=== PATIENT | female | born 1945 | race Caucasian/White ===

== ENCOUNTER 2020-09-29 05:42 | Inpatient (IN) | payer MEDICARE ==
[2020-09-29] MEDS ORDERED: LORazepam 2 MG/ML INJ IV STA ×2 (05:47→12:02)
[2020-09-29] MEDS ORDERED: IPRATROPIUM 0.5 MG/2.5 ML NEBU INHALATION STA (05:47)
[2020-09-29] MEDS ORDERED: methylPREDNISolone SOD SUCCI 125 MG/2 ML VIAL IV STA (05:47)
[2020-09-29] MEDS ORDERED: ALBUTEROL NEBULIZED 2.5 MG/3 ML INHALATION STA (05:47)
[2020-09-29] MEDS ORDERED: MORPHINE SULFATE 2 MG/ML SYRINGE IVP STA ×2 (05:48→05:58)
[2020-09-29] MEDS ORDERED: MORPHINE SULFATE 2 MG/ML SYRINGE IVP PRN (05:48)
[2020-09-29] MEDS: ENALAPRILAT 1.25 MG/ML 1 ML VIAL IVP STA ×2 (05:51→05:57)
[2020-09-29] MEDS ORDERED: ONDANSETRON 4 MG/2 ML VIAL IVP STA (05:54)
--- NOTE | 2020-09-29 05:57 | ED ---
SOB HPI - General Chief Complaint: Shortness of Breath Stated Complaint: SOB Time Seen by Provider: 09/29/20 05:47 Source: patient, EMS, RN notes reviewed, old records reviewed Mode of arrival: EMS Limitations: no limitations - History of Present Illness Initial Comments: This is a 75-year-old presenting in the [facility] secondary severe clinical condition patient has no history of high blood pressure COPD not on home O2. Patient landed difficulty breathing about 5 hours prior to EMS arrival found to be in severe shortness of breath feeling tense work of breathing and placed on BiPAP per EMS. MD Complaint: shortness of breath, cough, "asthma attack", anxiety -: days(s) Severity: moderate Severity scale (1-10): 7 Quality: aching Consistency: constant Improves With: nothing Worsens With: nothing Known History Of: asthma, congestive heart failure Context: recent URI Associated Symptoms: chest pain, cough, syncope Treatments Prior to Arrival: none - Related Data Home Medications Medication Instructions Recorded Confirmed ALPRAZolam [Xanax] 0.5 mg PO TID PRN 09/29/20 09/29/20 Azithromycin [Zithromax Z-pack (6 See Taper PO DIRECTED 09/29/20 09/29/20 tabs)] Budesonide [Pulmicort] 0.5 mg INHALATION RT-BID 09/29/20 09/29/20 Ibuprofen [Motrin Ib] 200 mg PO Q8H PRN 09/29/20 09/29/20 Ipratropium-Albuterol Nebulize 3 ml INHALATION RT-Q6H 09/29/20 09/29/20 [Duoneb 0.5 mg-3 mg/3 ml Soln] Montelukast [Singulair] 10 mg PO DAILY 09/29/20 09/29/20 Olmesartan/Hydrochlorothiazide 1 tab PO DAILY 09/29/20 09/29/20 [Benicar Hct 40-25 mg Tablet] diphenhydrAMINE [Benadryl] 25 mg PO QID PRN 09/29/20 09/29/20 predniSONE 50 mg PO DAILY 09/29/20 09/29/20 Allergies Allergy/AdvReac Type Severity Reaction Status Date / Time Penicillins Allergy Unknown Verified 09/29/20 06:59 hydrocodone AdvReac Nausea & Verified 09/29/20 06:59 Vomiting Review of Systems ROS Statement: Those systems with pertinent positive or pertinent negative responses have been documented in the HPI. ROS Other: All systems not noted in ROS Statement are negative. Past Medical History Past Medical History: COPD, Hypertension History of Any Multi-Drug Resistant Organisms: None Reported Past Surgical History: Bladder Surgery Past Psychological History: Anxiety, Depression Smoking Status: Current every day smoker Past Alcohol Use History: None Reported Past Drug Use History: None Reported - Past Family History Mother Family Medical History: Congestive Heart Failure (CHF) Father Family Medical History: Myocardial Infarction ([place]) General Exam Limitations: no limitations General appearance: alert, anxious, in distress, cachectic Head exam: Present: atraumatic, normocephalic, normal inspection Eye exam: Present: normal appearance, PERRL, EOMI. Absent: scleral icterus, conjunctival injection, periorbital swelling ENT exam: Present: normal exam, mucous membranes dry Neck exam: Present: normal inspection. Absent: tenderness, meningismus, lymphadenopathy Respiratory exam: Present: respiratory distress, wheezes, accessory muscle use, decreased breath sounds, prolonged expiratory. Absent: rales, rhonchi, stridor Cardiovascular Exam: Present: tachycardia, normal heart sounds. Absent: systolic murmur, diastolic murmur, rubs, gallop, clicks GI/Abdominal exam: Present: soft, normal bowel sounds. Absent: distended, tenderness, guarding, rebound, rigid Extremities exam: Present: normal inspection, full ROM, normal capillary refill. Absent: tenderness, pedal edema, joint swelling, calf tenderness Back exam: Present: normal inspection Neurological exam: Present: alert, oriented X3, CN II-XII intact Psychiatric exam: Present: normal affect, normal mood Skin exam: Present: warm, dry, intact, normal color. Absent: rash Course Vital Signs 09/29/20 09/29/20 09/29/20 05:44 05:51 05:52 Temperature Pulse Rate 125 H 113 H Respiratory 30 H Rate Blood Pressure 235/126 210/109 O2 Sat by Pulse 96 Oximetry 09/29/20 09/29/20 09/29/20 05:55 06:00 06:13 Temperature 97.5 F L Pulse Rate 112 H 102 H Respiratory 20 23 34 H Rate Blood Pressure 166/85 160/122 O2 Sat by Pulse 100 98 Oximetry 09/29/20 09/29/2009/29/20 06:15 06:25 06:27 Temperature 98.1 F Pulse Rate 112 H 105 H 110 H Respiratory 28 H Rate Blood Pressure 134/98 O2 Sat by Pulse 98 Oximetry 09/29/20 09/29/20 09/29/20 06:30 07:14 08:34 Temperature Pulse Rate 106 H 89 86 Respiratory 18 18 18 Rate Blood Pressure 115/64 120/71 O2 Sat by Pulse 100 100 Oximetry 09/29/20 09/29/20 09/29/20 08:44 09:19 11:03 Temperature Pulse Rate 88 80 86 Respiratory 18 18 18 Rate Blood Pressure 109/64 O2 Sat by Pulse 98 Oximetry 09/29/20 09/29/20 11:14 11:18 Temperature Pulse Rate 86 76 Respiratory 18 18 Rate Blood Pressure 138/69 O2 Sat by Pulse 95 Oximetry - Reevaluation(s) Reevaluation #1: 09/29/20 06:15 Medical record is reviewed Reevaluation #2: 09/29/20 06:16 Patient's severe us for a stress with severe work of breathing placed on BiPAP showing improvement in both vital signs heart rate and blood pressure - Consultations Consultation #1: Spoke with Dr. fine who is okay to admit this patient Medical Decision Making - Medical Decision Making 65 female DF for evaluation of severe COPD exacerbation severe hypertensive urgency emergency secondary shortness of breath and work of breathing. Patient is hypoxic placed on BiPAP on arrival to ER, x-ray otherwise negative. Coronavirus is negative. Patient will be admitted for continued evaluation management - Lab Data Result diagrams: 09/29/20 05:51 09/29/20 07:23 Lab Results 09/29/20 09/29/20 09/29/20 Range/Units 05:46 05:46 05:48 WBC (3.8-10.6) k/uL RBC (3.80-5.40) m/uL Hgb (11.4-16.0) gm/dL Hct (34.0-46.0) % MCV (80.0-100.0) fL MCH (25.0-35.0) pg MCHC (31.0-37.0) g/dL RDW (11.5-15.5) % Plt Count (150-450) k/uL MPV Neutrophils % % Lymphocytes % % Monocytes % % Eosinophils % % Basophils % % Neutrophils # (1.3-7.7) k/uL Lymphocytes # (1.0-4.8) k/uL Monocytes # (0-1.0) k/uL Eosinophils # (0-0.7) k/uL Basophils # (0-0.2) k/uL PT (9.0-12.0) sec INR (<1.2) APTT (22.0-30.0) sec VBG pH 7.22 L (7.31-7.41) VBG pCO2 69 H (37-51) mmHg VBG HCO3 27 (24-28) mmol/L Sodium 136 L (137-145) mmol/L Potassium 6.0 H (3.5-5.1) mmol/L Chloride 103 (98-107) mmol/L Carbon Dioxide 26 (22-30) mmol/L Anion Gap 7 mmol/L BUN 19 H (7-17) mg/dL Creatinine 1.10 H (0.52-1.04) mg/dL Est GFR (CKD-EPI)AfAm 56 (>60 ml/min/1.73 sqM) Est GFR (CKD-EPI)NonAf 49 (>60 ml/min/1.73 sqM) Glucose 144 H (74-99) mg/dL Plasma Lactic Acid Jc (0.7-2.0) mmol/L Calcium 9.5 (8.4-10.2) mg/dL Magnesium 2.1 (1.6-2.3) mg/dL Total Bilirubin 0.9 (0.2-1.3) mg/dL AST 43 H (14-36) U/L ALT 20 (4-34) U/L Alkaline Phosphatase 95 (38-126) U/L Lactate Dehydrogenase 1092 H (313-618) U/L Creatine Kinase 207 H (30-135) U/L CK-MB (CK-2) 6.2 H (0.0-2.4) ng/mL Troponin I <0.012 (0.000-0.034) ng/mL NT-Pro-B Natriuret Pep pg/mL Total Protein 7.9 (6.3-8.2) g/dL Albumin 4.6 (3.5-5.0) g/dL Coronavirus (PCR) (Not Detectd) 09/29/20 09/29/20 09/29/20 Range/Units 05:49 05:51 05:51 WBC 17.9 H (3.8-10.6) k/uL RBC 4.94 (3.80-5.40) m/uL Hgb 15.4 (11.4-16.0) gm/dL Hct 47.4 H (34.0-46.0) % MCV 95.9 (80.0-100.0) fL MCH 31.3 (25.0-35.0) pg MCHC 32.6 (31.0-37.0) g/dL RDW 13.3 (11.5-15.5) % Plt Count 499 H (150-450) k/uL MPV 7.0 Neutrophils % 73 % Lymphocytes % 17 % Monocytes % 6 % Eosinophils % 2 % Basophils % 1 % Neutrophils # 13.2 H (1.3-7.7) k/uL Lymphocytes # 3.1 (1.0-4.8) k/uL Monocytes # 1.1 H (0-1.0) k/uL Eosinophils # 0.3 (0-0.7) k/uL Basophils # 0.1 (0-0.2) k/uL PT 9.5 (9.0-12.0) sec INR 0.9 (<1.2) APTT 20.9 L (22.0-30.0) sec VBG pH (7.31-7.41) VBG pCO2 (37-51) mmHg VBG HCO3 (24-28) mmol/L Sodium (137-145) mmol/L Potassium (3.5-5.1) mmol/L Chloride (98-107) mmol/L Carbon Dioxide (22-30) mmol/L Anion Gap mmol/L BUN (7-17) mg/dL Creatinine (0.52-1.04) mg/dL Est GFR (CKD-EPI)AfAm (>60 ml/min/1.73 sqM) Est GFR (CKD-EPI)NonAf (>60 ml/min/1.73 sqM) Glucose (74-99) mg/dL Plasma Lactic Acid Jc 1.1 (0.7-2.0) mmol/L Calcium (8.4-10.2) mg/dL Magnesium (1.6-2.3) mg/dL Total Bilirubin (0.2-1.3) mg/dL AST (14-36) U/L ALT (4-34) U/L Alkaline Phosphatase (38-126) U/L Lactate Dehydrogenase (313-618) U/L Creatine Kinase (30-135) U/L CK-MB (CK-2) (0.0-2.4) ng/mL Troponin I (0.000-0.034) ng/mL NT-Pro-B Natriuret Pep pg/mL Total Protein (6.3-8.2) g/dL Albumin (3.5-5.0) g/dL Coronavirus (PCR) (Not Detectd) 09/29/20 09/29/20 Range/Units 05:51 05:54 WBC (3.8-10.6) k/uL RBC (3.80-5.40) m/uL Hgb (11.4-16.0) gm/dL Hct (34.0-46.0) % MCV (80.0-100.0) fL MCH (25.0-35.0) pg MCHC (31.0-37.0) g/dL RDW (11.5-15.5) % Plt Count (150-450) k/uL MPV Neutrophils % % Lymphocytes % % Monocytes % % Eosinophils % % Basophils % % Neutrophils # (1.3-7.7) k/uL Lymphocytes # (1.0-4.8) k/uL Monocytes # (0-1.0) k/uL Eosinophils # (0-0.7) k/uL Basophils # (0-0.2) k/uL PT (9.0-12.0) sec INR (<1.2) APTT (22.0-30.0) sec VBG pH (7.31-7.41) VBG pCO2 (37-51) mmHg VBG HCO3 (24-28) mmol/L Sodium (137-145) mmol/L Potassium (3.5-5.1) mmol/L Chloride (98-107) mmol/L Carbon Dioxide (22-30) mmol/L Anion Gap mmol/L BUN (7-17) mg/dL Creatinine (0.52-1.04) mg/dL Est GFR (CKD-EPI)AfAm (>60 ml/min/1.73 sqM) Est GFR (CKD-EPI)NonAf (>60 ml/min/1.73 sqM) Glucose (74-99) mg/dL Plasma Lactic Acid Jc (0.7-2.0) mmol/L Calcium (8.4-10.2) mg/dL Magnesium (1.6-2.3) mg/dL Total Bilirubin (0.2-1.3) mg/dL AST (14-36) U/L ALT (4-34) U/L Alkaline Phosphatase (38-126) U/L Lactate Dehydrogenase (313-618) U/L Creatine Kinase (30-135) U/L CK-MB (CK-2) (0.0-2.4) ng/mL Troponin I (0.000-0.034) ng/mL NT-Pro-B Natriuret Pep 407 pg/mL Total Protein (6.3-8.2) g/dL Albumin (3.5-5.0) g/dL Coronavirus (PCR) Not Detected (Not Detectd) - EKG Data -: EKG Interpreted by Me (EKG shows sinus tachycardia 122 NH 128 QRS 74 QTc 4:30) - Radiology Data Radiology results: report reviewed (Chest x-rays negative for acute disease), image reviewed Critical Care Time Critical Care Time: Yes Total Critical Care Time: 31 Disposition Clinical Impression: Acute exacerbation of chronic obstructive pulmonary disease, Acute respiratory failure, Hypertension, Hypoxia Disposition: ADMITTED IP TO THIS HOSP Condition: Serious Is patient prescribed a controlled substance at d/c from ED?: No
[2020-09-29 06:16] LABS: VBG PH 7.22 (7.31-7.41)
[2020-09-29 06:17] LABS: Basophils # (A) 0.1 k/uL (0-0.2); Basophils % (A) 1 %; Eosinophils # (A) 0.3 k/uL (0-0.7); Eosinophils % (A) 2 %; HCT 47.4 % (34.0-46.0); HGB 15.4 gm/dL (11.4-16.0); Lymphocytes # (A) 3.1 k/uL (1.0-4.8); Lymphocytes % (A) 17 %; MCH 31.3 pg (25.0-35.0); MCHC 32.6 g/dL (31.0-37.0); MCV 95.9 fL (80.0-100.0); Monocytes # (A) 1.1 k/uL (0-1.0); Monocytes % (A) 6 %; Neutrophils # (A) 13.2 k/uL (1.3-7.7); Neutrophils % (A) 73 %; Platelet Count 499 k/uL (150-450); RBC 4.94 m/uL (3.80-5.40); RDW 13.3 % (11.5-15.5); WBC 17.9 k/uL (3.8-10.6)
--- NOTE | 2020-09-29 06:22 | XR ---
EXAM: XR Chest, 1 View CLINICAL HISTORY: ITS.REASON XR Reason: sob TECHNIQUE: Frontal view of the chest. COMPARISON: 09/11/2016 FINDINGS: Lungs: The lungs are well-aerated without lobar consolidation, accounting for limitations in evaluation of the lung apices secondary to overlying respiratory artifact. Minimal linear subsegmental atelectatic changes at the right lung base are similar to the previous examination. The pulmonary vas suture demonstrates no significant radiographic abnormality. Pleural space: Unremarkable. No pneumothorax. No large pleural effusion. Heart: Unremarkable. No cardiomegaly. Mediastinum: No significant abnormality identified. The trachea is midline. Bones/joints: Unremarkable. IMPRESSION: No focal consolidation or significant alteration from the previous examination.
[2020-09-29] MEDS ORDERED: SODIUM CHLORIDE 0.9% 1,000 ML IV STA ×2 (06:33)
[2020-09-29] MEDS ORDERED: SODIUM CHLORIDE 0.9% 500 ML 500 ML IV STA (06:33)
[2020-09-29 06:38] LABS: INR 0.9 (<1.2); Prothrombin Time 9.5 sec (9.0-12.0)
[2020-09-29 06:48] LABS: Albumin 4.6 g/dL (3.5-5.0); Calcium 9.5 mg/dL (8.4-10.2); Magnesium 2.1 mg/dL (1.6-2.3); Total Bilirubin 0.9 mg/dL (0.2-1.3); Total Protein 7.9 g/dL (6.3-8.2)
[2020-09-29] MEDS ORDERED: IPRATROPIUM-ALBUTEROL 3 ML NEB INHALATION PRN (06:57)
[2020-09-29 07:05] LABS: Partial Thromboplastin Time 20.9 sec (22.0-30.0)
[2020-09-29] MEDS ORDERED: SODIUM BICARB 8.4% 50 ML SYR (1 MEQ/ML) IV STA (07:05)
[2020-09-29] MEDS ORDERED: DEXTROSE 50% SYRINGE 50 ML IVP STA (07:05)
[2020-09-29] MEDS ORDERED: INSULIN REGULAR 100 UNIT/ML VIAL IV ONE (07:05)
[2020-09-29 07:13] LABS: Creatine Kinase MB 6.2 ng/mL (0.0-2.4); Troponin I <0.012 ng/mL (0.000-0.034)
[2020-09-29] MEDS: ENOXAPARIN 40 MG/0.4 ML SYRINGE SQ SCH (07:53)
[2020-09-29] MEDS: ALBUTEROL NEBULIZED 2.5 MG/3 ML INHALATION SCH ×2 (08:34→11:37)
[2020-09-29] MEDS: IPRATROPIUM-ALBUTEROL 3 ML NEB INHALATION SCH ×4 (08:34→20:33)
--- NOTE | 2020-09-29 08:54 | CONS ---
CONSULTATION PULMONARY/CRITICAL CARE CONSULTATION: DATE OF CONSULTATION: September 29, 2020 This is a 75-year-old female who sees Dr. Iglesias. She comes into the emergency room with 3 or 4 days worth of increasing shortness of breath. The patient apparently does have a history of underlying COPD. She takes nebulizer treatments at home. She apparently has never seen a lung doctor. She does have oxygen at home that she primarily uses at nighttime and when she exerts herself. She was seen in the emergency room by the ER physician. She was admitted with a diagnosis of COPD exacerbation. Her COVID test was negative. Anyway, the patient is currently on BiPAP with the settings of IPAP 12, EPAP 5 and 80%. I have asked the respiratory therapist to turn down the FiO2. In addition, she is on saline at 130 mL an hour. We are going to turn that down to 75 mL an hour. We will make sure the patient has DuoNeb q.i.d. and p.r.n. as well as formoterol 20 mcg and Pulmicort 1 mg twice a day and Solu-Medrol 60 mg q.6. In addition, the patient will be placed on doxycycline 100 mg twice a day. PAST MEDICAL HISTORY: Positive for COPD and hypertension. SURGICAL HISTORY: Surgical history includes bladder surgery. SOCIAL HISTORY: Positive for ongoing tobacco use. She denies any alcohol use or illicit drug use. FAMILY HISTORY: Noncontributory. Today she is with her daughter, her grandson and granddaughter here in the ER. ALLERGIES: PENICILLIN. HOME MEDICATIONS: Home medications include Pulmicort, DuoNeb, Benadryl, olmesartan/hydrochlorothiazide, which is Benicar HCT 40/25, ibuprofen, prednisone, Singulair, Zithromax, and Xanax. REVIEW OF SYSTEMS: Review of systems is difficult to obtain from this patient as she is a bit lethargic. She is feeling a bit better. Her major complaint coming into the emergency room was shortness of breath. PHYSICAL EXAMINATION: VITAL SIGNS: Current vital signs are reviewed. Her temperature is 97.5, heart rate is 106, respiratory rate 18, blood pressure 120/71, mean 87 and saturations on the BiPAP are 100%. GENERAL: Appears in no acute distress. HEENT: Examination is grossly unremarkable. NECK: Supple. Full range of motion. No adenopathy. Neck veins are flat. CARDIOVASCULAR: Examination reveals tachycardia. Heart rate about 100. S1, S2 normal. Heart sounds are distant. No murmur. LUNGS: Reveal diffuse inspiratory and expiratory wheezes and rhonchi. Breath sounds are diminished throughout. There is prolongation. No crackles. ABDOMEN: Obese. Bowel sounds are heard. EXTREMITIES: Are intact. No edema. SKIN: Without rash. NEUROLOGIC: Examination is brief but nonfocal. She is quite lethargic. LABS: Labs are reviewed. White count 17.9, hemoglobin, hematocrit were stable, platelet count 499,000. PT, INR normal. PTT 20.9. Venous blood gas shows a pCO2 of 69 and a pH of 7.22. Sodium 136, potassium 6 repeat 4.6, chloride 103, CO2 of 26. Anion gap is 7. BUN and creatinine were 19 and 1.10. Glucose was 144. LDH 1092. CK 207, CK-MB 6.2. Troponin was normal. N-terminal proBNP was 407. COVID test was negative. A chest x-ray shows small bilateral pleural effusions and changes of underlying COPD. CURRENT MEDICATIONS: Current medications are reviewed. The patient is on Pulmicort, doxycycline, Lovenox, formoterol, DuoNeb, Solu-Medrol, morphine, and saline at 75 mL an hour. ASSESSMENT: 1. Chronic obstructive pulmonary disease exacerbation, in a patient with chronic hypoxemic respiratory failure. 2. COVID-19 testing negative. 3. History of hypertension. 4. Ongoing tobacco use with nicotine addiction. PLAN: The patient is on DuoNeb q.i.d. and p.r.n. We also added Pulmicort 1 mg and formoterol 20 mcg twice a day. She will continue on Solu-Medrol 60 mg q.6. We added doxycycline 100 mg twice a day. We discontinued a lot of unnecessary medications including benzodiazepine. I have asked respiratory therapy to come down and titrate the FiO2 down. No additional recommendations are made. We will continue to follow. She can be admitted to the general medical floor with telemetry monitoring. HARJIT / ABIGAIL: [id number] /
[2020-09-29] MEDS: DOXYCYCLINE 100 MG CAP PO SCH ×2 (09:20→21:24)
[2020-09-29] MEDS: methylPREDNISolone SOD SUCCI 125 MG/2 ML VIAL IV SCH ×3 (12:23→23:54)
--- NOTE | 2020-09-29 12:29 | P.HPIM ---
History of Present Illness H&P Date: 09/29/20 Chief Complaint: shortness of breath This is a 75-year-old female patient of Dr. Iglesias with a past medical history of advanced COPD on supplemental home oxygen, tobacco use, and hypertension. Patient presented to the emergency room with progressive shortness of breath. Patient was states she was seen by urgent care about 3-4 day ago and treated for bronchitis, she was placed on azithromycin and a prednisone taper. Patient reports over the last few days she has progressively been getting more short of breath and having a harder time breathing. Patient eventually called EMS where she was found to be in severe respiratory distress. Patient was placed on BiPAP and eventually breathing did stabalize. Chest x-ray showed small bilateral pleural effusions and underlying COPD. Pulmonary has been consulted. She was started on Duonebs, Pulmicort, Formoterol and Solumedrol. Her COVID testing was negative. Review of Systems Constitutional: Reports fatigue, Reports weakness, Denies chills, Denies fever Ears, nose, mouth and throat: Denies headache, Denies nasal congestion, Denies nose pain, Denies odynophagia, Denies sinus pain, Denies sinus pressure, Denies sore throat Cardiovascular: Reports dyspnea on exertion, Reports shortness of breath, Denies chest pain, Denies edema, Denies irregular heart beat, Denies leg edema, Denies orthopnea, Denies palpitations, Denies syncope Respiratory: Reports congestion, Reports cough, Reports cough with sputum, Reports dyspnea, Reports home oxygen, Reports wheezing Gastrointestinal: Denies abdominal pain, Denies constipation, Denies diarrhea, Denies indigestion, Denies loss of appetite, Denies nausea, Denies vomiting Genitourinary: Denies difficulty voiding, Denies urgency, Denies urinary frequency Musculoskeletal: Denies arm numbness/tingling, Denies frequent falls, Denies leg numbness/tingling, Denies muscle weakness Integumentary: Denies lesions, Denies pruritus, Denies rash, Denies sores, D enies wounds Neurological: Denies gait dysfunction, Denies headaches, Denies loss of vision, Denies numbness, Denies paralysis, Denies syncope, Denies weakness Psychiatric: Denies anxiety, Denies confusion, Denies irritability, Denies memory loss, Denies suicidal ideation Endocrine: Reports fatigue, Denies palpitations, Denies polydipsia, Denies polyphagia, Denies polyuria Past Medical History Past Medical History: COPD, Hypertension Additional Past Medical History / Comment(s): on home oxygen PRN and at HS History of Any Multi-Drug Resistant Organisms: None Reported Past Surgical History: Bladder Surgery Additional Past Surgical History / Comment(s): carotid endarterectomy Past Psychological History: Anxiety, Depression Smoking Status: Current every day smoker Past Alcohol Use History: None Reported Past Drug Use History: None Reported - Past Family History Mother Family Medical History: Congestive Heart Failure (CHF) ( her 80s) Father Family Medical History: Myocardial Infarction ([place]) Medications and Allergies Home Medications Medication Instructions Recorded Confirmed Type ALPRAZolam [Xanax] 0.5 mg PO TID PRN 09/29/20 09/29/20 History Azithromycin [Zithromax Z-pack (6 See Taper PO DIRECTED 09/29/20 09/29/20 History tabs)] Budesonide [Pulmicort] 0.5 mg INHALATION RT-BID 09/29/20 09/29/20 History Ibuprofen [Motrin Ib] 200 mg PO Q8H PRN 09/29/20 09/29/20 History Ipratropium-Albuterol Nebulize 3 ml INHALATION RT-Q6H 09/29/20 09/29/20 History [Duoneb 0.5 mg-3 mg/3 ml Soln] Montelukast [Singulair] 10 mg PO DAILY 09/29/20 09/29/20 History Olmesartan/Hydrochlorothiazide 1 tab PO DAILY 09/29/20 09/29/20 History [Benicar Hct 40-25 mg Tablet] diphenhydrAMINE [Benadryl] 25 mg PO QID PRN 09/29/20 09/29/20 History predniSONE 50 mg PO DAILY 09/29/20 09/29/20 History Allergies Allergy/AdvReac Type Severity Reaction Status Date / Time Penicillins Allergy Unknown Verified 09/29/20 06:59 hydrocodone AdvReac Nausea & Verified 09/29/20 06:59 Vomiting Physical Exam Vitals: Vital Signs Temp Pulse Resp BP Pulse Ox 09/29/20 11:18 76 18 138/69 95 09/29/20 11:14 86 18 09/29/20 11:03 86 18 09/29/20 09:19 80 18 109/64 98 09/29/20 08:44 88 18 09/29/20 08:34 86 18 09/29/20 07:14 89 18 120/71 100 09/29/20 06:30 106 H 18 115/64 100 09/29/20 06:27 110 H 09/29/20 06:25 98.1 F 105 H 28 H 134/98 98 09/29/20 06:15 112 H 09/29/20 06:13 34 H 09/29/20 06:00 97.5 F L 102 H 23 160/122 98 09/29/20 05:55 112 H 20 166/85 100 09/29/20 05:52 210/109 09/29/20 05:51 113 H 09/29/20 05:44 125 H 30 H 235/126 96 Intake and Output 09/28/20 09/29/20 09/29/20 22:59 06:59 14:59 Other: Weight 58.967 kg - Constitutional General appearance: cooperative, mild distress - EENT Eyes: EOMI, PERRLA, normal appearance ENT: hearing grossly normal, no normal oropharynx, no pharyngeal erythema, no thrush - Neck Neck: no lymphadenopathy, normal ROM - Respiratory Respiratory: bilateral: diminished, rhonchi, wheezing, negative: dullness, rales - Cardiovascular Rhythm: regular Heart sounds: normal: S1, S2 - Gastrointestinal General gastrointestinal: no distended, normal bowel sounds, no organomegaly, soft, no tenderness - Neurologic Neurologic: CNII-XII intact - Musculoskeletal Musculoskeletal: generalized weakness, strength equal bilaterally - Psychiatric Psychiatric: A&O x's 3, appropriate affect, intact judgment & insight Results CBC & Chem 7: 09/29/20 05:51 09/29/20 07:23 Labs: Abnormal Lab Results - Last 24 Hours (Table) 09/29/20 09/29/20 09/29/20 Range/Units 05:46 05:46 05:48 WBC (3.8-10.6) k/uL Hct (34.0-46.0) % Plt Count (150-450) k/uL Neutrophils # (1.3-7.7) k/uL Monocytes # (0-1.0) k/uL APTT (22.0-30.0) sec VBG pH 7.22 L (7.31-7.41) VBG pCO2 69 H (37-51) mmHg Sodium 136 L (137-145) mmol/L Potassium 6.0 H (3.5-5.1) mmol/L BUN 19 H (7-17) mg/dL Creatinine 1.10 H (0.52-1.04) mg/dL Glucose 144 H (74-99) mg/dL AST 43 H (14-36) U/L Lactate Dehydrogenase 1092 H (313-618) U/L Creatine Kinase 207 H (30-135) U/L CK-MB (CK-2) 6.2 H (0.0-2.4) ng/mL 09/29/20 09/29/20 Range/Units 05:51 05:51 WBC 17.9 H (3.8-10.6) k/uL Hct 47.4 H (34.0-46.0) % Plt Count 499 H (150-450) k/uL Neutrophils # 13.2 H (1.3-7.7) k/uL Monocytes # 1.1 H (0-1.0) k/uL APTT 20.9 L (22.0-30.0) sec VBG pH (7.31-7.41) VBG pCO2 (37-51) mmHg Sodium (137-145) mmol/L Potassium (3.5-5.1) mmol/L BUN (7-17) mg/dL Creatinine (0.52-1.04) mg/dL Glucose (74-99) mg/dL AST (14-36) U/L Lactate Dehydrogenase (313-618) U/L Creatine Kinase (30-135) U/L CK-MB (CK-2) (0.0-2.4) ng/mL Assessment and Plan Plan: 1. Acute hypoxic respiratory failure secondary to COPD exacerbation and bronchitis. Continue BiPAP, continue duo nebs along with Pulmicort and Perforomist, Solu-Medrol 60 mg IV every 6 hours and doxycycline 100 mg twice a day. Pulmonary consult appreciated. 2. Acute COPD exacerbation with severe bronchitis. See plan #1 3. Chronic tobacco use. Discussed smoking cessation, if needed may do nicotine patch 4. Hypertension. Continue Benicar 40/25 mg daily 5. Generalized anxiety disorder. hold Xanax DVT prophylaxis. Lovenox GI Prophylaxis. Pantoprazole The above impression and plan of care have been discussed and directed by signing physician. Pretty Nunez nurse practitioner acting as scribe for signing physician.
[2020-09-29] MEDS: FORMOTEROL FUMARATE 20 MCG/2 ML NEBU INHALATION SCH (20:33)
[2020-09-29] MEDS: BUDESONIDE 1 MG/2 ML NEBU INHALATION SCH (20:33)
[2020-09-30] MEDS: methylPREDNISolone SOD SUCCI 125 MG/2 ML VIAL IV SCH ×4 (06:13→23:33)
[2020-09-30] MEDS: MONTELUKAST 10 MG TAB PO SCH (08:27)
[2020-09-30] MEDS: ENOXAPARIN 40 MG/0.4 ML SYRINGE SQ SCH (08:27)
[2020-09-30] MEDS: hydroCHLOROthiazide 25 MG TAB PO SCH (08:27)
[2020-09-30] MEDS: LOSARTAN 50 MG TAB PO SCH (08:27)
[2020-09-30] MEDS: PANTOPRAZOLE 40 MG TABLET PO SCH (08:27)
[2020-09-30] MEDS: DOXYCYCLINE 100 MG CAP PO SCH ×2 (08:28→21:14)
[2020-09-30] MEDS: FORMOTEROL FUMARATE 20 MCG/2 ML NEBU INHALATION SCH ×2 (08:31→19:47)
[2020-09-30] MEDS: IPRATROPIUM-ALBUTEROL 3 ML NEB INHALATION SCH ×4 (08:31→19:47)
[2020-09-30] MEDS: BUDESONIDE 1 MG/2 ML NEBU INHALATION SCH ×2 (08:31→19:47)
[2020-09-30] MEDS: NICOTINE 14MG/24HR PATCH TRANSDERM SCH (08:38)
--- NOTE | 2020-09-30 12:30 | P.PN ---
Subjective Progress Note Date: 09/30/20 Principal diagnosis: Acute COPD exacerbation, 75-year-old white female patient who was admitted to the hospital on 09/29/2020 with him symptoms of increasing shortness of breath. She tested negative for COVID, chest x-ray showed small bilateral pleural effusions and changes of underlying COPD. Patient was started on breathing treatments, IV steroids, she did require BiPAP support, today she is feeling better. She is currently on 3 L of oxygen, she is tolerating it well, she is still quite dyspneic and bronchospastic, but overall feeling on better. Pulse ox of 93%, she's been afebrile, his on bronchodilators in the form of Pulmicort and Perforomist, DuoNeb, IV steroids at 60 mg every 6 hours. No Fever or chills Objective - Vital Signs Vital signs: Vital Signs Temp 97.8 F 09/30/20 08:00 Pulse 96 09/30/20 08:16 Resp 16 09/30/20 08:00 BP 120/81 09/30/20 08:00 Pulse Ox 93 L 09/30/20 08:00 Intake & Output 09/29/20 09/30/20 09/30/20 18:59 06:59 18:59 Intake Total 200 Balance 200 Weight 69.5 kg Intake: Intake, IV Titration 200 Amount Sodium Chloride 0.9% 1, 200 000 ml @ 75 mls/hr IV . [id number] [facility] Rx#:[id number] - Exam GENERAL EXAM: Alert, very pleasant, 75-year-old white female, on 3 L of oxygen and the pulse ox of 92%, bronchospastic, dyspneic, although improved from yesterday's exam, comfortable in no apparent distress. HEAD: Normocephalic/atraumatic. EYES: Normal reaction of pupils, equal size. Conjunctiva pink, sclera white. NOSE: Clear with pink turbinates. THROAT: No erythema or exudates. NECK: No masses, no JVD, no thyroid enlargement, no adenopathy. CHEST: No chest wall deformity. Symmetrical expansion. LUNGS: Equal air entry with diffuse wheezes CVS: Regular rate and rhythm, normal S1 and S2, no gallops, no murmurs, no rubs ABDOMEN: Soft, nontender. No hepatosplenomegaly, normal bowel sounds, no guarding or rigidity. EXTREMITIES: No clubbing, no edema, no cyanosis, 2+ pulses and upper and lower extremities. MUSCULOSKELETAL: Muscle strength and tone normal. SPINE: No scoliosis or deformity SKIN: No rashes CENTRAL NERVOUS SYSTEM: Alert and oriented -3. No focal deficits, tone is normal in all 4 extremities. PSYCHIATRIC: Alert and oriented -3. Appropriate affect. Intact judgment and insight. - Labs CBC & Chem 7: 09/29/20 05:51 09/29/20 07:23 Labs: Microbiology - Last 24 Hours (Table) 09/29/20 06:29 Blood Culture - Preliminary Blood No Growth after 24 hours Assessment and Plan Plan: Assessment: #1. Acute exacerbation of chronic obstructive pulmonary disease. Patient ruled out for COVID 19 #2. Chronic hypoxemic respiratory failure related to advanced COPD #3. Ongoing and chronic tobacco use #4. History of hypertension Plan: Continue with current medical treatment, will add doxycycline for antibiotic coverage, continue with bronchodilators and IV steroids, may use BiPAP as needed. Uncle spastic and dyspneic, not quite ready for discharge, we'll continue with current medical treatment I performed a history & physical examination of the patient and discussed their management with my nurse practitioner, Stacie Hong. I reviewed the nurse practitioner's note and agree with the documented findings and plan of care. Lung sounds are positive for diminished breath sounds, wheezing and rhonchi The findings and the impression was discussed with the patient. I attest to the documentation by the nurse practitioner. Time with Patient: Less than 30
--- NOTE | 2020-09-30 12:41 | P.PN ---
Subjective This is a 75-year-old female patient of Dr. Iglesias with a past medical history of advanced COPD on supplemental home oxygen, tobacco use, and hy pertension. Patient presented to the emergency room with progressive shortness of breath. Patient was states she was seen by urgent care about 3-4 day ago and treated for bronchitis, she was placed on azithromycin and a prednisone taper. Patient reports over the last few days she has progressively been getting more short of breath and having a harder time breathing. Patient eventually called EM S where she was found to be in severe respiratory distress. Patient was placed on BiPAP and eventually breathing did stabalize. Chest x-ray showed small bilateral pleural effusions and underlying COPD. Pulmonary has been consulted. She was started on Duonebs, Pulmicort, Formoterol and Solumedrol. Her COVID testing was negative. 09/30: Patient evaluated this morning, resting in bed comfortably, doing a nebulizer treatment, she is in no acute distress. Patient was able to wean off of the BiPAP and is currently on 3 L nasal oxygen saturation 93%. She continues with the DuoNeb's along with Pulmicort, doxycycline, Perforomist, and Solu- Medrol 60 mg IV every 6 hours. Vital signs are stable, she is afebrile 97.8, heart rate 94, respiratory of 16, blood pressure 120/81. Blood cultures show no growth to date. Patient is improving, but not ready for discharge, will continue with current treatment plan. Pulmonary following. Objective - Vital Signs Vital signs: Vital Signs Temp 97.8 F 09/30/20 08:00 Pulse 96 09/30/20 08:16 Resp 16 09/30/20 08:00 BP 120/81 09/30/20 08:00 Pulse Ox 93 L 09/30/20 08:00 Intake & Output 09/29/20 09/30/20 09/30/20 18:59 06:59 18:59 Intake Total 200 Balance 200 Weight 69.5 kg Intake: Intake, IV Titration 200 Amount Sodium Chloride 0.9% 1, 200 000 ml @ 75 mls/hr IV . [id number] [facility] Rx#:[id number] - Exam - Constitutional General appearance: cooperative, no acute distress - EENT Eyes: EOMI, PERRLA, normal appearance ENT: hearing grossly normal, no normal oropharynx, no pharyngeal erythema, no thrush - Neck Neck: no lymphadenopathy, normal ROM - Respiratory Respiratory: bilateral: diminished, diffuse rhonchi, slight expiratory wheeze - Cardiovascular Rhythm: regular Heart sounds: normal: S1, S2 - Gastrointestinal General gastrointestinal: no distended, normal bowel sounds, no organomegaly, soft, no tenderness - Neurologic Neurologic: CNII-XII intact - Musculoskeletal Musculoskeletal: generalized weakness, strength equal bilaterally - Psychiatric Psychiatric: A&O x's 3, appropriate affect, intact judgment & insight - Labs CBC & Chem 7: 09/29/20 05:51 09/29/20 07:23 Labs: Microbiology - Last 24 Hours (Table) 09/29/20 06:29 Blood Culture - Preliminary Blood No Growth after 24 hours Assessment and Plan Plan: 1. Acute hypoxic respiratory failure secondary to COPD exacerbation and bronchitis. Continue BiPAP, continue duo nebs along with Pulmicort and Perforomist, Solu-Medrol 60 mg IV every 6 hours and doxycycline 100 mg twice a day. Pulmonary consult appreciated. 2. Acute COPD exacerbation with severe bronchitis. See plan #1 3. Chronic tobacco use. Discussed smoking cessation, Nicotine patch ordered 4. Hypertension. Continue Benicar 40/25 mg daily 5. Generalized anxiety disorder. hold Xanax DVT prophylaxis. Lovenox GI Prophylaxis. Pantoprazole The above impression and plan of care have been discussed and directed by signing physician. Pretty Nunez nurse practitioner acting as scribe for signing physician.
[2020-10-01] MEDS: methylPREDNISolone SOD SUCCI 125 MG/2 ML VIAL IV SCH (06:04)
[2020-10-01 06:38] LABS: HCT 40.2 % (34.0-46.0); HGB 12.7 gm/dL (11.4-16.0); MCH 30.6 pg (25.0-35.0); MCHC 31.6 g/dL (31.0-37.0); MCV 96.9 fL (80.0-100.0); Mean Platelet Volume 7.6; Platelet Count 378 k/uL (150-450); RBC 4.14 m/uL (3.80-5.40); RDW 13.8 % (11.5-15.5); WBC 11.9 k/uL (3.8-10.6)
[2020-10-01] MEDS: MONTELUKAST 10 MG TAB PO SCH (07:58)
[2020-10-01] MEDS: LOSARTAN 50 MG TAB PO SCH (07:58)
[2020-10-01] MEDS: hydroCHLOROthiazide 25 MG TAB PO SCH (07:58)
[2020-10-01] MEDS: NICOTINE 14MG/24HR PATCH TRANSDERM SCH (07:58)
[2020-10-01] MEDS: PANTOPRAZOLE 40 MG TABLET PO SCH (07:58)
[2020-10-01] MEDS: DOXYCYCLINE 100 MG CAP PO SCH ×2 (07:58→20:13)
[2020-10-01] MEDS: ENOXAPARIN 40 MG/0.4 ML SYRINGE SQ SCH (07:58)
[2020-10-01] MEDS: FORMOTEROL FUMARATE 20 MCG/2 ML NEBU INHALATION SCH ×2 (09:11→19:36)
[2020-10-01] MEDS: BUDESONIDE 1 MG/2 ML NEBU INHALATION SCH ×2 (09:11→19:36)
[2020-10-01] MEDS: IPRATROPIUM-ALBUTEROL 3 ML NEB INHALATION SCH ×4 (09:11→19:36)
[2020-10-01 10:52] LABS: African American GFR (CKD) 50.8 (60.0-200.0); Anion Gap 9.1 mmol/L (4.00-12.00); BUN/Creat Ratio 20.83 Ratio (12.00-20.00); Calcium 9.3 mg/dL (8.7-10.3); Carbon Dioxide 24.9 mmol/L (21.6-31.8); Non-African American GFR(CKD) 43.9 (60.0-200.0); Potassium 4.3 mmol/L (3.5-5.5)
--- NOTE | 2020-10-01 12:36 | P.PN ---
Subjective Progress Note Date: 10/01/20 Principal diagnosis: Acute exacerbation of chronic obstructive pulmonary disease The patient is seen today 10/01/2020 in follow-up on the regular medical floor. She was admitted with an acute exacerbation of chronic obstructive pulmonary disease. Tested negative for CoVID 19 pneumonia. She is currently up in a chair at the bedside. Awake and alert in no acute distress. Maintaining O2 saturation in the low 90s on 3 L/m per nasal cannula. White count 11.9. Hemoglobin 12.7. Sodium 138. Potassium 4.3. Creatinine 1.2. Continued on bronchodilators, Vibramycin, IV steroids. NicoDerm patches in place.. Objective - Vital Signs Vital signs: Vital Signs Temp 97.8 F 10/01/20 06:59 Pulse 84 10/01/20 12:24 Resp 19 10/01/20 06:59 BP 146/83 10/01/20 06:59 Pulse Ox 90 L 10/01/20 06:59 Intake & Output 09/30/20 10/01/20 10/01/20 18:59 06:59 18:59 Output Total 700 350 Balance -700 -350 Output: Urine 700 350 Other: # Voids 1,100 - Exam GENERAL EXAM: Alert, active, pleasant 75-year-old female patient, on the liters per minute per nasal cannula, comfortable in no apparent distress. HEAD: Normocephalic. EYES: Normal reaction of pupils, equal size. NOSE: Clear with pink turbinates. THROAT: No erythema or exudates. NECK: No masses, no JVD. CHEST: No chest wall deformity. LUNGS: Equal air entry with end expiratory wheeze, diminished CVS: S1 and S2 normal with no audible murmur, regular rhythm. ABDOMEN: No hepatosplenomegaly, normal bowel sounds, no guarding or rigidity. SPINE: No scoliosis or deformity SKIN: No rashes CENTRAL NERVOUS SYSTEM: No focal deficits, tone is normal in all 4 extremities. EXTREMITIES: There is no peripheral edema. No clubbing, no cyanosis. Peripheral pulses are intact. - Labs CBC & Chem 7: 10/01/20 05:47 10/01/20 05:47 Labs: Abnormal Lab Results - Last 24 Hours (Table) 10/01/20 10/01/20 Range/Units 05:47 05:47 WBC 11.9 H (3.8-10.6) k/uL Est GFR (CKD-EPI)AfAm 50.8 L (60.0-200.0) Est GFR (CKD-EPI)NonAf 43.9 L (60.0-200.0) BUN/Creatinine Ratio 20.83 H (12.00-20.00) Ratio Glucose 151 H (70-110) mg/dL Microbiology - Last 24 Hours (Table) 09/29/20 06:29 Blood Culture - Preliminary Blood No Growth after 48 hours Assessment and Plan Assessment: 1 Acute exacerbation of chronic obstructive pulmonary disease. Patient ruled out for COVID 19 2 Chronic hypoxemic respiratory failure related to advanced COPD 3 Ongoing and chronic tobacco use 4 History of hypertension Plan: The patient was seen and evaluated by Dr. Pierre Improved but not quite back to her baseline Continue the current treatment plan Increase her activity as tolerated Again educated regarding the importance of complete smoking cessation We'll continue to follow I, the cosigning physician, performed a history & physical examination of the patient. Lungs sounds with bilateral end expiratory wheeze, diminished. Maintaining good O2 saturations in the 90s on 3 L/m per nasal cannula. I d iscussed the assessment and plan of care with my nurse practitioner, Stephanie Hanks. I attest to the above note as dictated by her.
[2020-10-01] MEDS: methylPREDNISolone SOD SUCCI 40 MG/ML 1 ML VIAL IV SCH ×2 (15:36→23:01)
[2020-10-02 06:50] LABS: HCT 40.9 % (34.0-46.0); HGB 13.7 gm/dL (11.4-16.0); MCH 32.2 pg (25.0-35.0); MCHC 33.5 g/dL (31.0-37.0); Mean Platelet Volume 7.1; Platelet Count 367 k/uL (150-450); RBC 4.26 m/uL (3.80-5.40); RDW 13.4 % (11.5-15.5); WBC 10.9 k/uL (3.8-10.6)
[2020-10-02] MEDS: IPRATROPIUM-ALBUTEROL 3 ML NEB INHALATION SCH ×4 (07:16→20:29)
[2020-10-02] MEDS: FORMOTEROL FUMARATE 20 MCG/2 ML NEBU INHALATION SCH ×2 (07:16→20:29)
[2020-10-02] MEDS: BUDESONIDE 1 MG/2 ML NEBU INHALATION SCH ×2 (07:16→20:29)
[2020-10-02] MEDS: MONTELUKAST 10 MG TAB PO SCH (07:45)
[2020-10-02] MEDS: PANTOPRAZOLE 40 MG TABLET PO SCH (07:45)
[2020-10-02] MEDS: DOXYCYCLINE 100 MG CAP PO SCH ×2 (07:46→20:03)
[2020-10-02] MEDS: hydroCHLOROthiazide 25 MG TAB PO SCH (07:46)
[2020-10-02] MEDS: methylPREDNISolone SOD SUCCI 40 MG/ML 1 ML VIAL IV SCH (07:46)
[2020-10-02] MEDS: LOSARTAN 50 MG TAB PO SCH (07:46)
[2020-10-02] MEDS: ENOXAPARIN 40 MG/0.4 ML SYRINGE SQ SCH (07:46)
[2020-10-02] MEDS: NICOTINE 14MG/24HR PATCH TRANSDERM SCH (07:47)
[2020-10-02 09:06] LABS: African American GFR (CKD) 50.8 (60.0-200.0); Anion Gap 6.5 mmol/L (4.00-12.00); BUN/Creat Ratio 20.83 Ratio (12.00-20.00); Calcium 9.5 mg/dL (8.7-10.3); Carbon Dioxide 32.5 mmol/L (21.6-31.8); Non-African American GFR(CKD) 43.9 (60.0-200.0); Potassium 4.2 mmol/L (3.5-5.5)
--- NOTE | 2020-10-02 12:22 | XR ---
EXAMINATION TYPE: XR chest 1V portable DATE OF EXAM: 10/02/2020 Comparison: 09/29/2020 Clinical History: 75-year-old female SOB Findings: Heart normal size. Aorta and pulmonary vasculature are within normal limits. Some strandy atelectasis in the lower lungs. Mild interstitial prominence is unchanged. Mild hyperinflation. Impression: COPD without acute cardiopulmonary process.
--- NOTE | 2020-10-02 13:12 | P.PN ---
Subjective Progress Note Date: 10/01/20 Principal diagnosis: Acute hypoxic respiratory failure, COPD exacerbation, hypertension, generalized anxiety, chronic tobacco use. This is a 75-year-old female patient of Dr. Iglesias with a past medical history of advanced COPD on supplemental home oxygen, tobacco use, and hy pertension. Patient presented to the emergency room with progressive shortness of breath. Patient was states she was seen by urgent care about 3-4 day ago and treated for bronchitis, she was placed on azithromycin and a prednisone taper. Patient reports over the last few days she has progressively been getting more short of breath and having a harder time breathing. Patient eventually called EM S where she was found to be in severe respiratory distress. Patient was placed on BiPAP and eventually breathing did stabalize. Chest x-ray showed small bilateral pleural effusions and underlying COPD. Pulmonary has been consulted. She was started on Duonebs, Pulmicort, Formoterol and Solumedrol. Her COVID testing was negative. 09/30: Patient evaluated this morning, resting in bed comfortably, doing a nebulizer treatment, she is in no acute distress. Patient was able to wean off of the BiPAP and is currently on 3 L nasal oxygen saturation 93%. She continues with the DuoNeb's along with Pulmicort, doxycycline, Perforomist, and Solu- Medrol 60 mg IV every 6 hours. Vital signs are stable, she is afebrile 97.8, heart rate 94, respiratory of 16, blood pressure 120/81. Blood cultures show no growth to date. Patient is improving, but not ready for discharge, will continue with current treatment plan. Pulmonary following. 10/01: Patient is feeling slightly better decreased sodium Medrol to 40 mg every 8 hours we'll continue current management still on doxycycline Pulmicort and Perforomist. Still require O2 require BiPAP between. Patient is doing well will readjust medication continue and advance physical therapy patient has enough help at home she believe she was to go home as soon as she is ready to Objective - Vital Signs Vital signs: Vital Signs Temp 98.1 F 10/01/20 14:00 Pulse 82 10/01/20 15:28 Resp 18 10/01/20 14:00 BP 122/71 10/01/20 14:00 Pulse Ox 95 10/01/20 14:00 Intake & Output 12/10/01/20 10/01/20 18:59 06:59 18:59 Output Total 700 350 Balance -700 -350 Output: Urine 700 350 Other: # Voids 1,100 - Exam Review of systems: CONSTITUTIONAL: Well-developed no acute respiratory distress. EYES: No icterus sclerae, no conjunctivitis. EARS, NOSE, MOUTH, THROAT, and FACE: No sore throat, lymphadenopathy, carotid bruits or deformity. RESPIRATORY: Positive mild dyspnea and shortness of breath CARDIOVASCULAR: No CP, Palpitation, PND, Orthopnea, or angina. GASTROINTESTINAL: No Abd pain, Nausea or vomiting, no Diarrhea or constipation, No GI Bleed, no distention or masses. GENITOURINARY: Negative for Hematuria or UTI, no kidney stones. INTEGUMENT/BREAST: Negative for any muscular injury with mild osteoarthritis.. HEMATOLOGIC/LYMPHATIC: Negative for bleed or purpura. MUSCULOSKELTAL: Negative for Myalgia or arthralgia. NEURLOGICAL: No LOC, Sz or syncope, blurred vision dizziness or abnormality.. BEHAVIORAL/PSYCH: Negative. ENDOCRINE: Negative. Physical examination: - Vital Signs Vital signs: Vital Signs Temp 97.8 F 09/30/20 08:00 Pulse 96 09/30/20 08:16 Resp 16 09/30/20 08:00 BP 120/81 09/30/20 08:00 Pulse Ox 93 L 09/30/20 08:00 Intake & Output 09/29/20 09/30/20 09/30/20 18:59 06:59 18:59 Intake Total 200 Balance 200 Weight 69.5 kg Intake: Intake, IV Titration 200 Amount Sodium Chloride 0.9% 1, 200 000 ml @ 75 mls/hr IV . [id number] [facility] Rx#:[id number] - Exam - Constitutional General appearance: cooperative, no acute distress - EENT Eyes: EOMI, PERRLA, normal appearance ENT: hearing grossly normal, no normal oropharynx, no pharyngeal erythema, no thrush - Neck Neck: no lymphadenopathy, normal ROM - Respiratory Respiratory: bilateral: diminished, diffuse rhonchi, slight expiratory wheeze - Cardiovascular Rhythm: regular Heart sounds: normal: S1, S2 - Gastrointestinal General gastrointestinal: no distended, normal bowel sounds, no organomegaly, soft, no tenderness - Neurologic Neurologic: CNII-XII intact - Musculoskeletal Musculoskeletal: generalized weakness, strength equal bilaterally - Psychiatric Psychiatric: A&O x's 3, appropriate affect, intact judgment & insight - Labs CBC & Chem 7: 10/02/20 06:15 10/02/20 06:15 Labs: Abnormal Lab Results - Last 24 Hours (Table) 10/01/20 10/01/20 Range/Units 05:47 05:47 WBC 11.9 H (3.8-10.6) k/uL Est GFR (CKD-EPI)AfAm 50.8 L (60.0-200.0) Est GFR (CKD-EPI)NonAf 43.9 L (60.0-200.0) BUN/Creatinine Ratio 20.83 H (12.00-20.00) Ratio Glucose 151 H (70-110) mg/dL Microbiology - Last 24 Hours (Table) 09/29/20 06:29 Blood Culture - Preliminary Blood No Growth after 48 hours Assessment and Plan Assessment: 1. Acute hypoxic respiratory failure secondary to COPD exacerbation and bronchitis. Continue steroid, continue O2 and continue BiPAP if needed. 2. Acute COPD exacerbation with severe bronchitis. Continue patient on DuoNeb along with Pulmicort still on Solu-Medrol 40 mg every 8 hours Singulair. 3 severe bronchitis: Continue patient on doxycycline 100 mg twice a day with complete total of 10 days. 4. Hypertension. Benicar 40/25 mg daily was switched to Cozaar 150 mg a day 5. Generalized anxiety disorder. hold Xanax 6. Chronic tobacco use. Discussed smoking cessation, Nicotine patch ordered. 7 DVT prophylaxis. Lovenox 40 mg subcutaneous. 8 GI Prophylaxis. Pantoprazole Discharge planning: Possible discharge home in the next 48 hours.
--- NOTE | 2020-10-02 13:13 | P.PN ---
Subjective Progress Note Date: 10/02/20 Principal diagnosis: Acute hypoxic respiratory failure, COPD exacerbation, hypertension, generalized anxiety, chronic tobacco use. This is a 75-year-old female patient of Dr. Iglesias with a past medical history of advanced COPD on supplemental home oxygen, tobacco use, and hy pertension. Patient presented to the emergency room with progressive shortness of breath. Patient was states she was seen by urgent care about 3-4 day ago and treated for bronchitis, she was placed on azithromycin and a prednisone taper. Patient reports over the last few days she has progressively been getting more short of breath and having a harder time breathing. Patient eventually called EM S where she was found to be in severe respiratory distress. Patient was placed on BiPAP and eventually breathing did stabalize. Chest x-ray showed small bilateral pleural effusions and underlying COPD. Pulmonary has been consulted. She was started on Duonebs, Pulmicort, Formoterol and Solumedrol. Her COVID testing was negative. 09/30: Patient evaluated this morning, resting in bed comfortably, doing a nebulizer treatment, she is in no acute distress. Patient was able to wean off of the BiPAP and is currently on 3 L nasal oxygen saturation 93%. She continues with the DuoNeb's along with Pulmicort, doxycycline, Perforomist, and Solu- Medrol 60 mg IV every 6 hours. Vital signs are stable, she is afebrile 97.8, heart rate 94, respiratory of 16, blood pressure 120/81. Blood cultures show no growth to date. Patient is improving, but not ready for discharge, will continue with current treatment plan. Pulmonary following. 10/01: Patient is feeling slightly better decreased sodium Medrol to 40 mg every 8 hours we'll continue current management still on doxycycline Pulmicort and Perforomist. Still require O2 require BiPAP between. Patient is doing well will readjust medication continue and advance physical therapy patient has enough help at home she believe she was to go home as soon as she is ready. 10/02: Patient is doing much better sodium Medrol was adjusted all a muscle meds are oral and done by nebulizer patient most likely will be able to go home tomorrow Objective - Vital Signs Vital signs: Vital Signs Temp 97.9 F 10/02/20 07:20 Pulse 76 10/02/20 11:32 Resp 17 10/02/20 07:20 BP 146/83 10/02/20 07:20 Pulse Ox 96 10/02/20 07:20 Intake & Output 10/01/20 10/02/20 10/02/20 18:59 06:59 18:59 Output Total 650 Balance -650 Output: Urine 650 Other: # Voids 1 - Exam Review of systems: CONSTITUTIONAL: Well-developed no acute respiratory distress. EYES: No icterus sclerae, no conjunctivitis. EARS, NOSE, MOUTH, THROAT, and FACE: No sore throat, lymphadenopathy, carotid bruits or deformity. RESPIRATORY: Positive mild dyspnea and shortness of breath CARDIOVASCULAR: No CP, Palpitation, PND, Orthopnea, or angina. GASTROINTESTINAL: No Abd pain, Nausea or vomiting, no Diarrhea or constipation, No GI Bleed, no distention or masses. GENITOURINARY: Negative for Hematuria or UTI, no kidney stones. INTEGUMENT/BREAST: Negative for any muscular injury with mild osteoarthritis.. HEMATOLOGIC/LYMPHATIC: Negative for bleed or purpura. MUSCULOSKELTAL: Negative for Myalgia or arthralgia. NEURLOGICAL: No LOC, Sz or syncope, blurred vision dizziness or abnormality.. BEHAVIORAL/PSYCH: Negative. ENDOCRINE: Negative. Physical examination: - Vital Signs Vital signs: Vital Signs Temp 97.8 F 09/30/20 08:00 Pulse 96 09/30/20 08:16 Resp 16 09/30/20 08:00 BP 120/81 09/30/20 08:00 Pulse Ox 93 L 09/30/20 08:00 Intake & Output 09/29/20 09/30/20 09/30/20 18:59 06:59 18:59 Intake Total 200 Balance 200 Weight 69.5 kg Intake: Intake, IV Titration 200 Amount Sodium Chloride 0.9% 1, 200 000 ml @ 75 mls/hr IV . [id number] [facility] Rx#:[id number] - Exam - Constitutional General appearance: cooperative, no acute distress - EENT Eyes: EOMI, PERRLA, normal appearance ENT: hearing grossly normal, no normal oropharynx, no pharyngeal erythema, no thrush - Neck Neck: no lymphadenopathy, normal ROM - Respiratory Respiratory: bilateral: diminished, diffuse rhonchi, slight expiratory wheeze - Cardiovascular Rhythm: regular Heart sounds: normal: S1, S2 - Gastrointestinal General gastrointestinal: no distended, normal bowel sounds, no organomegaly, soft, no tenderness - Neurologic Neurologic: CNII-XII intact - Musculoskeletal Musculoskeletal: generalized weakness, strength equal bilaterally - Psychiatric Psychiatric: A&O x's 3, appropriate affect, intact judgment & insight - Labs CBC & Chem 7: 10/02/20 06:15 10/02/20 06:15 Labs: Abnormal Lab Results - Last 24 Hours (Table) 10/02/20 10/02/20 Range/Units 06:15 06:15 WBC 10.9 H (3.8-10.6) k/uL Carbon Dioxide 32.5 H (21.6-31.8) mmol/L Est GFR (CKD-EPI)AfAm 50.8 L (60.0-200.0) Est GFR (CKD-EPI)NonAf 43.9 L (60.0-200.0) BUN/Creatinine Ratio 20.83 H (12.00-20.00) Ratio Glucose 129 H (70-110) mg/dL Microbiology - Last 24 Hours (Table) 09/29/20 06:29 Blood Culture - Preliminary Blood No Growth after 72 hours Assessment and Plan Assessment: 1. Acute hypoxic respiratory failure secondary to COPD exacerbation and bronchitis. Continue steroid, continue O2 and continue BiPAP if needed. 2. Acute COPD exacerbation with severe bronchitis. Continue patient on DuoNeb along with Pulmicort still on Solu-Medrol 40 mg every 8 hours Singulair. 3 severe bronchitis: Continue patient on doxycycline 100 mg twice a day with complete total of 10 days. 4. Hypertension. Benicar 40/25 mg daily was switched to Cozaar 150 mg a day 5. Generalized anxiety disorder. hold Xanax 6. Chronic tobacco use. Discussed smoking cessation, Nicotine patch ordered. 7 DVT prophylaxis. Lovenox 40 mg subcutaneous. 8 GI Prophylaxis. Pantoprazole Discharge planning: Possible discharge home tomorrow.
--- NOTE | 2020-10-02 13:24 | P.PN ---
Subjective Progress Note Date: 10/02/20 Principal diagnosis: Acute exacerbation of chronic obstructive pulmonary disease The patient is seen today 10/01/2020 in follow-up on the regular medical floor. She was admitted with an acute exacerbation of chronic obstructive pulmonary disease. Tested negative for CoVID 19 pneumonia. She is currently up in a chair at the bedside. Awake and alert in no acute distress. Maintaining O2 saturation in the low 90s on 3 L/m per nasal cannula. White count 11.9. Hemoglobin 12.7. Sodium 138. Potassium 4.3. Creatinine 1.2. Continued on bronchodilators, Vibramycin, IV steroids. NicoDerm patches in place. The patient is seen today 10/02/2020 in follow-up on the regular medical floor. She is currently sitting up in a chair at the bedside. Awake and alert in no acute distress. She did utilize the BiPAP last evening. She is currently maintaining good O2 saturations in the 90s on 3 L/m per nasal cannula. Blood culture revealed no growth. Count 10.9. Hemoglobin 13.7. Sodium 139. Potassium 4.2. Creatinine 1.2. Continued on DuoNeb inhalations, Pulmicort and Perforomist inhalations, antibiotics in the form of doxycycline. Lovenox for DVT prophylaxis. Remains on IV Medrol. NicoDerm patch in place. Objective - Vital Signs Vital signs: Vital Signs Temp 97.9 F 10/02/20 07:20 Pulse 76 10/02/20 11:32 Resp 17 10/02/20 07:20 BP 146/83 10/02/20 07:20 Pulse Ox 96 10/02/20 07:20 Intake & Output 10/01/20 10/02/20 10/02/20 18:59 06:59 18:59 Output Total 650 Balance -650 Output: Urine 650 Other: # Voids 1 - Exam GENERAL EXAM: Alert, active, pleasant 75-year-old female patient, on 3 liters per minute per nasal cannula, comfortable in no apparent distress. HEAD: Normocephalic. EYES: Normal reaction of pupils, equal size. NOSE: Clear with pink turbinates. THROAT: No erythema or exudates. NECK: No masses, no JVD. CHEST: No chest wall deformity. LUNGS: Equal air entry with end expiratory wheeze, diminished CVS: S1 and S2 normal with no audible murmur, regular rhythm. ABDOMEN: No hepatosplenomegaly, normal bowel sounds, no guarding or rigidity. SPINE: No scoliosis or deformity SKIN: No rashes CENTRAL NERVOUS SYSTEM: No focal deficits, tone is normal in all 4 extremities. EXTREMITIES: There is no peripheral edema. No clubbing, no cyanosis. Peripheral pulses are intact. - Labs CBC & Chem 7: 10/02/20 06:15 10/02/20 06:15 Labs: Abnormal Lab Results - Last 24 Hours (Table) 10/02/20 10/02/20 Range/Units 06:15 06:15 WBC 10.9 H (3.8-10.6) k/uL Carbon Dioxide 32.5 H (21.6-31.8) mmol/L Est GFR (CKD-EPI)AfAm 50.8 L (60.0-200.0) Est GFR (CKD-EPI)NonAf 43.9 L (60.0-200.0) BUN/Creatinine Ratio 20.83 H (12.00-20.00) Ratio Glucose 129 H (70-110) mg/dL Microbiology - Last 24 Hours (Table) 09/29/20 06:29 Blood Culture - Preliminary Blood No Growth after 72 hours Assessment and Plan Assessment: 1 Acute exacerbation of chronic obstructive pulmonary disease. Patient ruled out for COVID 19 2 Chronic hypoxemic respiratory failure related to advanced COPD 3 Ongoing and chronic tobacco use 4 History of hypertension Plan: The patient was seen and evaluated by Dr. Pierre She is stable for discharge from the pulmonary standpoint Complete a prednisone taper Complete course of antibiotics Continue home pulmonary medications Again educated regarding the importance of complete smoking cessation Follow-up in the office in 1-2 weeks' time I, the cosigning physician, performed a history & physical examination of the patient. Lungs sounds with bilateral end expiratory wheeze, diminished. Maintaining good O2 saturations in the 90s on 3 L/m per nasal cannula. I discus sed the assessment and plan of care with my nurse practitioner, Stephanie Hanks. I attest to the above note as dictated by her.
[2020-10-03 07:00] LABS: HCT 45.6 % (34.0-46.0); MCH 31.1 pg (25.0-35.0); MCHC 32.9 g/dL (31.0-37.0); MCV 94.4 fL (80.0-100.0); Mean Platelet Volume 7.4; Platelet Count 385 k/uL (150-450); RBC 4.83 m/uL (3.80-5.40); RDW 13.3 % (11.5-15.5); WBC 14.1 k/uL (3.8-10.6)
[2020-10-03] MEDS: IPRATROPIUM-ALBUTEROL 3 ML NEB INHALATION SCH ×2 (07:16→12:37)
[2020-10-03] MEDS: FORMOTEROL FUMARATE 20 MCG/2 ML NEBU INHALATION SCH (07:16)
[2020-10-03] MEDS: BUDESONIDE 1 MG/2 ML NEBU INHALATION SCH (07:16)
[2020-10-03] MEDS: hydroCHLOROthiazide 25 MG TAB PO SCH (07:58)
[2020-10-03] MEDS: PANTOPRAZOLE 40 MG TABLET PO SCH (07:58)
[2020-10-03] MEDS: MONTELUKAST 10 MG TAB PO SCH (07:58)
[2020-10-03] MEDS: LOSARTAN 50 MG TAB PO SCH (07:58)
[2020-10-03] MEDS: DOXYCYCLINE 100 MG CAP PO SCH (07:59)
[2020-10-03] MEDS: NICOTINE 14MG/24HR PATCH TRANSDERM SCH (07:59)
[2020-10-03] MEDS: ENOXAPARIN 40 MG/0.4 ML SYRINGE SQ SCH (07:59)
[2020-10-03 08:30] VITALS: BP 164/82; PULSE 96; RESP 18; TEMP 98.2
[2020-10-03] MEDS ORDERED: predniSONE 20 MG TAB PO SCH (09:00)
[2020-10-03 09:43] LABS: African American GFR (CKD) 46.1 (60.0-200.0); Albumin/Globulin Ratio 2.22 (1.60-3.17); Anion Gap 6.9 mmol/L (4.00-12.00); BUN/Creat Ratio 19.23 Ratio (12.00-20.00); Calcium 9.4 mg/dL (8.7-10.3); Carbon Dioxide 35.1 mmol/L (21.6-31.8); Globulin 1.8 g/dL (1.6-3.3); Non-African American GFR(CKD) 39.8 (60.0-200.0); Potassium 3.8 mmol/L (3.5-5.5); Total Bilirubin 1.1 mg/dL (0.3-1.2); Total Protein 5.8 g/dL (6.2-8.2)
--- NOTE | 2020-10-03 13:02 | P.PN ---
Subjective Progress Note Date: 10/03/20 Principal diagnosis: Acute exacerbation of chronic obstructive pulmonary disease The patient is seen today 10/01/2020 in follow-up on the regular medical floor. She was admitted with an acute exacerbation of chronic obstructive pulmonary disease. Tested negative for CoVID 19 pneumonia. She is currently up in a chair at the bedside. Awake and alert in no acute distress. Maintaining O2 saturation in the low 90s on 3 L/m per nasal cannula. White count 11.9. Hemoglobin 12.7. Sodium 138. Potassium 4.3. Creatinine 1.2. Continued on bronchodilators, Vibramycin, IV steroids. NicoDerm patches in place. The patient is seen today 10/02/2020 in follow-up on the regular medical floor. She is currently sitting up in a chair at the bedside. Awake and alert in no acute distress. She did utilize the BiPAP last evening. She is currently maintaining good O2 saturations in the 90s on 3 L/m per nasal cannula. Blood culture revealed no growth. Count 10.9. Hemoglobin 13.7. Sodium 139. Potassium 4.2. Creatinine 1.2. Continued on DuoNeb inhalations, Pulmicort and Perforomist inhalations, antibiotics in the form of doxycycline. Lovenox for DVT prophylaxis. Remains on IV Medrol. NicoDerm patch in place. The patient is seen today 10/03/2020 in follow-up on the regular medical floor. She is currently sitting up in a chair at the bedside. Awake and alert in no acute distress. He is maintaining O2 saturations in the low 90s on 3 L/m per nasal cannula. She's afebrile. Still dyspneic with minimal exertion. White count 14.1. Hemoglobin 15.0. Sodium 139. Potassium 3.8. Creatinine 1.3. She is maintained on DuoNeb inhalations, Pulmicort and Perforomist inhalations, antibiotics in the form of doxycycline. Lovenox for DVT prophylaxis. Remains on prednisone taper. NicoDerm patch in place. Objective - Vital Signs Vital signs: Vital Signs Temp 98.2 F 10/03/20 07:47 Pulse 96 10/03/20 07:47 Resp 18 10/03/20 07:47 BP 164/82 10/03/20 07:47 Pulse Ox 90 L 10/03/20 07:47 Intake & Output 1210/03/20 10/03/20 18:59 06:59 18:59 Other: # Voids 1 1 - Exam GENERAL EXAM: Alert, active, pleasant 75-year-old female patient, on 3 liters per minute per nasal cannula, comfortable in no apparent distress. HEAD: Normocephalic. EYES: Normal reaction of pupils, equal size. NOSE: Clear with pink turbinates. THROAT: No erythema or exudates. NECK: No masses, no JVD. CHEST: No chest wall deformity. LUNGS: Equal air entry with end expiratory wheeze, diminished CVS: S1 and S2 normal with no audible murmur, regular rhythm. ABDOMEN: No hepatosplenomegaly, normal bowel sounds, no guarding or rigidity. SPINE: No scoliosis or deformity SKIN: No rashes CENTRAL NERVOUS SYSTEM: No focal deficits, tone is normal in all 4 extremities. EXTREMITIES: There is no peripheral edema. No clubbing, no cyanosis. Peripheral pulses are intact. - Labs CBC & Chem 7: 10/03/20 06:22 10/03/20 06:22 Labs: Abnormal Lab Results - Last 24 Hours (Table) 10/03/20 10/03/20 Range/Units 06:22 06:22 WBC 14.1 H (3.8-10.6) k/uL Carbon Dioxide 35.1 H (21.6-31.8) mmol/L Est GFR (CKD-EPI)AfAm 46.1 L (60.0-200.0) Est GFR (CKD-EPI)NonAf 39.8 L (60.0-200.0) Total Protein 5.8 L (6.2-8.2) g/dL Microbiology - Last 24 Hours (Table) 09/29/20 06:29 Blood Culture - Preliminary Blood No Growth after 96 hours Assessment and Plan Assessment: 1 Acute exacerbation of chronic obstructive pulmonary disease. Patient ruled out for COVID 19 2 Chronic hypoxemic respiratory failure related to advanced COPD 3 Ongoing and chronic tobacco use 4 History of hypertension Plan: The patient was seen and evaluated by Dr. Peirre She is stable for discharge from the pulmonary standpoint Complete a prednisone taper Complete a course of antibiotics Continue home pulmonary medications Educated regarding the importance of complete smoking cessation NicoDerm patch in place Follow-up in the office in 1-2 weeks' time I, the cosigning physician, performed a history & physical examination of the patient. Lungs sounds with bilateral end expiratory wheeze, diminished. Maintaining good O2 saturations in the 90s on 3 L/m per nasal cannula. I d iscussed the assessment and plan of care with my nurse practitioner, Stephanie Hanks. I attest to the above note as dictated by her.
--- NOTE | 2020-10-03 13:17 | P.DS ---
Providers Date of admission: 09/29/20 06:57 Attending physician: Kojo Cornejo Consults: 09/29/20 06:57 Consult Physician Routine Consulting Provider: Homar Prabhakar Consult Reason/Comments: copd Do you want consulting provider notified?: Yes Primary care physician: Ministerio Iglesias [facility] Course: Principal diagnosis: Acute hypoxic respiratory failure, COPD exacerbation, hypertension, generalized anxiety, chronic tobacco use. This is a 75-year-old female patient of Dr. Iglesias with a past medical history of advanced COPD on supplemental home oxygen, tobacco use, and hypertension. Patient presented to the emergency room with progressive shortness of breath. Patient was states she was seen by urgent care about 3-4 day ago and treated for bronchitis, she was placed on azithromycin and a prednisone taper. Patient reports over the last few days she has progressively been getting more short of breath and having a harder time breathing. Patient eventually called EMS where she was found to be in severe respiratory distress. Patient was placed on BiPAP and eventually breathing did stabalize. Chest x-ray showed small bilateral pleural effusions and underlying COPD. Pulmonary has been consulted. She was started on Duonebs, Pulmicort, Formoterol and Solumedrol. Her COVID testing was negative. 09/30: Patient evaluated this morning, resting in bed comfortably, doing a nebulizer treatment, she is in no acute distress. Patient was able to wean off of the BiPAP and is currently on 3 L nasal oxygen saturation 93%. She continues with the DuoNeb's along with Pulmicort, doxycycline, Perforomist, and Solu- Medrol 60 mg IV every 6 hours. Vital signs are stable, she is afebrile 97.8, heart rate 94, respiratory of 16, blood pressure 120/81. Blood cultures show no growth to date. Patient is improving, but not ready for discharge, will continue with current treatment plan. Pulmonary following. 10/01: Patient is feeling slightly better decreased sodium Medrol to 40 mg every 8 hours we'll continue current management still on doxycycline Pulmicort and Perforomist. Still require O2 require BiPAP between. Patient is doing well will readjust medication continue and advance physical therapy patient has enough help at home she believe she was to go home as soon as she is ready. 10/02: Patient is doing much better sodium Medrol was adjusted all a muscle meds are oral and done by nebulizer patient most likely will be able to go home tomorrow Objective - Vital Signs Vital signs: Vital Signs Temp 97.9 F 10/02/20 07:20 Pulse 76 10/02/20 11:32 Resp 17 10/02/20 07:20 BP 146/83 10/02/20 07:20 Pulse Ox 96 10/02/20 07:20 Intake & Output 10/01/20 10/02/20 10/02/20 18:59 06:59 18:59 Output Total 650 Balance -650 Output: Urine 650 Other: # Voids 1 - Exam Review of systems: CONSTITUTIONAL: Well-developed no acute respiratory distress. EYES: No icterus sclerae, no conjunctivitis. EARS, NOSE, MOUTH, THROAT, and FACE: No sore throat, lymphadenopathy, carotid bruits or deformity. RESPIRATORY: Positive mild dyspnea and shortness of breath CARDIOVASCULAR: No CP, Palpitation, PND, Orthopnea, or angina. GASTROINTESTINAL: No Abd pain, Nausea or vomiting, no Diarrhea or constipation, No GI Bleed, no distention or masses. GENITOURINARY: Negative for Hematuria or UTI, no kidney stones. INTEGUMENT/BREAST: Negative for any muscular injury with mild osteoarthritis.. HEMATOLOGIC/LYMPHATIC: Negative for bleed or purpura. MUSCULOSKELTAL: Negative for Myalgia or arthralgia. NEURLOGICAL: No LOC, Sz or syncope, blurred vision dizziness or abnormality.. BEHAVIORAL/PSYCH: Negative. ENDOCRINE: Negative. Physical examination: - Vital Signs Vital signs: Vital Signs Temp 97.8 F 09/30/20 08:00 Pulse 96 09/30/20 08:16 Resp 16 09/30/20 08:00 BP 120/81 09/30/20 08:00 Pulse Ox 93 L 09/30/20 08:00 Intake & Output 09/29/20 09/30/20 09/30/20 18:59 06:59 18:59 Intake Total 200 Balance 200 Weight 69.5 kg Intake: Intake, IV Titration 200 Amount Sodium Chloride 0.9% 1, 200 000 ml @ 75 mls/hr IV . [id number] STA Rx#:[id number] - Exam - Constitutional General appearance: cooperative, no acute distress - EENT Eyes: EOMI, PERRLA, normal appearance ENT: hearing grossly normal, no normal oropharynx, no pharyngeal erythema, no thrush - Neck Neck: no lymphadenopathy, normal ROM - Respiratory Respiratory: bilateral: diminished, diffuse rhonchi, slight expiratory wheeze - Cardiovascular Rhythm: regular Heart sounds: normal: S1, S2 - Gastrointestinal General gastrointestinal: no distended, normal bowel sounds, no organomegaly, soft, no tenderness - Neurologic Neurologic: CNII-XII intact - Musculoskeletal Musculoskeletal: generalized weakness, strength equal bilaterally - Psychiatric Psychiatric: A&O x's 3, appropriate affect, intact judgment & insight - Labs CBC & Chem 7: 10/02/20 06:15 10/02/20 06:15 Labs: Abnormal Lab Results - Last 24 Hours (Table) 10/02/20 10/02/20 Range/Units 06:15 06:15 WBC 10.9 H (3.8-10.6) k/uL Carbon Dioxide 32.5 H (21.6-31.8) mmol/L Est GFR (CKD-EPI)AfAm 50.8 L (60.0-200.0) Est GFR (CKD-EPI)NonAf 43.9 L (60.0-200.0) BUN/Creatinine Ratio 20.83 H (12.00-20.00) Ratio Glucose 129 H (70-110) mg/dL Microbiology - Last 24 Hours (Table) 09/29/20 06:29 Blood Culture - Preliminary Blood No Growth after 72 hours Assessment and Plan Assessment: 1. Acute hypoxic respiratory failure secondary to COPD exacerbation and bronchitis. Continue steroid, continue O2 and continue BiPAP if needed. 2. Acute COPD exacerbation with severe bronchitis. Continue patient on DuoNeb along with Pulmicort still on Solu-Medrol 40 mg every 8 hours Singulair. 3 severe bronchitis: Continue patient on doxycycline 100 mg twice a day with complete total of 10 days. 4. Hypertension. Benicar 40/25 mg daily was switched to Cozaar 150 mg a day 5. Generalized anxiety disorder. hold Xanax 6. Chronic tobacco use. Discussed smoking cessation, Nicotine patch ordered. 7 DVT prophylaxis. Lovenox 40 mg subcutaneous. 8 GI Prophylaxis. Pantoprazole Hospital course: Patient on feeding demand is down to one half to treat her only with pulse ox running over 94 percentile, steroid was changed to 40 mg of prednisone, patient is still on oral acyclovir and. Patient is doing well and she had her nebulizer and all equipment at home. She'll be discharged home today to follow-up with her primary care and pulmonary in the next few days. Patient Condition at Discharge: Serious Plan - Discharge Summary Discharge Rx Participant: No New Discharge Prescriptions: New predniSONE [Deltasone] 10 mg PO DAILY #40 tab Nicotine 14Mg/24Hr Patch [Habitrol] 1 patch TRANSDERM DAILY #30 patch Doxycycline [Vibramycin] 100 mg PO BID #20 cap Continue Ipratropium-Albuterol Nebulize [Duoneb 0.5 mg-3 mg/3 ml Soln] 3 ml INHALATION RT-Q6H diphenhydrAMINE [Benadryl] 25 mg PO QID PRN PRN Reason: Allergy Symptoms Olmesartan/Hydrochlorothiazide [Benicar Hct 40-25 mg Tablet] 1 tab PO DAILY Ibuprofen [Motrin Ib] 200 mg PO Q8H PRN PRN Reason: Pain Or Fever > 100.5 predniSONE 50 mg PO DAILY Montelukast [Singulair] 10 mg PO DAILY ALPRAZolam [Xanax] 0.5 mg PO TID PRN PRN Reason: Anxiety Budesonide [Pulmicort] 0.5 mg INHALATION RT-BID Discontinued Azithromycin [Zithromax Z-pack (6 tabs)] See Taper PO DIRECTED Discharge Medication List ALPRAZolam [Xanax] 0.5 mg PO TID PRN 09/29/20 [History] Budesonide [Pulmicort] 0.5 mg INHALATION RT-BID 09/29/20 [History] Ibuprofen [Motrin Ib] 200 mg PO Q8H PRN 09/29/20 [History] Ipratropium-Albuterol Nebulize [Duoneb 0.5 mg-3 mg/3 ml Soln] 3 ml INHALATION RT-Q6H 09/29/20 [History] Montelukast [Singulair] 10 mg PO DAILY 09/29/20 [History] Olmesartan/Hydrochlorothiazide [Benicar Hct 40-25 mg Tablet] 1 tab PO DAILY 09/29/20 [History] diphenhydrAMINE [Benadryl] 25 mg PO QID PRN 09/29/20 [History] predniSONE 50 mg PO DAILY 09/29/20 [History] Doxycycline [Vibramycin] 100 mg PO BID #20 cap 10/03/20 [Rx] Nicotine 14Mg/24Hr Patch [Habitrol] 1 patch TRANSDERM DAILY #30 patch 10/03/20 [Rx] predniSONE [Deltasone] 10 mg PO DAILY #40 tab 10/03/20 [Rx] Follow up Appointment(s)/Referral(s): Ministerio Iglesias DO [Primary Care Provider] - 1-2 days (office closed. Please call Sunday to schedule appointment ) Homar Prabhakar MD [STAFF PHYSICIAN] - 10 Days (Please call office on Sunday to arrange appointment time as office currently closed) Patient Instructions/Handouts: COPD (Chronic Obstructive Pulmonary Disease) (DC) Discharge Disposition: HOME SELF-CARE
== END 2020-10-03 13:11 | disposition home or self-care (01) | DRG 190 ==
LOC: EC 05:42 → 3SCARD 06:57 → 4SSUR 12:05
PROVIDERS: ADMIT Internal Medicine Geriatric Medicine; ATTEND Internal Medicine Geriatric Medicine
PROC: 5A09557 Assistance with Respiratory Ventilation, Greater than 96 Consecutive Hours, Continuous Positive Airway Pressure (ICD-10-PCS; principal; 2020-09-29)
DX: J44.1 Chronic obstructive pulmonary disease with (acute) exacerbation (principal); J96.21 Acute and chronic respiratory failure with hypoxia; F32.9 Major depressive disorder, single episode, unspecified; F17.200 Nicotine dependence, unspecified, uncomplicated; F41.1 Generalized anxiety disorder; I11.0 Hypertensive heart disease with heart failure; Z20.828 Contact with and (suspected) exposure to other viral communicable diseases; I16.0 Hypertensive urgency; I50.9 Heart failure, unspecified; Z82.49 Family history of ischemic heart disease and other diseases of the circulatory system; Z79.899 Other long term (current) drug therapy; Z88.0 Allergy status to penicillin; Z88.5 Allergy status to narcotic agent; Z98.890 Other specified postprocedural states
CPT/HCPCS: 36415; 71045; 80048; 80053; 82550; 82553; 82803; 83605; 83615; 83735; 83880; 84132; 84484; 85025; 85027; 85610; 85730; 86140; 87040; 87635; 93005; 94640; 94644; 94660; 94760; 96361; 96374; 96375; 99291

== ENCOUNTER → 2021-11-28 | Outpatient (CLI) | payer MEDICARE | END | disposition home or self-care (01) | LOC: RADCTMAIN 13:24 | PROVIDERS: ATTEND Surgery | DX: I73.9 Peripheral vascular disease, unspecified (principal) | CPT/HCPCS: 82565; 84520 ==

== ENCOUNTER → 2021-12-23 | Outpatient (CLI) | payer MEDICARE ==
[~2021-12-23] MED LIST: SODIUM CHLORIDE 0.9% 1,000 ML IV NR; SODIUM CHLORIDE 0.9% 500 ML 500 ML in EMPTY BAG 1 BAG IV PRN
[2021-12-23 12:02] VITALS: BP 133/72; PULSE 114; RESP 18; TEMP 97.7
== END | disposition home or self-care (01) ==
LOC: PROCWHC3 11:45
PROVIDERS: ATTEND Surgery
DX: I73.9 Peripheral vascular disease, unspecified (principal)
CPT/HCPCS: 36415; 82565; 84520; 96361

== ENCOUNTER → 2021-12-23 | Outpatient (CLI) | payer MEDICARE ==
--- NOTE | 2021-12-25 20:00 | CT ---
EXAMINATION TYPE: CT angio abd aorta w/Runoff DATE OF EXAM: 12/23/2021 COMPARISON: None HISTORY: 76-year-old female I73.9, Peripheral vascular disease TECHNIQUE: Contiguous axial scanning of the abdomen and pelvis performed without and with IV Contrast , patient injected with 80 mL of Isovue 370. Postcontrast bilateral lower extent of the runoff was pe rformed. Coronal/sagittal reconstructions performed. 3-D constructions generated on a dedicated [employer] workstation. CT DLP: 1094.80 mGycm Automated exposure control for dose reduction was used. FINDINGS: Heart normal size without pericardial effusion. RCA coronary calcifications are noted. Some patchy ch anges at the right base likely areas of atelectasis. No pleural effusion. Suspect a tiny hernia. Noncontrast and arterial phase imaging of the liver, spleen, atrophic pancreas show no gross abnormal body. Small calculi measuring up to 5 mm layering in the nondistended gallbladder. Portal venous system is patent. No biliary ductal dilatation. Mild thickening of the bilateral adrenal glands without discrete nodularity. Bilateral renal cortical cysts are demonstrated, largest measuring 5.7 cm on the right and 4.5 cm on the left. Stomach shows mild diffuse gastric fold thickening which may be field representative of chronic gastritis. Clinically correlate. No dilated small bowel, free fluid, or free air. No mesenteric or retroperitoneal lymphadenopathy. Normal appendix. High riding cecum. Redundant right hemicolon. Moderate stool burden. Lower descendin g and sigmoid colonic diverticulosis. No pericolonic inflammatory change. Bladder urine distended. Uterus surgically absent. Both ovaries visualized. No abnormal fluid collect ion in the pelvis or pelvic lymphadenopathy. BONES: Moderate degenerative change right hip and mild at the left hip. Facet arthropathy lower lumbar spine . Baastrup's disease. VASCULATURE: Ectatic lower descending thoracic aorta up to 2.7 cm. Aorta at the thoracoabdominal junction ectatic at 2.7 cm. Prominent eccentric atherosclerotic plaque at the thoracoabdominal junction narrowing the lumen down to 1.6 cm. Additional moderate atherosclerotic change throughout the abdominal aorta and iliac arteries. Segments of fusiform ectasia of the abdominal aorta up to 2.8 cm. No ann aneurysm. RIGHT: Mild segmental atherosclerotic narrowing throughout the right common iliac artery and right external iliac artery. The common femoral arteries patent. Possible moderate or severe focal stenosis at the origin of the deep femoral artery, refer to axial i mages 108 and 109. Mild atherosclerotic changes at SFA. Above the level of the knee, beyond the adductor hiatus, prominent collateral vessels are noted with an occluded popliteal artery which reconstitutes just above the level of the knee joint line, occlusi on for a span of approximately 12 to 13 cm. The trifurcation arteries are diminutive but patent. Peroneal artery is seen to the distal third leg level. Posterior tibial artery is seen to just above the level of the ankle. There is runoff via the anterior tibial artery. Generalized soft tissue swelling of the distal right lower extremity. LEFT: Mild segmental atherosclerotic common and external iliac arteries. Also within the RES COUNSELOR. The profunda femoral artery is patent. The SFA shows mild diffuse narrowing and a single atherosclerotic calcification at the mid thigh prob ably contributing to a mild focal stenosis. There is distal SFA occlusion to the upper popliteal artery for a span of 6.6 cm. Reconstitution occu rs approximately 7.5 cm [id number] joint line. Segmental mild atherosclerotic narrowing throughout the popliteal artery. The trifurcation vessels are somewhat diminutive but patent. Both peroneal and posterior tibial arteries are seen to just above the level of the ankle. There is runoff via the anterior tibial artery. Generalized soft tissue swelling distal lower extremity. IMPRESSION: 1. ECTATIC DISTAL DESCENDING THORACIC AORTA UP TO 2.7 CM AND AREAS OF FUSIFORM ECTASIA OF THE ABDOMIN AL AORTA UP TO 2.8 CM. MODERATE ATHEROSCLEROTIC CHANGES WHICH EXTEND DOWN INTO THE ILIAC ARTERIES. UT LD SEGMENTAL STENOSES IN THE BILATERAL ILIAC ARTERIES. RIGHT: 2. POSSIBLE FOCAL MODERATE OR SEVERE STENOSIS AT THE TAKEOFF OF THE RIGHT PROFUNDA FEMORAL ARTERY. 3. DISTAL SFA AND UPPER POPLITEAL ARTERY OCCLUSION FOR A SPAN OF APPROXIMATELY 12.4 CM. OCCLUSION BEG INS JUST AFTER THE ADDUCTOR HIATUS WITH RECONSTITUTION OCCURRING JUST ABOVE THE KNEE JOINT LINE. 4. THE PERONEAL ARTERY IS SEEN TO THE DISTAL THIRD LEG LEVEL. POSTERIOR TIBIAL ARTERY SEEN TO JUST AB OVE THE ANKLE. 5. RUNOFF VIA THE ANTERIOR TIBIAL ARTERY. LEFT: 6. DISTAL SFA AND UPPER POPLITEAL ARTERY OCCLUSION FOR A SPAN OF APPROXIMATELY 6.6 CM. RECONSTITUTION OCCURS APPROXIMATELY 7.5 CM ABOVE THE KNEE JOINT LINE. 7. BOTH PERONEAL AND POSTERIOR TIBIAL ARTERIES ARE SEEN TO JUST ABOVE THE ANKLE. 8. RUNOFF VIA THE ANTERIOR TIBIAL ARTERY.
== END | disposition home or self-care (01) ==
LOC: RADCTMAIN 13:58
PROVIDERS: ATTEND Surgery
DX: I73.9 Peripheral vascular disease, unspecified (principal); I71.2 Thoracic aortic aneurysm, without rupture
CPT/HCPCS: 75635; Q9967

== ENCOUNTER 2023-06-22 22:42 | Inpatient (IN) | payer MEDICARE ==
[2023-06-22 23:08] LABS: Anisocytosis Moderate; Basophils % (A) 0 %; Eosinophils % (A) 0 %; HCT 23.9 % (34.0-46.0); Hypochromasia Marked; Lymphocytes # (A) 0.7 k/uL (1.0-4.8); Lymphocytes % (A) 6 %; MCH 16.7 pg (25.0-35.0); Mean Platelet Volume 6.8; Microcytosis Marked; Monocytes # (A) 0.6 k/uL (0-1.0); Monocytes % (A) 5 %; Neutrophils # (A) 9.6 k/uL (1.3-7.7); Neutrophils % (A) 87 %; Platelet Count 433 k/uL (150-450); Poikilocytosis Slight; RBC 3.85 m/uL (3.80-5.40); RDW 21.2 % (11.5-15.5)
[2023-06-22 23:13] LABS: HGB 6.4 gm/dL (11.4-16.0)
[2023-06-22 23:15] LABS: ALT 12 U/L (4-34); AST 20 U/L (14-36); African American GFR (CKD) 76 (>60 ml/min/1.73 sqM); Albumin 3.3 g/dL (3.5-5.0); Alkaline Phosphatase 109 U/L (38-126); Anion Gap 9 mmol/L; Blood Urea Nitrogen 11 mg/dL (7-17); Calcium 8.8 mg/dL (8.4-10.2); Carbon Dioxide 24 mmol/L (22-30); Chloride 99 mmol/L (98-107); Glucose 126 mg/dL (74-99); Lipase 34 U/L (23-300); Magnesium 1.8 mg/dL (1.6-2.3); Non-African American GFR(CKD) 66 (>60 ml/min/1.73 sqM); Potassium 4.3 mmol/L (3.5-5.1); Sodium 132 mmol/L (137-145); Total Bilirubin 0.9 mg/dL (0.2-1.3); Total Protein 6.4 g/dL (6.3-8.2)
[2023-06-22 23:19] LABS: Prothrombin Time 10.5 sec (9.0-12.0)
[2023-06-22 23:24] LABS: NT-Pro-B-Type Natriuretic Pept 1180 pg/mL
[2023-06-22] MEDS ORDERED: FUROSEMIDE 10 MG/ML 4 ML VIAL IV STA (23:28)
[2023-06-22 23:30] LABS: Partial Thromboplastin Time 18.6 sec (22.0-30.0)
--- NOTE | 2023-06-23 01:39 | XR ---
EXAM: XR Chest, 2 Views CLINICAL HISTORY: ITS.REASON XR Reason: CP TECHNIQUE: Frontal and lateral views of the chest. COMPARISON: No relevant prior studies available. FINDINGS: Lungs: Right middle lobe consolidation. Right basilar opacities. Emphysema and chronic obstructive pulmonary disease. Pleural space: Small right pleural effusion. No left pleural effusion. No pneumothorax. Heart: Unremarkable. Normal heart size. Bones/joints: No acute osseous findings. IMPRESSION: 1. Right middle lobe consolidation and right basilar opacities, potentially pneumonia in the appropriate clinical setting. 2. Small right pleural effusion. 3. Emphysema and chronic obstructive pulmonary disease.
[2023-06-23] MEDS ORDERED: AZITHROMYCIN 500 MG in SODIUM CHLORIDE 0.9% 250 ML IVPB STA (02:41)
[2023-06-23] MEDS ORDERED: cefTRIAXone IN SWFI 1,000 MG/10 ML SYRINGE IVP STA (02:41)
--- NOTE | 2023-06-23 02:42 | ED ---
General Adult HPI - General Chief complaint: Shortness of Breath Stated complaint: Shortness of breath Time Seen by Provider: 06/22/23 22:45 Source: patient Mode of arrival: EMS - History of Present Illness Initial comments: This is a 77-year-old female with a past medical history including COPD and hypertension presents emergency department via EMS for increasing shortness of breath. The patient did state that she was recently diagnosed with COVID-19 last week and stated that she had increasing shortness of breath today with productive cough. The patient also stated that she spiked a fever today at home. The patient did state that she had increased her oxygen requirements above her normal 2 L of O2. The patient did receive a breathing treatment by EMS during transport and on arrival did state that the symptoms were improved. The patient herself did state that she still continued to feel body aches as well as chills. The patient denied any other acute pain or complaints at this time. - Related Data Home Medications Medication Instructions Recorded Confirmed ALPRAZolam [Xanax] 0.5 mg PO TID PRN 09/29/20 12/23/21 Budesonide [Pulmicort] 0.5 mg INHALATION RT-BID 09/29/20 12/23/21 Ibuprofen [Motrin Ib] 200 mg PO Q8H PRN 09/29/20 12/23/21 Ipratropium-Albuterol Nebulize 3 ml INHALATION RT-Q6H 09/29/20 12/23/21 [Duoneb 0.5 mg-3 mg/3 ml Soln] Montelukast [Singulair] 10 mg PO DAILY 09/29/20 12/23/21 Olmesartan/Hydrochlorothiazide 1 tab PO DAILY 09/29/20 12/23/21 [Benicar Hct 40-25 mg Tablet] diphenhydrAMINE [Benadryl] 25 mg PO QID PRN 09/29/20 12/23/21 cilostazoL [Pletal] 100 mg PO BID 12/23/21 12/23/21 Allergies Allergy/AdvReac Type Severity Reaction Status Date / Time Penicillins Allergy Unknown Verified 06/22/23 22:47 hydrocodone AdvReac Nausea & Verified 06/22/23 22:47 Vomiting Review of Systems ROS Statement: Those systems with pertinent positive or pertinent negative responses have been documented in the HPI. ROS Other: All systems not noted in ROS Statement are negative. Past Medical History Past Medical History: COPD, Hypertension Additional Past Medical History / Comment(s): PVD. History of Any Multi-Drug Resistant Organisms: None Reported Past Surgical History: Bladder Surgery Additional Past Surgical History / Comment(s): carotid endarterectomy Past Anesthesia/Blood Transfusion Reactions: No Reported Reaction Past Psychological History: Anxiety, Depression Smoking Status: Current every day smoker - Past Family History Mother Family Medical History: Congestive Heart Failure (CHF) Father Family Medical History: Myocardial Infarction (MO) General Exam Limitations: no limitations General appearance: alert, in no apparent distress Head exam: Present: atraumatic, normocephalic, normal inspection Eye exam: Present: normal appearance, PERRL Pupils: Present: normal accommodation ENT exam: Present: normal exam, normal oropharynx, mucous membranes moist Neck exam: Present: normal inspection, full ROM Respiratory exam: Present: decreased breath sounds Cardiovascular Exam: Present: normal rhythm, tachycardia GI/Abdominal exam: Present: soft, normal bowel sounds Extremities exam: Present: normal inspection, full ROM Back exam: Present: normal inspection, full ROM Neurological exam: Present: alert, oriented X3, CN II-XII intact Psychiatric exam: Present: normal affect, normal mood Skin exam: Present: warm, dry Course Vital Signs 06/22/23 06/22/23 06/23/23 22:43 22:48 01:50 Temperature 98.7 F 98.7 F Pulse Rate 113 H 110 H Respiratory 22 22 20 Rate Blood Pressure 150/69 146/79 O2 Sat by Pulse 90 L 90 L Oximetry 06/23/23 06/23/23 06/23/23 02:06 02:26 03:00 Temperature 98.5 F 98.5 F Pulse Rate 115 H 106 H 108 H Respiratory 20 20 22 Rate Blood Pressure 134/66 154/58 156/73 O2 Sat by Pulse 91 L 91 L 91 L Oximetry 06/23/23 04:30 Temperature 98.4 F Pulse Rate 102 H Respiratory 22 Rate Blood Pressure 148/69 O2 Sat by Pulse 92 L Oximetry EKG Findings - EKG Comments: EKG Findings:: An EKG was obtained was interpreted by myself showing a rate of 108, AL interval of 108, QRS duration of 89 and QTC of 372. This EKG showed a sinus tachycardia with a short AL interval however there were no ST segment elevation or depression noted. Medical Decision Making - Medical Decision Making Was pt. sent in by a medical professional or institution (, PA, [employer], urgent care, hospital, or usp...) When possible be specific @ -No Did you speak to anyone other than the patient for history (EMS, parent, family, police, friend...)? What history was obtained from this source @ -No Did you review nursing and triage notes (agree or disagree)? Why? @ -I reviewed and agree with nursing and triage notes Were old charts reviewed (outside hosp., previous admission, EMS record, old EKG, old radiological studies, urgent care reports/EKG's, usp records)? Report findings @ -No old charts were reviewed Differential Diagnosis (chest pain, altered mental status, abdominal pain women, abdominal pain men, vaginal bleeding, weakness, fever, dyspnea, syncope, headache, dizziness, GI bleed, back pain, seizure, CVA, palpatations, mental health)? @ COPD exacerbation, CHF exacerbation, pneumonia, COVID-19 EKG interpreted by me (3pts min.). @ -As above X-rays interpreted by me (1pt min.). @ -Chest x-ray was obtained and was interpreted by myself showing right middle lobe consolidation and right basilar opacities. There was a small right pleural effusion. There is also COPD changes. CT interpreted by me (1pt min.). @ -CTA of the chest was obtained and was interpreted by myself showing No evidence of PE, patchy alveolar opacities in the right middle lobe this with pneumonia, deep 100 airspace disease the right lung base it could've present atelectasis, aspiration pneumonia. There was a small right pleural effusion. There was mild dependent pulmonary edema. There is emphysema. There was also chronic consolidation with volume loss lateral segment of the right middle lobe. There is a solid 10 mm pulmonary nodule in the left upper lobe. There was a subsequent 11 mm pulmonary nodule in the left lower lobe with an 8 mm solid component. U/S interpreted by me (1pt. min.). @ -None done What testing was considered but not performed or refused? (CT, X-rays, U/S, labs)? Why? @ -None What meds were considered but not given or refused? Why? @ -None Did you discuss the management of the patient with other professionals (professionals i.e. , PA, [employer], lab, RT, psych nurse, social problems specialist, corporation lawyer, teacher, mechanical engineering officer, dependency case manager)? Give summary @ -Yes, admitting physician was contacted regarding patient admission. Was smoking cessation discussed for >3mins.? @ -No Was critical care preformed (if so, how long)? @ -No Were there social determinants of health that impacted care today? How? (Homelessness, low income, unemployed, alcoholism, drug addiction, transportation, low edu. Level, literacy, decrease access to med. care, senior care, re hab)? @ -No Was there de-escalation of care discussed even if they declined (Discuss DNR or withdrawal of care, Hospice)? DNR status @ -No What co-morbidities impacted this encounter? (DM, HTN, Smoking, COPD, CAD, Cancer, CVA, ARF, Chemo, Hep., AIDS, mental health diagnosis, sleep apnea, morbid obesity)? @ -COPD, hypertension Was patient admitted / discharged? Hospital course, mention meds given and route, prescriptions, significant lab abnormalities, going to OR and other pertinent info. @ -The patient was seen and evaluated in emergency department. Physical exam, the patient was resting in bed without any acute distress. Initially, EMS did state that the patient's oxygen saturation was 70% on her home dose of oxygen and therefore was increased. However on arrival, the patient did receive a breathing treatment and her oxygen saturations was back to her baseline. Due to the patient's complaints, laboratory workup was obtained as was imaging. Labor atory workup did show a hemoglobin of 6.4 which is decreased from her baseline and therefore did require blood administration. The patient also had an elevated d-dimer and therefore a CTA of the chest was obtained to rule out a PE. The patient denied of any wheezing on exam therefore did not require breathing treatment at this time. The patient also had an elevated proBNP likely indicating a possible CHF exacerbation. Chest x-ray showed possible pneumonia and will be started on antibiotics at this time. The patient will be admitted for further workup and evaluation and was agreeable. Undiagnosed new problem with uncertain prognosis? @ -No Drug Therapy requiring intensive monitoring for toxicity (Heparin, Nitro, Insulin, Cardizem)? @ -No Were any procedures done? @ -No Diagnosis/symptom? @ -COPD exacerbation, pneumonia, CHF, blood loss anemia Acute, or Chronic, or Acute on Chronic? @ -Acute Uncomplicated (without systemic symptoms) or Complicated (systemic symptoms)? @ -Complicated Side effects of treatment? @ -No Exacerbation, Progression, or Severe Exacerbation? @ -No Poses a threat to life or bodily function? How? (Chest pain, [place], [place], pneumonia, PE, COPD, DKA, ARF, appy, cholecystitis, CVA, Diverticulitis, Homicidal, Suicidal, threat to staff... and all critical care pts) @ -Yes, continue exacerbation pneumonia can lead to sepsis and possible . - Lab Data Result diagrams: 06/22/23 22:47 06/22/23 22:47 Lab Results 06/22/23 06/22/23 06/22/23 Range/Units 22:47 22:47 22:47 WBC 11.0 H (3.8-10.6) k/uL RBC 3.85 (3.80-5.40) m/uL Hgb 6.4 L* (11.4-16.0) gm/dL Hct 23.9 L (34.0-46.0) % MCV 62.0 L (80.0-100.0) fL MCH 16.7 L (25.0-35.0) pg MCHC 27.0 L (31.0-37.0) g/dL RDW 21.2 H (11.5-15.5) % Plt Count 433 (150-450) k/uL MPV 6.8 Neutrophils % 87 % Lymphocytes % 6 % Monocytes % 5 % Eosinophils % 0 % Basophils % 0 % Neutrophils # 9.6 H (1.3-7.7) k/uL Lymphocytes # 0.7 L (1.0-4.8) k/uL Monocytes # 0.6 (0-1.0) k/uL Eosinophils # 0.0 (0-0.7) k/uL Basophils # 0.0 (0-0.2) k/uL Hypochromasia Marked Poikilocytosis Slight Anisocytosis Moderate Microcytosis Marked PT 10.5 (9.0-12.0) sec INR 1.0 (<1.2) APTT 18.6 L (22.0-30.0) sec D-Dimer 1.37 H (<0.60) mg/L FEU Sodium 132 L (137-145) mmol/L Potassium 4.3 (3.5-5.1) mmol/L Chloride 99 (98-107) mmol/L Carbon Dioxide 24 (22-30) mmol/L Anion Gap 9 mmol/L BUN 11 (7-17) mg/dL Creatinine 0.85 (0.52-1.04) mg/dL Est GFR (CKD-EPI)AfAm 76 (>60 ml/min/1.73 sqM) Est GFR (CKD-EPI)NonAf 66 (>60 ml/min/1.73 sqM) Glucose 126 H (74-99) mg/dL Plasma Lactic Acid Jc (0.7-2.0) mmol/L Calcium 8.8 (8.4-10.2) mg/dL Magnesium 1.8 (1.6-2.3) mg/dL Total Bilirubin 0.9 (0.2-1.3) mg/dL AST 20 (14-36) U/L ALT 12 (4-34) U/L Alkaline Phosphatase 109 (38-126) U/L Troponin I (0.000-0.034) ng/mL NT-Pro-B Natriuret Pep 1180 pg/mL Total Protein 6.4 (6.3-8.2) g/dL Albumin 3.3 L (3.5-5.0) g/dL Lipase 34 (23-300) U/L Coronavirus (PCR) (Not Detectd) Blood Type Blood Type Recheck Bld Type Recheck Status Antibody Screen Crossmatch Spec Expiration Date 06/22/23 06/23/23 06/23/23 Range/Units 22:47 00:00 03:13 WBC (3.8-10.6) k/uL RBC (3.80-5.40) m/uL Hgb (11.4-16.0) gm/dL Hct (34.0-46.0) % MCV (80.0-100.0) fL MCH (25.0-35.0) pg MCHC (31.0-37.0) g/dL RDW (11.5-15.5) % Plt Count (150-450) k/uL MPV Neutrophils % % Lymphocytes % % Monocytes % % Eosinophils % % Basophils % % Neutrophils # (1.3-7.7) k/uL Lymphocytes # (1.0-4.8) k/uL Monocytes # (0-1.0) k/uL Eosinophils # (0-0.7) k/uL Basophils # (0-0.2) k/uL Hypochromasia Poikilocytosis Anisocytosis Microcytosis PT (9.0-12.0) sec INR (<1.2) APTT (22.0-30.0) sec D-Dimer (<0.60) mg/L FEU Sodium (137-145) mmol/L Potassium (3.5-5.1) mmol/L Chloride (98-107) mmol/L Carbon Dioxide (22-30) mmol/L Anion Gap mmol/L BUN (7-17) mg/dL Creatinine (0.52-1.04) mg/dL Est GFR (CKD-EPI)AfAm (>60 ml/min/1.73 sqM) Est GFR (CKD-EPI)NonAf (>60 ml/min/1.73 sqM) Glucose (74-99) mg/dL Plasma Lactic Acid Jc 1.6 (0.7-2.0) mmol/L Calcium (8.4-10.2) mg/dL Magnesium (1.6-2.3) mg/dL Total Bilirubin (0.2-1.3) mg/dL AST (14-36) U/L ALT (4-34) U/L Alkaline Phosphatase (38-126) U/L Troponin I <0.012 (0.000-0.034) ng/mL NT-Pro-B Natriuret Pep pg/mL Total Protein (6.3-8.2) g/dL Albumin (3.5-5.0) g/dL Lipase (23-300) U/L Coronavirus (PCR) (Not Detectd) Blood Type A Negative Blood Type Recheck A Neg Bld Type Recheck Status No Antibody Screen NEGATIVE Crossmatch See Detail Spec Expiration Date 06/26/2023 - 229906/23/23 Range/Units 04:12 WBC (3.8-10.6) k/uL RBC (3.80-5.40) m/uL Hgb (11.4-16.0) gm/dL Hct (34.0-46.0) % MCV (80.0-100.0) fL MCH (25.0-35.0) pg MCHC (31.0-37.0) g/dL RDW (11.5-15.5) % Plt Count (150-450) k/uL MPV Neutrophils % % Lymphocytes % % Monocytes % % Eosinophils % % Basophils % % Neutrophils # (1.3-7.7) k/uL Lymphocytes # (1.0-4.8) k/uL Monocytes # (0-1.0) k/uL Eosinophils # (0-0.7) k/uL Basophils # (0-0.2) k/uL Hypochromasia Poikilocytosis Anisocytosis Microcytosis PT (9.0-12.0) sec INR (<1.2) APTT (22.0-30.0) sec D-Dimer (<0.60) mg/L FEU Sodium (137-145) mmol/L Potassium (3.5-5.1) mmol/L Chloride (98-107) mmol/L Carbon Dioxide (22-30) mmol/L Anion Gap mmol/L BUN (7-17) mg/dL Creatinine (0.52-1.04) mg/dL Est GFR (CKD-EPI)AfAm (>60 ml/min/1.73 sqM) Est GFR (CKD-EPI)NonAf (>60 ml/min/1.73 sqM) Glucose (74-99) mg/dL Plasma Lactic Acid Jc (0.7-2.0) mmol/L Calcium (8.4-10.2) mg/dL Magnesium (1.6-2.3) mg/dL Total Bilirubin (0.2-1.3) mg/dL AST (14-36) U/L ALT (4-34) U/L Alkaline Phosphatase (38-126) U/L Troponin I (0.000-0.034) ng/mL NT-Pro-B Natriuret Pep pg/mL Total Protein (6.3-8.2) g/dL Albumin (3.5-5.0) g/dL Lipase (23-300) U/L Coronavirus (PCR) Detected A (Not Detectd) Blood Type Blood Type Recheck Bld Type Recheck Status Antibody Screen Crossmatch Spec Expiration Date Disposition Clinical Impression: Congestive heart failure, Community acquired pneumonia, COPD (chronic obstructive pulmonary disease), Blood loss anemia Disposition: ADMITTED IP TO THIS [facility] Referrals: Senait Wick DO [STAFF PHYSICIAN] - 1-2 days Time of Disposition: 03:00 Decision to Admit Reason: Admit from EC Decision Date: 06/23/23 Decision Time: 03:00
--- NOTE | 2023-06-23 03:01 | CT ---
EXAM: CT Angiography Chest With Intravenous Contrast CLINICAL HISTORY: ITS.REASON CT Reason: SOB, r/o PE TECHNIQUE: Axial computed tomographic angiography images of the chest with intravenous contrast. CTDI is 16.9 mGy and DLP is 292 mGy-cm. This CT exam was performed using one or more of the following dose reduction techniques: automated exposure control, adjustment of the mA and/or kV according to patient size, and/or use of iterative reconstruction technique. MIP reconstructed images were created and reviewed. COMPARISON: No relevant prior studies available. FINDINGS: There is a 10 mm left thyroid lobe nodule; no follow-up is indicated due to size less than 15 mm. 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 There is no mediastinal, hilar, or axillary lymphadenopathy. Thoracic aorta is calcified but there is no aneurysm or dissection. There is adequate opacification of the pulmonary arteries. Main pulmonary artery is normal in caliber. There is no evidence of acute pulmonary embolism. Heart size is normal. Coronary arteries are calcified. There is no pericardial effusion. Elevated RV/LV ratio suggests chronic right ventricular dysfunction. There is consolidation, volume loss, and bronchiectasis in the lateral segment of the right middle lobe compatible with chronic postinflammatory change. There are additional patchy ground-glass and alveolar opacities within the right middle lobe. There is dependent airspace disease at the right lung base. Small right pleural effusion is present. There is no pneumothorax. There is a 10 mm solid pulmonary nodule in the left upper lobe (series 401, image 33). There is an 11 mm sub-solid nodule in the left lower lobe with 8 mm solid component (series 401, image 83). There is a background of centrilobular emphysema. Mild dependent congestive changes are noted. There are partially imaged left kidney cysts. There is no acute fracture or dislocation. IMPRESSION: 1. No evidence of acute pulmonary embolism. 2. Patchy alveolar opacities in the right middle lobe, potentially pneumonia. 3. Dependent airspace disease at the right lung base could represent atelectasis, aspiration, or pneumonia. 4. Small right pleural effusion. 5. Mild dependent pulmonary edema. 6. Emphysema. 7. Chronic consolidation with volume loss lateral segment right middle lobe in keeping with chronic postinflammatory change. 8. Solid 10 mm pulmonary nodule left upper lobe. Sub-solid 11 mm pulmonary nodule left lower lobe with 8 mm solid component. Consider follow-up chest CT in 3-6 months per Fleischner Society guidelines.
[2023-06-23] MEDS ORDERED: NALOXONE 0.4 MG/ML 1 ML VIAL IV PRN (05:07)
[2023-06-23] MEDS ORDERED: IPRATROPIUM-ALBUTEROL 3 ML NEB INHALATION PRN (05:09)
[2023-06-23] MEDS ORDERED: IBUPROFEN 200 MG TAB PO PRN (07:57)
[2023-06-23] MEDS ORDERED: CYCLOBENZAPRINE 5 MG TAB PO PRN (07:57)
[2023-06-23] MEDS ORDERED: ONDANSETRON 4 MG/2 ML VIAL IVP PRN (07:59)
[2023-06-23] MEDS ORDERED: ACETAMINOPHEN TAB 325 MG TAB PO PRN (07:59)
[2023-06-23] MEDS ORDERED: FLUTICASONE 110 MCG INHALER INHALATION SCH (08:00)
[2023-06-23] MEDS ORDERED: BUDESONIDE 0.5 MG/2 ML NEBU INHALATION SCH (08:00)
[2023-06-23] MEDS ORDERED: IPRATROPIUM-ALBUTEROL 3 ML NEB INHALATION SCH (08:00)
[2023-06-23 08:14] LABS: Anisocytosis Moderate; Basophils % (A) 0 %; Eosinophils % (A) 0 %; HCT 29.3 % (34.0-46.0); Hypochromasia Marked; Lymphocytes # (A) 0.6 k/uL (1.0-4.8); Lymphocytes % (A) 4 %; MCH 18.9 pg (25.0-35.0); MCHC 28.8 g/dL (31.0-37.0); MCV 65.9 fL (80.0-100.0); Mean Platelet Volume 7.4; Microcytosis Marked; Monocytes # (A) 0.8 k/uL (0-1.0); Monocytes % (A) 6 %; Neutrophils # (A) 12.8 k/uL (1.3-7.7); Neutrophils % (A) 89 %; Platelet Count 429 k/uL (150-450); Poikilocytosis Marked; RBC 4.45 m/uL (3.80-5.40); RDW 23.4 % (11.5-15.5); WBC 14.3 k/uL (3.8-10.6)
[2023-06-23 08:28] LABS: HGB 8.4 gm/dL (11.4-16.0)
[2023-06-23 08:34] LABS: African American GFR (CKD) 73 (>60 ml/min/1.73 sqM); Anion Gap 8 mmol/L; Blood Urea Nitrogen 12 mg/dL (7-17); Calcium 8.8 mg/dL (8.4-10.2); Carbon Dioxide 28 mmol/L (22-30); Chloride 100 mmol/L (98-107); Glucose 150 mg/dL (74-99); Non-African American GFR(CKD) 64 (>60 ml/min/1.73 sqM); Potassium 3.9 mmol/L (3.5-5.1); Sodium 136 mmol/L (137-145)
[2023-06-23] MEDS: NICOTINE 21MG/24HR PATCH TRANSDERM SCH ×2 (08:56→14:09)
[2023-06-23] MEDS ORDERED: ALBUTEROL HFA INHALER INHALATION PRN (08:58)
[2023-06-23] MEDS: TIOTROPIUM 2.5 MCG INHALER INHALATION SCH (09:02)
[2023-06-23] MEDS: ALBUTEROL HFA INHALER INHALATION SCH ×3 (09:02→21:05)
[2023-06-23] MEDS: MONTELUKAST 10 MG TAB PO SCH (09:09)
[2023-06-23] MEDS: FUROSEMIDE 10 MG/ML 4 ML VIAL IV SCH ×2 (11:33→21:15)
[2023-06-23] MEDS: methylPREDNISolone SOD SUCCI 125 MG/2 ML VIAL IV SCH ×2 (11:33→17:01)
[2023-06-23] MEDS: PANTOPRAZOLE 40 MG/10 ML VIAL IVP SCH ×2 (11:33→20:03)
--- NOTE | 2023-06-23 12:13 | P.CNPUL ---
History of Present Illness Consult date: 06/23/23 Reason for consult: dyspnea, COPD Chief complaint: COVID 19 History of present illness: This is a 77-year-old female patient with advanced oxygen-dependent COPD agosto been followed up in our office regarding her COPD. The patient is a chronic smoker. The patient has been vaccinated for Covid 19 infection. Covid 19 in fection was present in several family members and the patient was infected and infection was confirmed on 06/15/20. The patient's progressively getting more short of breath and she ended up coming into the hospital because of worsening shortness of breath, diminished appetite, diminished oral intake, cough congestion chest tightness and wheeze. Her blood work shows a little discomfort of 14.3, hemoglobin is at 8.4 after being given a unit of packed RBC for a admission hemoglobin of 6.4. She is microcytic. She could be potentially deficient. Electrolytes were all within normal limits. The patient is currently on oxygen at 2 L with a pulse ox of 97%. A CT angiogram that was done on June admission showed no evidence of any pulmonary embolism. Patchy alveolar opacity/infiltrate/atelectasis in the right middle lobe. Some limited airspace in lung bases more so on the right. Left upper lobe pulmonary nodule measuring 10 mm in size and another subsided lesion 11 mm in size in the left lower lobe. Note that this is the patient's first Covid 19 infection. Review of Systems Constitutional: Reports fatigue, Reports weakness Eyes: denies as per HPI, denies blurred vision, denies bulging eye, denies decreased vision, denies diplopia, denies discharge, denies dry eye, denies irritation, denies itching, denies pain, denies photophobia, denies loss of peripheral vision, denies loss of vision, denies tunnel vision/blind spots Ears, nose, mouth and throat: Reports as per HPI Breasts: absent: as per HPI, change in shape, gynecomastia, masses, nipple discharge, pain, skin changes, swelling Cardiovascular: Reports decreased exercise tolerance, Reports dyspnea on exertion Respiratory: Reports cough, Reports dyspnea Gastrointestinal: Reports as per HPI Genitourinary: Reports as per HPI Menstruation: Reports as per HPI Musculoskeletal: Reports as per HPI Musculoskeletal: absent: ankle pain, ankle stiffness, ankle swelling Integumentary: Reports as per HPI Neurological: Reports as per HPI Psychiatric: Reports as per HPI Hematologic/Lymphatic: Reports as per HPI Allergic/Immunologic: Reports as per HPI Past Medical History Past Medical History: COPD, Hypertension Additional Past Medical History / Comment(s): PVD. History of Any Multi-Drug Resistant Organisms: None Reported Past Surgical History: Bladder Surgery Additional Past Surgical History / Comment(s): carotid endarterectomy Past Anesthesia/Blood Transfusion Reactions: No Reported Reaction Smoking Status: Current every day smoker - Past Family History Mother Family Medical History: Congestive Heart Failure (CHF) Father Family Medical History: Myocardial Infarction ([place]) Medications and Allergies Home Medications Medication Instructions Recorded Confirmed Type ALPRAZolam [Xanax] 0.5 mg PO BID PRN 09/29/20 06/23/23 History Budesonide [Pulmicort] 0.5 mg INHALATION RT-BID 09/29/20 06/23/23 History Ibuprofen [Motrin Ib] 200 mg PO Q8H PRN 09/29/20 06/23/23 History Ipratropium-Albuterol Nebulize 3 ml INHALATION RT-Q6H 09/29/20 06/23/23 History [Duoneb 0.5 mg-3 mg/3 ml Soln] Montelukast [Singulair] 10 mg PO DAILY 09/29/20 06/23/23 History diphenhydrAMINE [Benadryl] 25 mg PO QID PRN 09/29/20 06/23/23 History Albuterol Inhaler [Ventolin Hfa 1 - 2 puff INHALATION RT-Q6H PRN 06/23/23 06/23/23 History Inhaler] Cyclobenzaprine [Flexeril] 10 mg PO BID PRN 06/23/23 06/23/23 History Furosemide [Lasix] 40 mg PO DAILY 06/23/23 06/23/23 History Olmesartan/Hydrochlorothiazide 1 tab PO DIRECTED PRN 06/23/23 06/23/23 History [Olmesartan-Hctz 40-25 mg Tab] Allergies Allergy/AdvReac Type Severity Reaction Status Date / Time Penicillins Allergy Unknown Verified 06/23/23 11:37 hydrocodone AdvReac Nausea & Verified 06/23/23 11:37 Vomiting Physical Exam Vitals: Vital Signs Temp Pulse Pulse Resp BP BP Pulse Ox 06/23/23 06:40 98.2 F 107 H 20 106/59 92 L 06/23/23 05:00 104 H 20 132/68 95 06/23/23 04:30 98.4 F 102 H 22 148/69 92 L 06/23/23 03:00 108 H 22 156/73 91 L 06/23/23 02:26 98.5 F 106 H 20 154/58 91 L 06/23/23 02:06 98.5 F 115 H 20 134/66 91 L 06/23/23 01:50 98.7 F 110 H 20 146/79 90 L 06/22/23 22:48 22 06/22/23 22:43 98.7 F 113 H 22 150/69 90 L Intake and Output 06/22/23 06/23/23 06/23/23 22:59 06:59 14:59 Intake Total 850 Balance 850 Intake: Oral 540 Blood Product 310 Rc As-1 Unit 310 [id number] Other: Voiding Method External Catheter Weight 54.431 kg 54.431 kg GENERAL EXAM: Alert, active, pleasant 75-year-old female patient, on 3 liters per minute per nasal cannula, comfortable in no apparent distress. HEAD: Normocephalic. EYES: Normal reaction of pupils, equal size. NOSE: Clear with pink turbinates. THROAT: No erythema or exudates. NECK: No masses, no JVD. CHEST: No chest wall deformity. LUNGS: Equal air entry with end expiratory wheeze, diminished CVS: S1 and S2 normal with no audible murmur, regular rhythm. ABDOMEN: No hepatosplenomegaly, normal bowel sounds, no guarding or rigidity. SPINE: No scoliosis or deformity SKIN: No rashes CENTRAL NERVOUS SYSTEM: No focal deficits, tone is normal in all 4 extremities. EXTREMITIES: There is no peripheral edema. No clubbing, no cyanosis. Peripheral pulses are intact. Results - Laboratory Findings CBC and BMP: 06/23/23 07:40 06/23/23 07:57 PT/INR, D-dimer PT 10.5 sec (9.0-12.0) 06/22/23 22:47 INR 1.0 (<1.2) 06/22/23 22:47 D-Dimer 1.37 mg/L FEU (<0.60) H 06/22/23 22:47 Abnormal lab findings: Abnormal Labs 06/22/23 06/22/23 06/22/23 22:47 22:47 22:47 WBC 11.0 H Hgb 6.4 L* Hct 23.9 L MCV 62.0 L MCH 16.7 L MCHC 27.0 L RDW 21.2 H Neutrophils # 9.6 H Lymphocytes # 0.7 L APTT 18.6 L D-Dimer 1.37 H Sodium 132 L Glucose 126 H Albumin 3.3 L Coronavirus (PCR) Crossmatch 06/23/23 06/23/23 06/23/23 00:00 04:12 07:40 WBC 14.3 H Hgb 8.4 L D Hct 29.3 L MCV 65.9 L MCH 18.9 L MCHC 28.8 L RDW 23.4 H Neutrophils # 12.8 H Lymphocytes # 0.6 L APTT D-Dimer Sodium Glucose Albumin Coronavirus (PCR) Detected A Crossmatch See Detail 06/23/23 07:57 WBC Hgb Hct MCV MCH MCHC RDW Neutrophils # Lymphocytes # APTT D-Dimer Sodium 136 L Glucose 150 H Albumin Coronavirus (PCR) Crossmatch - Diagnostic Findings Chest x-ray: image reviewed CT scan - chest: image reviewed Assessment and Plan Plan: Acute Covid 19 infection and infection was confirmed on 06/15/2023. The patient is vaccinated 2 for Covid 19 without any boosters. This is her only infection over the years. Acute COPD exacerbation with secondary shortness of breath Right middle lobe pulmonary infiltrates along with some limited bibasilar pulmonary infiltrates, concerning for Covid 19bacterial pneumonia Advanced options dependent COPD Chronic smoking Left upper lobe pulmonary nodule measuring 10 mm in size Left lower lobe pulmonary nodule, sub-solid measuring approximately 11 mm in size with a solid component of 8 mm. Hypertension Chronic anxiety Plan Will start the patient on Symbicort 2 puffs twice a day. She has been tried on Trelegy Ellipta in the past and she was unable to tolerate because of oroph aryngeal candidiasis. Ventolin 4 times a day [id number] IV Solu-Medrol 60 mg every 6 hours IV Rocephin 1 g and Zithromax 5 mg by mouth daily Check pro calcitonin level Check LDH Outpatient follow-up regarding the pulmonary nodules Smoking cessation counseling nicotine patch Titrate oxygen flow to maintain a saturation above 90% We'll continue to follow
--- NOTE | 2023-06-23 16:47 | P.HPIM ---
History of Present Illness H&P Date: 06/23/23 Chief Complaint: Shortness of breath 77-year-old female with a past medical history including COPD and hypertension presents emergency department via EMS for increasing shortness of breath. The patient did state that she was recently diagnosed with COVID-[address] ated that she had increasing shortness of breath today with productive cough. The patient also stated that she spiked a fever today at home. The patient did state that she had increased her oxygen requirements above her normal 2 L of O2. The patient did receive a breathing treatment by EMS during transport and on arrival did state that the symptoms were improved. The patient herself did state that she still continued to feel body aches as well as chills. The patient denied any other acute pain or complaints at this time. Blood work shows WBC of 14.3, hemoglobin is at 8.4 after being given a unit of packed RBC for a admission hemoglobin of 6.4. Electrolytes were all within normal limits. CT angiogram that was done on June admission showed no evidence of any pulmonary embolism. Patchy alveolar opacity/infiltrate/atelectasis in the right middle lobe. Some limited airspace in lung bases more so on the right. Left upper lobe pulmonary nodule measuring 10 mm in size and another subsided lesion 11 mm in size in the left lower lobe. COVID-19 PCR is positive Review of Systems REVIEW OF SYSTEMS: CONSTITUTIONAL: No fever, no malaise, no fatigue. HEENT: No recent visual problems or hearing problems. Denied any sore throat. CARDIOVASCULAR: No chest pain, orthopnea, PND, no palpitations, no syncope. PULMONARY: Complained of shortness of breath; no cough, no hemoptysis. GASTROINTESTINAL: No diarrhea, no nausea, no vomiting, no abdominal pain. NEUROLOGICAL: No headaches, no weakness, no numbness. HEMATOLOGICAL: Denies any bleeding or petechiae. GENITOURINARY: Denies any burning micturition, frequency, or urgency. MUSCULOSKELETAL/RHEUMATOLOGICAL: Denies any joint pain, swelling, or any muscle pain. ENDOCRINE: Denies any polyuria or polydipsia. The rest of the 14-point review of systems is negative. Past Medical History Past Medical History: COPD, Hypertension Additional Past Medical History / Comment(s): PVD. History of Any Multi-Drug Resistant Organisms: None Reported Past Surgical History: Bladder Surgery Additional Past Surgical History / Comment(s): carotid endarterectomy Past Anesthesia/Blood Transfusion Reactions: No Reported Reaction Smoking Status: Current every day smoker - Past Family History Mother Family Medical History: Congestive Heart Failure (CHF) Father Family Medical History: Myocardial Infarction ([place]) Medications and Allergies Home Medications Medication Instructions Recorded Confirmed Type ALPRAZolam [Xanax] 0.5 mg PO BID PRN 09/29/20 06/23/23 History Budesonide [Pulmicort] 0.5 mg INHALATION RT-BID 09/29/20 06/23/23 History Ibuprofen [Motrin Ib] 200 mg PO Q8H PRN 09/29/20 06/23/23 History Ipratropium-Albuterol Nebulize 3 ml INHALATION RT-Q6H 09/29/20 06/23/23 History [Duoneb 0.5 mg-3 mg/3 ml Soln] Montelukast [Singulair] 10 mg PO DAILY 09/29/20 06/23/23 History diphenhydrAMINE [Benadryl] 25 mg PO QID PRN 09/29/20 06/23/23 History Albuterol Inhaler [Ventolin Hfa 1 - 2 puff INHALATION RT-Q6H PRN 06/23/2306/23 History Inhaler] Cyclobenzaprine [Flexeril] 10 mg PO BID PRN 06/23/23 06/23/23 History Furosemide [Lasix] 40 mg PO DAILY 06/23/23 06/23/23 History Olmesartan/Hydrochlorothiazide 1 tab PO DIRECTED PRN 06/23/23 06/23/23 History [Olmesartan-Hctz 40-25 mg Tab] Allergies Allergy/AdvReac Type Severity Reaction Status Date / Time Penicillins Allergy Unknown Verified 06/23/23 11:37 hydrocodone AdvReac Nausea & Verified 06/23/23 11:37 Vomiting Physical Exam Vitals: Vital Signs Temp Pulse Pulse Resp BP BP Pulse Ox 06/23/23 08:00 98.5 F 100 21 145/65 97 06/23/23 06:40 98.2 F 107 H 20 106/59 92 L 06/23/23 05:00 104 H 20 132/68 95 06/23/23 04:30 98.4 F 102 H 22 148/69 92 L 06/23/23 03:00 108 H 22 156/73 91 L 06/23/23 02:26 98.5 F 106 H 20 154/58 91 L 06/23/23 02:06 98.5 F 115 H 20 134/66 91 L 06/23/23 01:50 98.7 F 110 H 20 146/79 90 L 06/22/23 22:48 22 06/22/23 22:43 98.7 F 113 H 22 150/69 90 L Intake and Output 06/22/23 06/23/23 06/23/23 22:59 06:59 14:59 Intake Total 850 Balance 850 Intake: Oral 540 Blood Product 310 Rc As-1 Unit 310 [id number] Other: Voiding Method External Catheter Weight 54.431 kg 54.431 kg General appearance: alert, in no apparent distress Head exam: Present: atraumatic, normocephalic, normal inspection Eye exam: Present: normal appearance, PERRL Pupils: Present: normal accommodation Neck exam: Present: normal inspection, full ROM Respiratory exam: Present: decreased breath sounds Cardiovascular Exam: Present: normal rhythm, tachycardia GI/Abdominal exam: Present: soft, normal bowel sounds Extremities exam: Present: normal inspection, full ROM Neurological exam: Present: alert, oriented X3, CN II-XII intact Psychiatric exam: Present: normal affect, normal mood Skin exam: Present: warm, dry Results CBC & Chem 7: 06/23/23 07:40 06/23/23 07:57 Labs: Abnormal Lab Results - Last 24 Hours (Table) 06/22/23 06/22/23 06/22/23 Range/Units 22:47 22:47 22:47 WBC 11.0 H (3.8-10.6) k/uL Hgb 6.4 L* (11.4-16.0) gm/dL Hct 23.9 L (34.0-46.0) % MCV 62.0 L (80.0-100.0) fL MCH 16.7 L (25.0-35.0) pg MCHC 27.0 L (31.0-37.0) g/dL RDW 21.2 H (11.5-15.5) % Neutrophils # 9.6 H (1.3-7.7) k/uL Lymphocytes # 0.7 L (1.0-4.8) k/uL APTT 18.6 L (22.0-30.0) sec D-Dimer 1.37 H (<0.60) mg/L FEU Sodium 132 L (137-145) mmol/L Glucose 126 H (74-99) mg/dL Albumin 3.3 L (3.5-5.0) g/dL Coronavirus (PCR) (Not Detectd) Crossmatch 06/23/23 06/23/23 06/23/23 Range/Units 00:00 04:12 07:40 WBC 14.3 H (3.8-10.6) k/uL Hgb 8.4 L D (11.4-16.0) gm/dL Hct 29.3 L (34.0-46.0) % MCV 65.9 L (80.0-100.0) fL MCH 18.9 L (25.0-35.0) pg MCHC 28.8 L (31.0-37.0) g/dL RDW 23.4 H (11.5-15.5) % Neutrophils # 12.8 H (1.3-7.7) k/uL Lymphocytes # 0.6 L (1.0-4.8) k/uL APTT (22.0-30.0) sec D-Dimer (<0.60) mg/L FEU Sodium (137-145) mmol/L Glucose (74-99) mg/dL Albumin (3.5-5.0) g/dL Coronavirus (PCR) Detected A (Not Detectd) Crossmatch See Detail 06/23/23 Range/Units 07:57 WBC (3.8-10.6) k/uL Hgb (11.4-16.0) gm/dL Hct (34.0-46.0) % MCV (80.0-100.0) fL MCH (25.0-35.0) pg MCHC (31.0-37.0) g/dL RDW (11.5-15.5) % Neutrophils # (1.3-7.7) k/uL Lymphocytes # (1.0-4.8) k/uL APTT (22.0-30.0) sec D-Dimer (<0.60) mg/L FEU Sodium 136 L (137-145) mmol/L Glucose 150 H (74-99) mg/dL Albumin (3.5-5.0) g/dL Coronavirus (PCR) (Not Detectd) Crossmatch Thrombosis Risk Factor Assmnt - Choose All That Apply Any of the Below Risk Factors Present?: Yes Each Factor Represents 1 point: Medical pt on bed rest Other Risk Factors: Yes Each Risk Factor Represents 2 Points: Patient confined to bed Each Risk Factor Represents 3 Points: Age 75 years or older Other congenital or acquired thrombophilia - If yes, enter type in comment: No Thrombosis Risk Factor Assessment Total Risk Factor Score: 6 Thrombosis Risk Factor Assessment Level: High Risk Assessment and Plan Assessment: 1. COVID-19 infection -- The patient is vaccinated 2 for Covid 19 without any boosters. - Bronchodilator inhaler therapy - Monitor inflammatory markers including pro-calcitonin, LDH, CRP, d-dimer - COVID-19 vitamin cocktail 2. Acute exacerbation COPD; patient is in place on Solu-Medrol 60 mg IV every 6 hours; Symbicort 1604.5 MCG twice a day; DuoNeb nebulizer treatments 4 times a day and when necessary; Spiriva 3 puffs daily; continue home dose of Singulair 10 mg daily 3. Right middle lobe pneumonia; likely superimposed bacterial infection and COVID-19 positive patient; patient doesn't placed on Rocephin 1 g IV daily along with azithromycin; we will monitor CBC, CMP and pro-calcitonin 4. Lung nodule; CTA chest reveals left lower lobe pulmonary nodule 11 mm in size with a solid component of 8 mm 5. Hypertension; continue with home antihypertensive therapy 6. Chronic tobacco abuse; nicotine patch 21 mg per 24 hours DVT prophylaxis; SCDs/subcu Lovenox CODE STATUS; full code
[2023-06-23] MEDS: ASCORBIC ACID 500 MG TAB PO SCH (17:02)
[2023-06-23] MEDS: CHOLECALCIFEROL 25 MCG (1000 IU) TABLET PO SCH (17:02)
[2023-06-23] MEDS: ZINC SULFATE 220 MG CAP PO SCH (17:02)
[2023-06-23 17:14] LABS: Anisocytosis Moderate; Basophils % (A) 0 %; Eosinophils % (A) 0 %; HCT 29.9 % (34.0-46.0); HGB 8.7 gm/dL (11.4-16.0); Hypochromasia Marked; Lymphocytes # (A) 0.2 k/uL (1.0-4.8); Lymphocytes % (A) 2 %; MCHC 29.1 g/dL (31.0-37.0); MCV 65.3 fL (80.0-100.0); Mean Platelet Volume 6.7; Microcytosis Marked; Monocytes # (A) 0.2 k/uL (0-1.0); Monocytes % (A) 1 %; Neutrophils # (A) 11.5 k/uL (1.3-7.7); Neutrophils % (A) 96 %; Platelet Count 439 k/uL (150-450); Poikilocytosis Marked; RBC 4.59 m/uL (3.80-5.40); RDW 23.2 % (11.5-15.5)
[2023-06-23 20:11] LABS: Glucose,Whole Blood 302 mg/dL (70-110)
[2023-06-23] MEDS ORDERED: MIDODRINE 5 MG TAB PO STA (20:29)
[2023-06-23] MEDS: SYMBICORT 160-4.5 MCG INHALER INHALATION SCH (21:05)
[2023-06-23] MEDS: INSULIN ASPART (NovoLOG) 100 UNIT/ML VIAL SQ SCH (21:19)
[2023-06-24] MEDS: methylPREDNISolone SOD SUCCI 125 MG/2 ML VIAL IV SCH ×5 (00:02→22:57)
[2023-06-24] MEDS: ALBUTEROL HFA INHALER INHALATION SCH ×4 (01:06→21:38)
[2023-06-24 06:08] LABS: Glucose,Whole Blood 191 mg/dL (70-110)
[2023-06-24] MEDS: INSULIN ASPART (NovoLOG) 100 UNIT/ML VIAL SQ SCH ×4 (06:16→20:25)
[2023-06-24] MEDS: ALPRAZolam 0.5 MG TAB PO PRN ×2 (06:19→13:37)
[2023-06-24] MEDS: SYMBICORT 160-4.5 MCG INHALER INHALATION SCH ×2 (07:40→21:35)
[2023-06-24] MEDS: TIOTROPIUM 2.5 MCG INHALER INHALATION SCH (07:40)
[2023-06-24 08:33] LABS: African American GFR (CKD) 66 (>60 ml/min/1.73 sqM); Anion Gap 5 mmol/L; Blood Urea Nitrogen 18 mg/dL (7-17); Carbon Dioxide 32 mmol/L (22-30); Chloride 98 mmol/L (98-107); Glucose 158 mg/dL (74-99); Non-African American GFR(CKD) 57 (>60 ml/min/1.73 sqM); Potassium 3.8 mmol/L (3.5-5.1); Sodium 135 mmol/L (137-145)
[2023-06-24] MEDS: PANTOPRAZOLE 40 MG/10 ML VIAL IVP SCH ×2 (08:51→20:25)
[2023-06-24] MEDS: CHOLECALCIFEROL 25 MCG (1000 IU) TABLET PO SCH (08:51)
[2023-06-24] MEDS: NICOTINE 14MG/24HR PATCH TRANSDERM SCH (08:52)
[2023-06-24] MEDS: ASCORBIC ACID 500 MG TAB PO SCH (08:52)
[2023-06-24] MEDS: FUROSEMIDE 10 MG/ML 4 ML VIAL IV SCH ×2 (08:52→20:25)
[2023-06-24] MEDS: MONTELUKAST 10 MG TAB PO SCH (08:52)
[2023-06-24] MEDS: AZITHROMYCIN 500 MG TAB PO SCH ×2 (08:52→10:12)
[2023-06-24] MEDS: ZINC SULFATE 220 MG CAP PO SCH (08:52)
--- NOTE | 2023-06-24 10:13 | CA ---
Transthoracic Echo Report Name: Bindu Canela Age: 77 Gender: F : 1945 Exam Date: 06/23/2023 14:26 Exam Location: [facility] Ht (in): 62 Wt (lb): 120 Ordering Physician: Daniella Johnson MD Attending/Referring Phys: [id number], Elizabeth [employer]icult[employer] Teacher Donna Chou RDCS Procedure CPT: Indications: chf Cardiac Hx: Technical Quality: Very technically difficult study Contrast 1: Total Dose (mL): Contrast 2: Total Dose (mL): MEASUREMENTS (Male / Female) Normal Values 2D ECHO LV Diastolic Diameter PLAX 3.7 cm 4.2 - 5.9 / 3.9 - 5.3 cm LV Systolic Diameter PLAX 1.8 cm IVS Diastolic Thickness 1.0 cm 0.6 - 1.0 / 0.6 - 0.9 cm LVPW Diastolic Thickness 1.1 cm 0.6 - 1.0 / 0.6 - 0.9 cm LV Relative Wall Thickness 0.5 LA Volume 37.6 cm??? 18 - 58 / 22 - 52 cm??? DOPPLER AV Peak Velocity 162.3 cm/s AV Peak Gradient 10.5 mmHg AV Mean Velocity 111.9 cm/s AV Mean Gradient 5.7 mmHg AV Velocity Time Integral 32.8 cm LVOT Peak Velocity 110.9 cm/s LVOT Peak Gradient 4.9 mmHg MV Area PHT 5.9 cm??? Mitral E Point Velocity 66.4 cm/s Mitral A Point Velocity 102.7 cm/s Mitral E to A Ratio 0.6 MV Deceleration Time 128.8 ms MV E' Velocity 5.8 cm/s Mitral E to MV E' Ratio 11.4 TR Peak Velocity 228.1 cm/s TR Peak Gradient 20.8 mmHg Right Ventricular Systolic Press 25.8 mmHg FINDINGS Left Ventricle Mildly increased left ventricular wall thickness. Left ventricular cavity size normal. Normal left ventricular systolic function with no obvious regional wall motion abnormalities. Left ventricular ejection fraction is estimated at 50-55 %. Right Ventricle Normal right ventricular size and function. Right Atrium Right atrium not well visualized. Left Atrium Normal left atrial size. Mitral Valve Structurally normal mitral valve. Mild mitral annular calcification. Aortic Valve Trileaflet aortic valve. No aortic valve stenosis or regurgitation. Aortic valve sclerosis. Tricuspid Valve Structurally normal tricuspid valve. Mild tricuspid regurgitation. Pulmonic Valve Structurally normal pulmonic valve. Mild pulmonic regurgitation. Pericardium No pericardial effusion. epicardial fat seen. Aorta Normal size aortic root and proximal ascending aorta. CONCLUSIONS Very technically difficult study. Left ventricular ejection fraction is estimated at 50-55 %. No obvious regional wall motion abnormalities. Aortic valve sclerosis. Previewed by: Dr Houston Zuniga (Electronically Signed) Final Date: 24 June 2023 10:12
[2023-06-24] MEDS: AZITHROMYCIN 250 MG TAB PO SCH (10:52)
[2023-06-24] MEDS: NYSTATIN 100,000 UNIT/ML SUSP 500,000 UNIT/5 ML CUP PO SCH ×3 (10:52→22:57)
[2023-06-24 11:42] LABS: Glucose,Whole Blood 273 mg/dL (70-110)
--- NOTE | 2023-06-24 11:52 | P.PN ---
Subjective Progress Note Date: 06/24/23 This is a 77-year-old female patient with advanced oxygen-dependent COPD agosto been followed up in our office regarding her COPD. The patient is a chronic smoker. The patient has been vaccinated for Covid 19 infection. Covid 19 infection was present in several family members and the patient was infected and infection was confirmed on 06/15/20. The patient's progressively getting more short of breath and she ended up coming into the hospital because of worsening shortness of breath, diminished appetite, diminished oral intake, cough congestion chest tightness and wheeze. Her blood work shows a little discomfort of 14.3, hemoglobin is at 8.4 after being given a unit of packed RBC for a admission hemoglobin of 6.4. She is microcytic. She could be potentially deficient. Electrolytes were all within normal limits. The patient is currently on oxygen at 2 L with a pulse ox of 97%. A CT angiogram that was done on June admission showed no evidence of any pulmonary embolism. Patchy alveolar opacity/infiltrate/atelectasis in the right middle lobe. Some limited airspace in lung bases more so on the right. Left upper lobe pulmonary nodule measuring 10 mm in size and another subsided lesion 11 mm in size in the left lower lobe. Note that this is the patient's first Covid 19 infection. On today's evaluation of 06/24/2023, the patient is feeling slightly better. She has developed some thrush and the patient will be placed on nystatin. She remains on Rocephin and Zithromax. She remains on IV Solu-Medrol 60 mg every 6 hours. She remains on Symbicort and Spiriva as maintenance regarding her COPD and albuterol HFA on as-needed basis. The patient is a BUN of 18 with a c reatinine of 0.9 his sodium was at 135. The pro-calcitonin level was 0.44. LDH level was 217. Objective - Vital Signs Vital signs: Vital Signs Temp 97.1 F L 06/24/23 08:00 Pulse 99 06/24/23 08:00 Resp 22 06/24/23 08:00 BP 151/67 06/24/23 08:00 Pulse Ox 91 L 06/24/23 08:00 FiO2 Intake & Output 06/23/23 06/24/23 06/24/23 18:59 06:59 18:59 Intake Total 720 550 Output Total 1000 100 Balance -280 450 Weight 54.431 kg 53.2 kg Intake: IV 10 Invasive Line 1 10 Oral 720 540 Output: Urine 1000 100 Other: Voiding Method External Catheter External Catheter External Catheter - Exam GENERAL EXAM: Alert, active, pleasant 75-year-old female patient, on 3 liters per minute per nasal cannula, comfortable in no apparent distress. HEAD: Normocephalic. EYES: Normal reaction of pupils, equal size. NOSE: Clear with pink turbinates. THROAT: No erythema or exudates. NECK: No masses, no JVD. CHEST: No chest wall deformity. LUNGS: Equal air entry with end expiratory wheeze, diminished CVS: S1 and S2 normal with no audible murmur, regular rhythm. ABDOMEN: No hepatosplenomegaly, normal bowel sounds, no guarding or rigidity. SPINE: No scoliosis or deformity SKIN: No rashes CENTRAL NERVOUS SYSTEM: No focal deficits, tone is normal in all 4 extremities. EXTREMITIES: There is no peripheral edema. No clubbing, no cyanosis. Peripheral pulses are intact. - Labs CBC & Chem 7: 06/23/23 16:44 06/24/23 07:39 Labs: Abnormal Lab Results - Last 24 Hours (Table) 06/23/23 06/23/23 06/23/23 Range/Units 07:57 16:44 20:06 WBC 12.0 H (3.8-10.6) k/uL Hgb 8.7 L (11.4-16.0) gm/dL Hct 29.9 L (34.0-46.0) % MCV 65.3 L (80.0-100.0) fL MCH 19.0 L (25.0-35.0) pg MCHC 29.1 L (31.0-37.0) g/dL RDW 23.2 H (11.5-15.5) % Neutrophils # 11.5 H (1.3-7.7) k/uL Lymphocytes # 0.2 L (1.0-4.8) k/uL Sodium (137-145) mmol/L Carbon Dioxide (22-30) mmol/L BUN (7-17) mg/dL Glucose (74-99) mg/dL POC Glucose (mg/dL) 302 H (70-110) mg/dL Procalcitonin 0.44 H (0.02-0.09) ng/mL 06/24/23 06/24/23 Range/Units 06:07 07:39 WBC (3.8-10.6) k/uL Hgb (11.4-16.0) gm/dL Hct (34.0-46.0) % MCV (80.0-100.0) fL MCH (25.0-35.0) pg MCHC (31.0-37.0) g/dL RDW (11.5-15.5) % Neutrophils # (1.3-7.7) k/uL Lymphocytes # (1.0-4.8) k/uL Sodium 135 L (137-145) mmol/L Carbon Dioxide 32 H (22-30) mmol/L BUN 18 H (7-17) mg/dL Glucose 158 H (74-99) mg/dL POC Glucose (mg/dL) 191 H (70-110) mg/dL Procalcitonin (0.02-0.09) ng/mL Assessment and Plan Plan: Acute Covid 19 infection and infection was confirmed on 06/15/2023. The patient is vaccinated 2 for Covid 19 without any boosters. This is her only infection over the years. Acute COPD exacerbation with secondary shortness of breath Right middle lobe pulmonary infiltrates along with some limited bibasilar pulmonary infiltrates, concerning for Covid 19bacterial pneumonia Advanced options dependent COPD Chronic smoking Left upper lobe pulmonary nodule measuring 10 mm in size Left lower lobe pulmonary nodule, sub-solid measuring approximately 11 mm in size with a solid component of 8 mm. Hypertension Chronic anxiety Plan Clinically stable and the patient slightly improved Add nystatin for oropharyngeal candidiasis Continue Spiriva and Symbicort 2 puffs twice a day. She has been tried on Trelegy Ellipta in the past and she was unable to tolerate because of orophar yngeal candidiasis. Ventolin 4 times a day [id number] IV Solu-Medrol 60 mg every 6 hours IV Rocephin 1 g and Zithromax 5 mg by mouth daily Check pro calcitonin level is at 0.44 Check LDH is at 217 Outpatient follow-up regarding the pulmonary nodules Smoking cessation counseling nicotine patch Titrate oxygen flow to maintain a saturation above 90% We'll continue to follow
[2023-06-24 13:09] LABS: Anisocytosis Moderate; Basophils % (A) 0 %; Eosinophils % (A) 0 %; HCT 26.5 % (34.0-46.0); HGB 7.5 gm/dL (11.4-16.0); Hypochromasia Marked; Lymphocytes # (A) 0.4 k/uL (1.0-4.8); Lymphocytes % (A) 6 %; MCH 18.7 pg (25.0-35.0); MCHC 28.1 g/dL (31.0-37.0); MCV 66.6 fL (80.0-100.0); Mean Platelet Volume 7.9; Microcytosis Marked; Monocytes # (A) 0.2 k/uL (0-1.0); Monocytes % (A) 4 %; Neutrophils # (A) 6.2 k/uL (1.3-7.7); Neutrophils % (A) 90 %; Platelet Count 383 k/uL (150-450); Poikilocytosis Marked; RBC 3.98 m/uL (3.80-5.40); RDW 23.4 % (11.5-15.5); WBC 6.8 k/uL (3.8-10.6)
[2023-06-24] MEDS ORDERED: ACETAMINOPHEN ORAL SUSP 160 MG/5 ML CUP PO PRN (13:46)
--- NOTE | 2023-06-24 14:24 | P.CRDCN ---
History of Present Illness Consult date: 06/24/23 History of present illness: HISTORY OF PRESENTING ILLNESS 77-year-old female with past medical history of COPD, hypertension who was present to the hospital because of shortness of breath. On admission she was diagnosed to have COVID-19 infection. She reported having fever and elevated temperature at home. DIAGNOSTICS EKG reveals sinus tachycardia with LVH and repolarization abnormality. Chest xray mildly increased interstitial markings. Laboratory reviewed, no troponin elevation. Creatinine 0.8, sodium 132, h emoglobin 6.4 on admission. Repeat hemoglobin 8.7 Home cardiac medications include on losartan, hydrochlorothiazide, Lasix 40 mg daily. Chest CTA did not show any PE. Small right pleural effusion, mild pulmonary edema, left upper lung nodule REVIEW OF SYSTEMS 14 point review of system is negative except what is mentioned above in HPI. PHYSICAL EXAMINATION Vital signs reviewed. Head: Normocephalic. Eyes: Sclerae nonicteric. Neck: Brisk carotid upstroke, no jugular venous distention. Lungs: Mild crackles and rhonchi audible Heart: Regular rate and rhythm, S1-S2, no S3, no murmur or rub. Abdomen: Soft nontender, positive bowel sounds no organomegaly. Extremities: No edema, intact distal pulses. ASSESSMENT Acute COVID-19 infection with pneumonia Acute COPD exacerbation Chronic smoker Left upper lung nodule Hypertension Anemia PLAN Patient EKG shows sinus tachycardia which is consistent with her systemic infection from COVID-19. She does not have evidence of elevated troponin or i schemic changes on ECG. She does not appear significantly volume overloaded. Lasix management as per primary team/pulmo team Cardiology team will sign off at this time Past Medical History Past Medical History: COPD, Hypertension Additional Past Medical History / Comment(s): PVD. History of Any Multi-Drug Resistant Organisms: None Reported Past Surgical History: Bladder Surgery Additional Past Surgical History / Comment(s): carotid endarterectomy Past Anesthesia/Blood Transfusion Reactions: No Reported Reaction Smoking Status: Current every day smoker - Past Family History Mother Family Medical History: Congestive Heart Failure (CHF) Father Family Medical History: Myocardial Infarction (SC) Medications and Allergies Home Medications Medication Instructions Recorded Confirmed Type ALPRAZolam [Xanax] 0.5 mg PO BID PRN 09/29/20 06/23/23 History Budesonide [Pulmicort] 0.5 mg INHALATION RT-BID 09/29/20 06/23/23 History Ibuprofen [Motrin Ib] 200 mg PO Q8H PRN 09/29/20 06/23/23 History Ipratropium-Albuterol Nebulize 3 ml INHALATION RT-Q6H 09/29/20 06/23/23 History [Duoneb 0.5 mg-3 mg/3 ml Soln] Montelukast [Singulair] 10 mg PO DAILY 09/29/20 06/23/23 History diphenhydrAMINE [Benadryl] 25 mg PO QID PRN 09/29/20 06/23/23 History Albuterol Inhaler [Ventolin Hfa 1 - 2 puff INHALATION RT-Q6H PRN 06/23/23 06/23/23 History Inhaler] Cyclobenzaprine [Flexeril] 10 mg PO BID PRN 06/23/23 06/23/23 History Furosemide [Lasix] 40 mg PO DAILY 06/23/23 06/23/23 History Olmesartan/Hydrochlorothiazide 1 tab PO DIRECTED PRN 06/23/23 06/23/23 History [Olmesartan-Hctz 40-25 mg Tab] Allergies Allergy/AdvReac Type Severity Reaction Status Date / Time Penicillins Allergy Unknown Verified 06/23/23 11:37 hydrocodone AdvReac Nausea & Verified 06/23/23 11:37 Vomiting Physical Exam Vitals: Vital Signs Temp Pulse Resp BP BP Pulse Ox 06/24/23 11:35 97.9 F 102 H 20 131/61 97 06/24/23 08:00 97.1 F L 99 22 151/67 91 L 06/24/23 07:41 95 06/24/23 04:00 97.8 F 97 20 171/81 92 L 06/24/23 00:00 98.3 F 89 18 103/57 95 06/23/23 20:16 89/56 06/23/23 20:00 98 F 99 22 85/51 94 L 06/23/23 16:00 97.8 F 94 20 90/58 93 L Intake and Output 06/23/23 06/24/23 06/24/23 22:59 06:59 14:59 Intake Total 240 550 660 Output Total 900 100 200 Balance -660 450 460 Intake: IV 10 Invasive Line 1 10 Oral 240 540 660 Output: Urine 900 100 200 Other: Voiding Method External Catheter External Catheter External Catheter Weight 54.431 kg 53.2 kg Results 06/24/23 07:39 06/24/23 07:39 CBC 06/23/23 06/24/23 Range/Units 16:44 07:39 WBC 12.0 H 6.8 (3.8-10.6) k/uL RBC 4.59 3.98 (3.80-5.40) m/uL Hgb 8.7 L 7.5 L (11.4-16.0) gm/dL Hct 29.9 L 26.5 L (34.0-46.0) % Plt Count 439 383 (150-450) k/uL Comprehensive Metabolic Panel 06/24/23 Range/Units 07:39 Sodium 135 L (137-145) mmol/L Potassium 3.8 (3.5-5.1) mmol/L Chloride 98 (98-107) mmol/L Carbon Dioxide 32 H (22-30) mmol/L BUN 18 H (7-17) mg/dL Creatinine 0.96 (0.52-1.04) mg/dL Glucose 158 H (74-99) mg/dL Calcium 9.0 (8.4-10.2) mg/dL Current Medications Generic Name Dose Route Start Last Admin Trade Name Freq PRN Reason Stop Dose Admin Acetaminophen 650 mg 06/24/23 13:46 Acetaminophen Oral Susp 160 Mg/5 Ml Cup PO Q6HR PRN Fever and/ or Pain Albuterol Sulfate 2 puff 06/23/23 08:00 06/24/23 12:13 Albuterol Hfa Inhaler INHALATION 2 puff RT-Q6H NCIOLASA Administration Albuterol Sulfate 2 puff 06/23/23 08:58 Albuterol Hfa Inhaler INHALATION Q4H PRN Wheezing Alprazolam 0.5 mg 06/23/23 07:57 06/24/23 13:37 Alprazolam 0.5 Mg Tab PO 0.5 mg TID PRN Administration Anxiety Ascorbic Acid 500 mg 06/23/23 17:00 06/24/23 08:52 Ascorbic Acid 500 Mg Tab PO 500 mg DAILY NICOLASA Administration Azithromycin 500 mg 06/24/23 10:30 06/24/23 10:52 Azithromycin 250 Mg Tab PO 06/26/23 09:01 500 mg DAILY NICOLASA Administration Protocol Budesonide/Formoterol Fumarate 2 puff 06/23/23 20:00 06/24/23 07:40 Symbicort 160-4.5 Mcg Inhaler INHALATION 2 puff RT-BID NICOLASA Administration Cholecalciferol 50 mcg 06/23/23 17:00 06/24/23 08:51 Cholecalciferol 25 Mcg (1000 Iu) Tablet PO 50 mcg DAILY NICOLASA Administration Cyclobenzaprine HCl 5 mg 06/23/23 07:57 Cyclobenzaprine 5 Mg Tab PO TID PRN Muscle Spasm Furosemide 40 mg 06/23/23 11:15 06/24/23 08:52 Furosemide 10 Mg/Ml 4 Ml Vial IV 40 mg Q12HR NICOLASA Administration Ceftriaxone Sodium 1 gm/ 50 mls @ 100 mls/hr 06/24/23 09:00 06/24/23 08:52 Sodium Chloride IVPB 100 mls/hr Q24HR NICOLASA Administration Protocol Ibuprofen 200 mg 06/23/23 07:57 Ibuprofen 200 Mg Tab PO Q8H PRN Pain or Fever > 100.5 Insulin Aspart 0 unit 06/23/23 21:00 06/24/23 11:42 Insulin Aspart (Novolog) 100 Unit/Ml Vial SQ 3 unit ACHS NICOLASA Administration Protocol Methylprednisolone Sodium Succinate 60 mg 06/23/23 12:00 06/24/23 10:52 Methylprednisolone Sod Succi 125 Mg/2 Ml Vial IV 60 mg Q6HR NICOLASA Administration Montelukast Sodium 10 mg 06/23/23 09:00 06/24/23 08:52 Montelukast 10 Mg Tab PO 10 mg DAILY NICOLASA Administration Naloxone HCl 0.2 mg 06/23/23 05:07 Naloxone 0.4 Mg/Ml 1 Ml Vial IV Q2M PRN Opioid Reversal Nicotine 1 patch 06/24/23 09:00 06/24/23 08:52 Nicotine 14mg/24hr Patch TRANSDERM 1 patch DAILY NICOLASA Administration Nystatin 500,000 unit 06/24/23 13:00 06/24/23 10:52 Nystatin 100,000 Unit/Ml Susp 500,000 Unit/5 Ml Cup PO 500,000 unit QID NICOLASA Administration Protocol Ondansetron HCl 4 mg 06/23/23 07:59 06/24/23 05:18 Ondansetron 4 Mg/2 Ml Vial IVP 4 mg Q6HR PRN Administration Nausea And Vomiting Pantoprazole Sodium 40 mg 06/23/23 11:15 06/24/23 08:51 Pantoprazole 40 Mg/10 Ml Vial IVP 40 mg BID NICOLASA Administration Tiotropium [place] 3 puff 06/23/23 08:00 06/24/23 07:40 Tiotropium 2.5 Mcg Inhaler INHALATION 3 puff RT-DAILY NICOLASA Administration Zinc Sulfate 220 mg 06/23/23 17:00 06/24/23 08:52 Zinc Sulfate 220 Mg Cap PO 220 mg DAILY NICOLASA Administration Intake and Output 06/23/23 06/24/23 06/24/23 22:59 06:59 14:59 Intake Total 240 550 660 Output Total 900 100 200 Balance -660 450 460 Intake: IV 10 Invasive Line 1 10 Oral 240 540 660 Output: Urine 900 100 200 Other: Voiding Method External Catheter External Catheter External Catheter Weight 54.431 kg 53.2 kg 06/24/23 07:39 06/24/23 07:39
[2023-06-24 16:30] LABS: Glucose,Whole Blood 125 mg/dL (70-110)
--- NOTE | 2023-06-24 16:36 | P.PN ---
Subjective Progress Note Date: 06/24/23 77-year-old female with a past medical history including COPD and hypertension presents emergency department via EMS for increasing shortness of breath. The patient did state that she was recently diagnosed with COVID-19 last week and stated that she had increasing shortness of breath today with productive cough. The patient also stated that she spiked a fever today at home. The patient did state that she had increased her oxygen requirements above her normal 2 L of O2. The patient did receive a breathing treatment by EMS during transport and on arrival did state that the symptoms were improved. The patient herself did state that she still continued to feel body aches as well as chills. The patient denied any other acute pain or complaints at this time. Blood work shows WBC of 14.3, hemoglobin is at 8.4 after being given a unit of packed RBC for a admission hemoglobin of 6.4. Electrolytes were all within normal limits. CT angiogram that was done on June admission showed no evidence of any pulmonary embolism. Patchy alveolar opacity/infiltrate/atelectasis in the right middle lobe. Some limited airspace in lung bases more so on the right. Left upper lobe pulmonary nodule measuring 10 mm in size and another subsided lesion 11 mm in size in the left lower lobe. COVID-19 PCR is positive -- Patient continues to saturate well on 2 L per nasal cannula - Hemoglobin is at 7.5 this morning down from 8.4 after transfusion with 2 units packed RBCs; stool occult blood and iron studies are ordered; patient remains on IV Protonix Patient has been placed on oral nystatin by ID; patient has been evaluated by cardiology; repeat EKG shows sinus tachycardia which is consistent with infection; troponin remained stable and no ischemic changes on EKG - Patient remains on IV Lasix for CHF exacerbation - ID on board Objective - Vital Signs Vital signs: Vital Signs Temp 97.9 F 06/24/23 11:35 Pulse 102 H 06/24/23 11:35 Resp 20 06/24/23 11:35 BP 131/61 06/24/23 11:35 Pulse Ox 97 06/24/23 11:35 FiO2 Intake & Output 06/23/23 06/24/23 06/24/23 18:59 06:59 18:59 Intake Total 720 550 660 Output Total 1000 100 200 Balance -280 450 460 Weight 54.431 kg 53.2 kg Intake: IV 10 Invasive Line 1 10 Oral 720 540 660 Output: Urine 1000 100 200 Other: Voiding Method External Catheter External Catheter External Catheter - Exam PHYSICAL EXAMINATION: GENERAL: The patient is alert and oriented x3, not in any acute distress. Well developed, well nourished. HEENT: Pupils are round and equally reacting to light. EOMI. No scleral icterus. No conjunctival pallor. Normocephalic, atraumatic. No pharyngeal erythema. No thyromegaly. CARDIOVASCULAR: S1 and S2 present. No murmurs, rubs, or gallops. PULMONARY: Chest is clear to auscultation, no wheezing or crackles. ABDOMEN: Soft, nontender, nondistended, normoactive bowel sounds. No palpable organomegaly. MUSCULOSKELETAL: No joint swelling or deformity. EXTREMITIES: No cyanosis, clubbing, or pedal edema. NEUROLOGICAL: Gross neurological examination did not reveal any focal deficits. SKIN: No rashes. - Labs CBC & Chem 7: 06/24/23 07:39 06/24/23 07:39 Labs: Abnormal Lab Results - Last 24 Hours (Table) 06/23/23 06/23/23 06/23/23 Range/Units 07:57 16:44 20:06 WBC 12.0 H (3.8-10.6) k/uL Hgb 8.7 L (11.4-16.0) gm/dL Hct 29.9 L (34.0-46.0) % MCV 65.3 L (80.0-100.0) fL MCH 19.0 L (25.0-35.0) pg MCHC 29.1 L (31.0-37.0) g/dL RDW 23.2 H (11.5-15.5) % Neutrophils # 11.5 H (1.3-7.7) k/uL Lymphocytes # 0.2 L (1.0-4.8) k/uL Sodium (137-145) mmol/L Carbon Dioxide (22-30) mmol/L BUN (7-17) mg/dL Glucose (74-99) mg/dL POC Glucose (mg/dL) 302 H (70-110) mg/dL Procalcitonin 0.44 H (0.02-0.09) ng/mL 09/17/23 09/17/23 09/17/23 Range/Units 06:07 07:39 11:40 WBC (3.8-10.6) k/uL Hgb (11.4-16.0) gm/dL Hct (34.0-46.0) % MCV (80.0-100.0) fL MCH (25.0-35.0) pg MCHC (31.0-37.0) g/dL RDW (11.5-15.5) % Neutrophils # (1.3-7.7) k/uL Lymphocytes # (1.0-4.8) k/uL Sodium 135 L (137-145) mmol/L Carbon Dioxide 32 H (22-30) mmol/L BUN 18 H (7-17) mg/dL Glucose 158 H (74-99) mg/dL POC Glucose (mg/dL) 191 H 273 H (70-110) mg/dL Procalcitonin (0.02-0.09) ng/mL Assessment and Plan Assessment: 1. COVID-19 infection -- The patient is vaccinated 2 for Covid 19 without any boosters. - Bronchodilator inhaler therapy - Monitor inflammatory markers including pro-calcitonin, LDH, CRP, d-dimer - COVID-19 vitamin cocktail 2. Acute exacerbation COPD; patient is in place on Solu-Medrol 60 mg IV every 6 hours; Symbicort 1604.5 MCG twice a day; DuoNeb nebulizer treatments 4 times a day and when necessary; Spiriva 3 puffs daily; continue home dose of Singulair 10 mg daily 3. Right middle lobe pneumonia; likely superimposed bacterial infection and COVID-19 positive patient; patient doesn't placed on Rocephin 1 g IV daily along with azithromycin; we will monitor CBC, CMP and pro-calcitonin 4. Lung nodule; CTA chest reveals left lower lobe pulmonary nodule 11 mm in size with a solid component of 8 mm 5. Hypertension; continue with home antihypertensive therapy 6. Chronic tobacco abuse; nicotine patch 21 mg per 24 hours DVT prophylaxis; SCDs/subcu Lovenox CODE STATUS; full code
[2023-06-24 18:35] LABS: % Iron Saturation 9.12 (12.00-45.00)
[2023-06-24 20:04] LABS: Glucose,Whole Blood 281 mg/dL (70-110)
[2023-06-25] MEDS: ALPRAZolam 0.5 MG TAB PO PRN ×2 (00:44→20:53)
[2023-06-25] MEDS: methylPREDNISolone SOD SUCCI 125 MG/2 ML VIAL IV SCH ×4 (05:59→23:45)
[2023-06-25 06:28] LABS: Glucose,Whole Blood 210 mg/dL (70-110)
[2023-06-25] MEDS: INSULIN ASPART (NovoLOG) 100 UNIT/ML VIAL SQ SCH ×4 (06:35→20:53)
[2023-06-25] MEDS: NICOTINE 14MG/24HR PATCH TRANSDERM SCH (08:21)
[2023-06-25] MEDS: FUROSEMIDE 10 MG/ML 4 ML VIAL IV SCH ×2 (08:23→20:54)
[2023-06-25] MEDS: CHOLECALCIFEROL 25 MCG (1000 IU) TABLET PO SCH (08:23)
[2023-06-25] MEDS: NYSTATIN 100,000 UNIT/ML SUSP 500,000 UNIT/5 ML CUP PO SCH ×4 (08:23→20:56)
[2023-06-25] MEDS: MONTELUKAST 10 MG TAB PO SCH (08:23)
[2023-06-25] MEDS: PANTOPRAZOLE 40 MG/10 ML VIAL IVP SCH ×2 (08:23→20:54)
[2023-06-25] MEDS: ZINC SULFATE 220 MG CAP PO SCH (08:24)
[2023-06-25] MEDS: AZITHROMYCIN 250 MG TAB PO SCH (08:24)
[2023-06-25] MEDS: ASCORBIC ACID 500 MG TAB PO SCH (08:24)
[2023-06-25] MEDS: ALBUTEROL HFA INHALER INHALATION SCH ×4 (08:50→21:40)
[2023-06-25] MEDS: SYMBICORT 160-4.5 MCG INHALER INHALATION SCH ×2 (08:50→21:40)
[2023-06-25] MEDS: TIOTROPIUM 2.5 MCG INHALER INHALATION SCH (08:50)
--- NOTE | 2023-06-25 09:25 | XR ---
EXAMINATION TYPE: XR chest 1V portable DATE OF EXAM: 06/25/2023 7:00 AM CLINICAL INDICATION:Female, 77 years old with history of covid; COMPARISON: Chest radiographs from 06/22/2023 TECHNIQUE: XR chest 1V portable Frontal view of the chest. FINDINGS: Lungs/Pleura: There is no evidence of pleural effusion, focal consolidation, or pneumothorax. Pulmonary vascularity: Unremarkable. Heart/mediastinum: Cardiomediastinal silhouette is unremarkable. Musculoskeletal: No acute osseous pathology. Other findings: None IMPRESSION: 1. Trace bilateral pleural effusions. 2. COPD changes.
[2023-06-25 09:33] LABS: Anisocytosis Marked; Basophils % (A) 0 %; Eosinophils % (A) 0 %; HCT 28.1 % (34.0-46.0); HGB 7.9 gm/dL (11.4-16.0); Hypochromasia Marked; Lymphocytes # (A) 0.4 k/uL (1.0-4.8); Lymphocytes % (A) 4 %; MCH 18.8 pg (25.0-35.0); MCHC 28.2 g/dL (31.0-37.0); MCV 66.7 fL (80.0-100.0); Mean Platelet Volume 7.6; Microcytosis Marked; Monocytes # (A) 0.3 k/uL (0-1.0); Monocytes % (A) 4 %; Neutrophils # (A) 7.1 k/uL (1.3-7.7); Neutrophils % (A) 91 %; Platelet Count 422 k/uL (150-450); Poikilocytosis Marked; RBC 4.21 m/uL (3.80-5.40); WBC 7.9 k/uL (3.8-10.6)
[2023-06-25 10:08] LABS: African American GFR (CKD) 66 (>60 ml/min/1.73 sqM); Anion Gap 8 mmol/L; Blood Urea Nitrogen 22 mg/dL (7-17); Calcium 8.6 mg/dL (8.4-10.2); Carbon Dioxide 35 mmol/L (22-30); Chloride 96 mmol/L (98-107); Glucose 184 mg/dL (74-99); Non-African American GFR(CKD) 57 (>60 ml/min/1.73 sqM); Potassium 3.5 mmol/L (3.5-5.1); Sodium 139 mmol/L (137-145)
[2023-06-25 11:29] LABS: Glucose,Whole Blood 161 mg/dL (70-110)
--- NOTE | 2023-06-25 13:37 | P.PN ---
Subjective Progress Note Date: 06/25/23 Principal diagnosis: Acute COVID-19 pneumonia, possible superimposed bacterial pneumonia This is a 77-year-old female patient with advanced oxygen-dependent COPD agosto been followed up in our office regarding her COPD. The patient is a chronic smoker. The patient has been vaccinated for Covid 19 infection. Covid 19 infection was present in several family members and the patient was infected and infection was confirmed on 06/15/20. The patient's progressively getting m ore short of breath and she ended up coming into the hospital because of worsening shortness of breath, diminished appetite, diminished oral intake, cough congestion chest tightness and wheeze. Her blood work shows a little discomfort of 14.3, hemoglobin is at 8.4 after being given a unit of packed RBC for a admission hemoglobin of 6.4. She is microcytic. She could be potentially deficient. Electrolytes were all within normal limits. The patient is currently on oxygen at 2 L with a pulse ox of 97%. A CT angiogram that was done on June admission showed no evidence of any pulmonary embolism. Patchy alveolar opacity/infiltrate/atelectasis in the right middle lobe. Some limited airspace in lung bases more so on the right. Left upper lobe pulmonary nodule measuring 10 mm in size and another subsided lesion 11 mm in size in the left lower lobe. Note that this is the patient's first Covid 19 infection. On today's evaluation of 06/24/2023, the patient is feeling slightly better. She has developed some thrush and the patient will be placed on nystatin. She remains on Rocephin and Zithromax. She remains on IV Solu-Medrol 60 mg every 6 hours. She remains on Symbicort and Spiriva as maintenance regarding her COPD and albuterol HFA on as-needed basis. The patient is a BUN of 18 with a creatinine of 0.9 his sodium was at 135. The pro-calcitonin level was 0.44. LDH level was 217. Patient was seen today on 06/25/2023, feeling better, patient is familiar to my service, I have seen her in the past for COPD, the last time I saw this patient back in September of 2022. Patient is on home oxygen for COPD, she was admitted this time with Covid 19 infection, right middle lobe pneumonia is strongly suspected, and her pro calcitonin level was 0.44, hence the concern about b acterial pneumonia is raised. Hence the patient is receiving antibiotics in addition to the COVID-19 cocktail. Feeling better, breathing easier, nonetheless she continues to have some intermittent episodes of cough and wheezing. WBC count today is 7.9 hemoglobin is 7.9 electrolytes are normal therese al profile is normal chest x-ray is showing definite improvement in her right middle lobe pneumonia she does have trace of bilateral pleural effusions and COPD changes Objective - Vital Signs Vital signs: Vital Signs Temp 97.5 F L 06/25/23 12:00 Pulse 98 06/25/23 12:00 Resp 22 06/25/23 12:00 BP 133/63 06/25/23 12:00 Pulse Ox 90 L 06/25/23 12:00 FiO2 Intake & Output 06/24/23 06/25/23 06/25/23 18:59 06:59 18:59 Intake Total 900 240 138 Output Total 400 725 400 Balance 500 -485 -262 Weight 53 kg Intake: IV 20 Invasive Line 1 10 Invasive Line 2 10 Oral 900 240 118 Output: Urine 400 725 400 Other: Voiding Method External Catheter External Catheter External Catheter - Exam Physical Exam: Revealed a 77-year-old female in no distress, on 2 L nasal cannula O2 saturations 90-96% Head: Atraumatic, normocephalic. HEENT:[Neck is supple.] [No neck masses.] [No thyromegaly.] [No JVD.] Chest: [Fine wheezing noted bilaterally on forced expiratory maneuver Cardiac Exam: [Normal S1 and S2, no S3 gallop, no murmur.] Abdomen: [Soft, nontender, no megaly, no rebound, no guarding, normal bowel sounds.] Extremities: [No clubbing, no edema, no cyanosis.] Neurological Exam: [No focal neurologic deficit.] Alert oriented 3 no gross focal neurologic deficit Psychiatric: Normal mood, affect and normal mental status examination. Skin: No rashes - Labs CBC & Chem 7: 06/25/23 08:47 06/25/23 08:47 Labs: Abnormal Lab Results - Last 24 Hours (Table) 06/23/23 06/24/23 06/24/23 Range/Units 07:57 16:27 20:02 Hgb (11.4-16.0) gm/dL Hct (34.0-46.0) % MCV (80.0-100.0) fL MCH (25.0-35.0) pg MCHC (31.0-37.0) g/dL RDW (11.5-15.5) % Lymphocytes # (1.0-4.8) k/uL Chloride (98-107) mmol/L Carbon Dioxide (22-30) mmol/L BUN (7-17) mg/dL Glucose (74-99) mg/dL POC Glucose (mg/dL) 125 H 281 H (70-110) mg/dL Iron 32 L (50-170) UG/DL % Saturation 9.12 L (12.00-45.00) 06/25/23 06/25/23 06/25/23 Range/Units 06:26 08:47 08:47 Hgb 7.9 L (11.4-16.0) gm/dL Hct 28.1 L (34.0-46.0) % MCV 66.7 L (80.0-100.0) fL MCH 18.8 L (25.0-35.0) pg MCHC 28.2 L (31.0-37.0) g/dL RDW 24.0 H (11.5-15.5) % Lymphocytes # 0.4 L (1.0-4.8) k/uL Chloride 96 L (98-107) mmol/L Carbon Dioxide 35 H (22-30) mmol/L BUN 22 H (7-17) mg/dL Glucose 184 H (74-99) mg/dL POC Glucose (mg/dL) 210 H (70-110) mg/dL Iron (50-170) UG/DL % Saturation (12.00-45.00) 06/25/23 Range/Units 11:27 Hgb (11.4-16.0) gm/dL Hct (34.0-46.0) % MCV (80.0-100.0) fL MCH (25.0-35.0) pg MCHC (31.0-37.0) g/dL RDW (11.5-15.5) % Lymphocytes # (1.0-4.8) k/uL Chloride (98-107) mmol/L Carbon Dioxide (22-30) mmol/L BUN (7-17) mg/dL Glucose (74-99) mg/dL POC Glucose (mg/dL) 161 H (70-110) mg/dL Iron (50-170) UG/DL % Saturation (12.00-45.00) Microbiology - Last 24 Hours (Table) 06/23/23 03:13 Blood Culture - Preliminary Blood 06/23/23 02:58 Blood Culture - Preliminary Blood 06/23/23 20:18 Gram Stain - Preliminary Sputum Sputum Culture - Preliminary Delia albicans Assessment and Plan Assessment: Impression: Acute COVID-19 infection, initially confirmed on 06/15/2023, patient is vaccinated 2. No blisters. Acute exacerbation of COPD Right middle lobe pneumonia, acute, suspect superimposed bacterial pneumonia/c ommunity-acquired pneumonia Advanced COPD Tobacco dependence syndrome Bilateral pulmonary nodules one in the left upper lobe 1 cm, and left lower lobe 11 mm it needs follow-up. Benign essential hypertension Generalized anxiety disorder Oropharyngeal candidiasis Recommendation: Continue COVID-19 cocktail Continue antibiotics/Rocephin and Zithromax Continue steroids/IV Solu-Medrol and bronchodilators including Symbicort patient is normally on Trelegy Ellipta at home. Counseled regarding smoking cessation Nicotine patches Titrate oxygen accordingly Outpatient follow-up on her pulmonary nodules although the patient is not a good surgical candidate. We will continue to follow possible discharge planning in the next 24 hours Time with Patient: Less than 30
[2023-06-25 16:29] LABS: Glucose,Whole Blood 223 mg/dL (70-110)
--- NOTE | 2023-06-25 18:04 | P.PN ---
Subjective Progress Note Date: 06/25/23 This is a 77 year old male admitted for COPD exacerbation also found to be covid positive. Does wear home oxygen. Continues with scattered wheezing today. Patient is continued on IV ceftriaxone, PO azithromycin, IV solumedrol. Patient has also been started on oral nystatin. Patients chest xray today is showing trace bilateral pleural effusions. Patient is being diuresed with IV lasix Q12. Cardiology was consulted for sinus tachycardia which was attributed to infection. Heart rate is now improved in the 90s and they have signed off. She is wondering if she is close to discharge yet, has not gotten out of bed and PT/OT will be consulted. Labs today reveal white count 7.9, hgb 7.9, sodium 139, BUN 22, creatinine 0.96. Blood glucose in the 200s. Review of Systems Constitutional: Denied any fatigue denied any fever. Cardio vascular: denied any chest pain, palpitations Gastrointestinal: denied any nausea, vomiting, diarrhea Pulmonary: Reports shortness of breath with exertion, no cough Neurologic denied any new focal deficits Reports weakness All inpatient medications were reviewed and appropriate changes in these medications as dictated in the interval history and assessment and plan. PHYSICAL EXAMINATION: GENERAL: The patient is alert and oriented x3, not in any acute distress. Well developed, well nourished. HEENT: Pupils are round and equally reacting to light. EOMI. No scleral icterus. No conjunctival pallor. Normocephalic, atraumatic. No pharyngeal erythema. No thyromegaly. CARDIOVASCULAR: S1 and S2 present. No murmurs, rubs, or gallops. PULMONARY: Coarse scattered wheezing throughout ABDOMEN: Soft, nontender, nondistended, normoactive bowel sounds. No palpable organomegaly. MUSCULOSKELETAL: No joint swelling or deformity. EXTREMITIES: No cyanosis, clubbing, or pedal edema. NEUROLOGICAL: Gross neurological examination did not reveal any focal deficits. SKIN: No rashes. Assessment and Plan Acute on chronic hypoxemic respiratory failure secondary to acute covid 19 infection and acute COPD exacerbation Right middle lobe pneumonia; likely superimposed bacterial infection and COVID- 19 positive patient Oral thrush on nystatin therapy Lung nodule; CTA chest reveals left lower lobe pulmonary nodule 11 mm in size with a solid component of 8 mm Hypertension; continue with home antihypertensive therapy Chronic tobacco abuse; nicotine patch 21 mg per 24 hours Microcytic anemia iron studies are done Steroid induced hyperglycemia Carotid artery disease with prior carotid endartectomy Anxiety/Depression DVT prophylaxis; SCDs/subcu Lovenox GI prophylaxis; protonix CODE STATUS; full code Plan Patient remains on bronchodilators, IV solumedrol,antibiotic coverage with ceftriaxone and azithromycin. Remains on nystatin. Remains on oxygen support. PT/OT have been consulted to increase patients activity level and DC rec ommendations Continue on nicotine patch Patient is on COVID vitamin support The impression and plan of care has been dictated by Enedina Martins, Nurse Practitioner as directed. Dr. Marylou MD I have performed a history and physical examination and medical decision making of this patient, discussed the same with the dictator, and agree with the dictators assessment and plan as written, documented as a scribe. Based on total visit time, I have performed more than 50% of this visit. Objective - Vital Signs Vital signs: Vital Signs Temp 97.6 F 06/25/23 08:00 Pulse 93 06/25/23 08:00 Resp 24 06/25/23 08:00 BP 159/70 06/25/23 08:00 Pulse Ox 96 06/25/23 08:50 FiO2 Intake & Output 06/24/23 06/25/23 06/25/23 18:59 06:59 18:59 Intake Total 900 240 138 Output Total 400 725 Balance 500 -485 138 Weight 53 kg Intake: IV 20 Invasive Line 1 10 Invasive Line 2 10 Oral 900 240 118 Output: Urine 400 725 Other: Voiding Method External Catheter External Catheter - Labs CBC & Chem 7: 06/25/23 08:47 06/25/23 08:47 Labs: Abnormal Lab Results - Last 24 Hours (Table) 06/23/23 06/24/23 06/24/23 Range/Units 07:57 07:39 07:39 Hgb 7.5 L (11.4-16.0) gm/dL Hct 26.5 L (34.0-46.0) % MCV 66.6 L (80.0-100.0) fL MCH 18.7 L (25.0-35.0) pg MCHC 28.1 L (31.0-37.0) g/dL RDW 23.4 H (11.5-15.5) % Lymphocytes # 0.4 L (1.0-4.8) k/uL POC Glucose (mg/dL) (70-110) mg/dL Iron 32 L (50-170) UG/DL % Saturation 9.12 L (12.00-45.00) Procalcitonin 0.57 H (0.02-0.09) ng/mL 06/24/23 06/24/23 06/24/23 Range/Units 11:40 16:27 20:02 Hgb (11.4-16.0) gm/dL Hct (34.0-46.0) % MCV (80.0-100.0) fL MCH (25.0-35.0) pg MCHC (31.0-37.0) g/dL RDW (11.5-15.5) % Lymphocytes # (1.0-4.8) k/uL POC Glucose (mg/dL) 273 H 125 H 281 H (70-110) mg/dL Iron (50-170) UG/DL % Saturation (12.00-45.00) Procalcitonin (0.02-0.09) ng/mL 06/25/23 06/25/23 Range/Units 06:26 08:47 Hgb 7.9 L (11.4-16.0) gm/dL Hct 28.1 L (34.0-46.0) % MCV 66.7 L (80.0-100.0) fL MCH 18.8 L (25.0-35.0) pg MCHC 28.2 L (31.0-37.0) g/dL RDW 24.0 H (11.5-15.5) % Lymphocytes # 0.4 L (1.0-4.8) k/uL POC Glucose (mg/dL) 210 H (70-110) mg/dL Iron (50-170) UG/DL % Saturation (12.00-45.00) Procalcitonin (0.02-0.09) ng/mL Microbiology - Last 24 Hours (Table) 06/23/23 03:13 Blood Culture - Preliminary Blood 06/23/23 02:58 Blood Culture - Preliminary Blood Assessment and Plan Time with Patient: Less than 30
[2023-06-25 19:58] LABS: Glucose,Whole Blood 234 mg/dL (70-110)
[2023-06-25] MEDS ORDERED: ACETAMINOPHEN ORAL SUSP (PEDS) 3,840 MG/120 ML BOTTLE PO PRN (22:52)
[2023-06-26] MEDS: methylPREDNISolone SOD SUCCI 125 MG/2 ML VIAL IV SCH (05:23)
[2023-06-26 06:24] LABS: Glucose,Whole Blood 138 mg/dL (70-110)
[2023-06-26] MEDS: INSULIN ASPART (NovoLOG) 100 UNIT/ML VIAL SQ SCH ×2 (06:33→12:56)
[2023-06-26] MEDS: ALBUTEROL HFA INHALER INHALATION SCH ×2 (08:05→11:10)
[2023-06-26] MEDS: TIOTROPIUM 2.5 MCG INHALER INHALATION SCH (08:05)
[2023-06-26] MEDS: SYMBICORT 160-4.5 MCG INHALER INHALATION SCH (08:05)
[2023-06-26] MEDS: NYSTATIN 100,000 UNIT/ML SUSP 500,000 UNIT/5 ML CUP PO SCH ×2 (08:56→12:56)
[2023-06-26] MEDS: FUROSEMIDE 10 MG/ML 4 ML VIAL IV SCH (08:56)
[2023-06-26] MEDS: PANTOPRAZOLE 40 MG/10 ML VIAL IVP SCH (08:56)
[2023-06-26] MEDS: AZITHROMYCIN 250 MG TAB PO SCH (08:57)
[2023-06-26] MEDS: MONTELUKAST 10 MG TAB PO SCH (08:57)
[2023-06-26] MEDS: NICOTINE 14MG/24HR PATCH TRANSDERM SCH (08:57)
[2023-06-26] MEDS: ZINC SULFATE 220 MG CAP PO SCH (09:20)
[2023-06-26] MEDS: ASCORBIC ACID 500 MG TAB PO SCH (09:20)
[2023-06-26] MEDS: CHOLECALCIFEROL 25 MCG (1000 IU) TABLET PO SCH (09:20)
[2023-06-26 09:56] LABS: Anisocytosis Marked; Basophils % (A) 0 %; Eosinophils % (A) 0 %; HCT 29.5 % (34.0-46.0); HGB 8.3 gm/dL (11.4-16.0); Hypochromasia Marked; Lymphocytes # (A) 0.4 k/uL (1.0-4.8); Lymphocytes % (A) 5 %; MCHC 28.1 g/dL (31.0-37.0); MCV 67.4 fL (80.0-100.0); Mean Platelet Volume 8.1; Microcytosis Marked; Monocytes # (A) 0.2 k/uL (0-1.0); Monocytes % (A) 3 %; Neutrophils # (A) 7.2 k/uL (1.3-7.7); Neutrophils % (A) 91 %; Platelet Count 443 k/uL (150-450); Poikilocytosis Moderate; RBC 4.38 m/uL (3.80-5.40); RDW 24.6 % (11.5-15.5); WBC 7.9 k/uL (3.8-10.6)
[2023-06-26 10:04] LABS: African American GFR (CKD) 70 (>60 ml/min/1.73 sqM); Blood Urea Nitrogen 28 mg/dL (7-17); Calcium 8.7 mg/dL (8.4-10.2); Chloride 93 mmol/L (98-107); Glucose 112 mg/dL (74-99); Magnesium 1.7 mg/dL (1.6-2.3); Non-African American GFR(CKD) 61 (>60 ml/min/1.73 sqM); Potassium 3.9 mmol/L (3.5-5.1); Sodium 138 mmol/L (137-145)
[2023-06-26 10:12] LABS: Anion Gap 10 mmol/L
[2023-06-26 10:21] LABS: Carbon Dioxide 35 mmol/L (22-30)
[2023-06-26 12:06] LABS: Glucose,Whole Blood 179 mg/dL (70-110)
--- NOTE | 2023-06-26 12:48 | P.PN ---
Subjective Progress Note Date: 06/26/23 Principal diagnosis: Acute COVID-19 pneumonia, possible superimposed bacterial pneumonia This is a 77-year-old female patient with advanced oxygen-dependent COPD agosto been followed up in our office regarding her COPD. The patient is a chronic smoker. The patient has been vaccinated for Covid 19 infection. Covid 19 infection was present in several family members and the patient was infected and infection was confirmed on 06/15/20. The patient's progressively getting m ore short of breath and she ended up coming into the hospital because of worsening shortness of breath, diminished appetite, diminished oral intake, cough congestion chest tightness and wheeze. Her blood work shows a little discomfort of 14.3, hemoglobin is at 8.4 after being given a unit of packed RBC for a admission hemoglobin of 6.4. She is microcytic. She could be potentially deficient. Electrolytes were all within normal limits. The patient is currently on oxygen at 2 L with a pulse ox of 97%. A CT angiogram that was done on June admission showed no evidence of any pulmonary embolism. Patchy alveolar opacity/infiltrate/atelectasis in the right middle lobe. Some limited airspace in lung bases more so on the right. Left upper lobe pulmonary nodule measuring 10 mm in size and another subsided lesion 11 mm in size in the left lower lobe. Note that this is the patient's first Covid 19 infection. On today's evaluation of 06/24/2023, the patient is feeling slightly better. She has developed some thrush and the patient will be placed on nystatin. She remains on Rocephin and Zithromax. She remains on IV Solu-Medrol 60 mg every 6 hours. She remains on Symbicort and Spiriva as maintenance regarding her COPD and albuterol HFA on as-needed basis. The patient is a BUN of 18 with a creatinine of 0.9 his sodium was at 135. The pro-calcitonin level was 0.44. LDH level was 217. Patient was seen today on 06/25/2023, feeling better, patient is familiar to my service, I have seen her in the past for COPD, the last time I saw this patient back in September of 2022. Patient is on home oxygen for COPD, she was admitted this time with Covid 19 infection, right middle lobe pneumonia is strongly suspected, and her pro calcitonin level was 0.44, hence the concern about b acterial pneumonia is raised. Hence the patient is receiving antibiotics in addition to the COVID-19 cocktail. Feeling better, breathing easier, nonetheless she continues to have some intermittent episodes of cough and wheezing. WBC count today is 7.9 hemoglobin is 7.9 electrolytes are normal therese al profile is normal chest x-ray is showing definite improvement in her right middle lobe pneumonia she does have trace of bilateral pleural effusions and COPD changes Reevaluated today on 06/26/2023, patient continues to do well, she is relatively asymptomatic, on 2 L nasal cannula and her O2 sats is 97%, patient is hemodynamically stable, on physical examination she had very minimal wheezing on forced expiratory maneuver otherwise the patient has no significant findings, and I believe the patient should be considered for discharge planning and follow-up on outpatient basis within a week. Patient does have home oxygen she is already on bronchodilators at home, and she could be seen within a week in my office for follow-up. Labs today were basically unremarkable. Electrolytes are normal renal profile is normal bicarb is 35 CBC is relatively normal hemoglobin is 8.3., Remains stable Objective - Vital Signs Vital signs: Vital Signs Temp 98.1 F 06/26/23 08:00 Pulse 81 06/26/23 08:00 Resp 20 06/26/23 08:00 BP 158/75 06/26/23 08:00 Pulse Ox 97 06/26/23 08:00 FiO2 Intake & Output 06/25/23 06/26/23 06/26/23 18:59 06:59 18:59 Intake Total 256 364 Output Total 850 850 Balance -594 -850 364 Intake: IV 20 10 Invasive Line 1 10 10 Invasive Line 2 10 Oral 236 354 Output: Urine 850 850 Other: Voiding Method External Catheter External Catheter External Catheter - Exam Physical Exam: Revealed a 77-year-old female in no distress, on 2 L nasal cannula Head: Atraumatic, normocephalic. HEENT:[Neck is supple.] [No neck masses.] [No thyromegaly.] [No JVD.] Chest: [Fine wheezing noted, on forced expiratory maneuver. Otherwise good and decent airflow bilaterally. Cardiac Exam: [Normal S1 and S2, no S3 gallop, no murmur.] Abdomen: [Soft, nontender, no megaly, no rebound, no guarding, normal bowel sounds.] Extremities: [No clubbing, no edema, no cyanosis.] Neurological Exam: [No focal neurologic deficit.] Alert oriented 3 no gross focal neurologic deficit Psychiatric: Normal mood, affect and normal mental status examination. Skin: No rashes - Labs CBC & Chem 7: 06/26/23 09:07 06/26/23 09:07 Labs: Abnormal Lab Results - Last 24 Hours (Table) 06/25/23 06/25/23 06/26/23 Range/Units 16:28 19:56 06:22 Hgb (11.4-16.0) gm/dL Hct (34.0-46.0) % MCV (80.0-100.0) fL MCH (25.0-35.0) pg MCHC (31.0-37.0) g/dL RDW (11.5-15.5) % Lymphocytes # (1.0-4.8) k/uL Chloride (98-107) mmol/L Carbon Dioxide (22-30) mmol/L BUN (7-17) mg/dL Glucose (74-99) mg/dL POC Glucose (mg/dL) 223 H 234 H 138 H (70-110) mg/dL 06/26/23 06/26/23 06/26/23 Range/Units 09:07 09:07 12:04 Hgb 8.3 L (11.4-16.0) gm/dL Hct 29.5 L (34.0-46.0) % MCV 67.4 L (80.0-100.0) fL MCH 19.0 L (25.0-35.0) pg MCHC 28.1 L (31.0-37.0) g/dL RDW 24.6 H (11.5-15.5) % Lymphocytes # 0.4 L (1.0-4.8) k/uL Chloride 93 L (98-107) mmol/L Carbon Dioxide 35 H (22-30) mmol/L BUN 28 H (7-17) mg/dL Glucose 112 H (74-99) mg/dL POC Glucose (mg/dL) 179 H (70-110) mg/dL Microbiology - Last 24 Hours (Table) 06/23/23 03:13 Blood Culture - Preliminary Blood 06/23/23 02:58 Blood Culture - Preliminary Blood 06/23/23 20:18 Gram Stain - Preliminary Sputum Sputum Culture - Preliminary Delia albicans Assessment and Plan Assessment: Impression: Acute COVID-19 infection, initially confirmed on 06/15/2023, patient is vaccinated 2. No blisters. Acute exacerbation of COPD Right middle lobe pneumonia, acute, suspect superimposed bacterial pneumonia/community-acquired pneumonia Advanced COPD Tobacco dependence syndrome Bilateral pulmonary nodules one in the left upper lobe 1 cm, and left lower lobe 11 mm it needs follow-up. Benign essential hypertension Generalized anxiety disorder Oropharyngeal candidiasis Recommendation: Transition patient to oral antibiotics/Zithromax Change Solu-Medrol to prednisone burst and taper over the next 2 weeks Counseled regarding smoking cessation Nicotine patches Will clear the patient to be discharged home tomorrow and should have follow-up with me on outpatient basis. Outpatient follow-up on her pulmonary nodules although the patient is not a good surgical candidate. Time with Patient: Less than 30
[2023-06-26 13:36] VITALS: BMI 21.3
[2023-06-26 15:27] VITALS: BP 137/65; RESP 18; TEMP 97.8
[2023-06-26 16:26] VITALS: PULSE 89
[2023-06-27] MEDS ORDERED: predniSONE 20 MG TAB PO SCH (09:00)
--- NOTE | 2023-06-28 07:52 | P.DS ---
Providers Date of admission: 06/23/23 05:07 Attending physician: Iliana Camarena Consults: 06/23/23 05:07 Consult Physician Routine Consulting Provider: Homar Prabhakar Consult Reason/Comments: COPD exas, CAP, COVID 19 Do you want consulting provider notified?: Yes, Notify in am Primary care physician: Minister[facility] Hospital Course: Final Diagnosis Acute on chronic hypoxemic respiratory failure secondary to acute covid 19 infection and acute COPD exacerbation Right middle lobe pneumonia; likely superimposed bacterial infection and COVID- 19 positive patient Oral thrush on nystatin therapy Anemia under investigation required 1 unit PRBC for hgb 6.4 on admission. Hyponatremia hypervolemic improved with IV lasix Lung nodule; CTA chest reveals left lower lobe pulmonary nodule 11 mm in size with a solid component of 8 mm Hypertension; continue with home antihypertensive therapy Chronic tobacco abuse; nicotine patch 21 mg per 24 hours Microcytic anemia iron studies are done Steroid induced hyperglycemia Carotid artery disease with prior carotid endartectomy Anxiety/Depression Discharge Disposition Patient is stable for discharge home. Patient has been cleared by pulmonary. Patient is started on oral prednisone burst and taper. Patient has been discharged on course of oral ceftin to complete oral antibiotic therapy. Also continued on nystatin oral swish for 5 more days. Continue on same home oxygen dose. Follow up includes Dr. Gomez, Dr Wick, adn PCP Dr. Iglesias. Repeat labs in 2 to 3 days Hospital Course This is a 77 year old female with medical history of COPD, hypertension, prior carotid endartectomy, hypertension. Comes in for shortness of breath. The patient did state that she was recently diagnosed with COVID-19 last week and stated that she had increasing shortness of breath today with productive cough. The patient also stated that she spiked a fever today at home. The patient did state that she had increased her oxygen requirements above her normal 2 L of O2. The patient did receive a breathing treatment by EMS during transport and on arrival did state that the symptoms were improved. The patient herself did state that she still continued to feel body aches as well as chills. The patient denied any other acute pain or complaints at this time. Admitted for COPD exacerbation also found to be covid positive by PCR. Pulmonary consulted. Does wear home oxygen. Patient was also found to have low hemoglobin of 6.4 and required 1 unit of PRBC transfusion. CT angiogram that was done on Thu admission showed no evidence of any pulmonary embolism. Patchy alveolar opacity/infiltrate/atelectasis in the right middle lobe. Some limited airspace in lung bases more so on the right. Left upper lobe pulmonary nodule measuring 10 mm in size and another subsided lesion 11 mm in size in the left lower lobe. Patient was treated with IV ceftriaxone, PO azithromycin, IV solumedrol. Patient has also been started on oral nystatin. Patients chest xray is showing trace bilateral pleural effusions. Patient is being diuresed with IV lasix Q12. Cardiology was consulted for sinus tachycardia which was attributed to infection. Echocardiogram done showing EF 50-55% with aortic valve sclerosis. Heart rate is now improved in the 90s and they have signed off. PT/OT will be consulted and patient was cleared for discharge home with homecare. White count 7.9, hemoglobin 8.3, renal function stable, sodium 138. Patient is currently denying chest pain. Having mild shortness of breath with ambulation but at baseline. Has some scattered wheezing. Overall improved. Pulmonary has cleared for discharge. Above mentioned recommendations in place. Please see medication reconciliation for a list of current medications. Thank you for allowing us to participate in the care of this patient. The impression and plan of care has been dictated by Enedina Martins, Nurse Practitioner as directed. Dr. Marylou MD I have performed a history and physical examination and medical decision making of this patient, discussed the same with the dictator, and agree with the dictators assessment and plan as written, documented as a scribe. Based on total visit time, I have performed more than 50% of this visit. Patient Condition at Discharge: Fair Plan - Discharge Summary New Discharge Prescriptions: New Nicotine 14Mg/24Hr Patch [Habitrol] 1 patch TRANSDERM DAILY #7 patch Zinc Sulfate [Orazinc] 220 mg PO DAILY #20 cap Cholecalciferol [Vitamin D3 (25 Mcg = 1000 Iu)] 50 mcg PO DAILY #20 tab Famotidine [Pepcid] 20 mg PO DAILY #30 tablet Olmesartan [Benicar] 20 mg PO DAILY #30 tab Nystatin 100,000 Unit/ml Susp [Mycostatin Oral Susp] 500,000 unit PO QID 5 Days #150 ml predniSONE 0 mg PO DIRECTED 14 Days #38 tab Ascorbic Acid [Vitamin C] 500 mg PO DAILY #20 tab cefUROXime axetiL [Ceftin] 500 mg PO BID 5 Days #10 tab Continue Ipratropium-Albuterol Nebulize [Duoneb 0.5 mg-3 mg/3 ml Soln] 3 ml INHALATION RT-Q6H Ibuprofen [Motrin Ib] 200 mg PO Q8H PRN PRN Reason: Pain Or Fever > 100.5 Montelukast [Singulair] 10 mg PO DAILY ALPRAZolam [Xanax] 0.5 mg PO BID PRN PRN Reason: Anxiety Budesonide [Pulmicort] 0.5 mg INHALATION RT-BID Furosemide [Lasix] 40 mg PO DAILY Cyclobenzaprine [Flexeril] 10 mg PO BID PRN PRN Reason: Muscle Pain Albuterol Inhaler [Ventolin Hfa Inhaler] 1 - 2 puff INHALATION RT-Q6H PRN PRN Reason: Shortness Of Breath Discontinued diphenhydrAMINE [Benadryl] 25 mg PO QID PRN PRN Reason: Allergy Symptoms Olmesartan/Hydrochlorothiazide [Olmesartan-Hctz 40-25 mg Tab] 1 tab PO DIRECTED PRN PRN Reason: ONLY WHEN NOT ON LASIX Discharge Medication List ALPRAZolam [Xanax] 0.5 mg PO BID PRN 09/29/20 [History] Budesonide [Pulmicort] 0.5 mg INHALATION RT-BID 09/29/20 [History] Ibuprofen [Motrin Ib] 200 mg PO Q8H PRN 09/29/20 [History] Ipratropium-Albuterol Nebulize [Duoneb 0.5 mg-3 mg/3 ml Soln] 3 ml INHALATION RT-Q6H 09/29/20 [History] Montelukast [Singulair] 10 mg PO DAILY 09/29/20 [History] Albuterol Inhaler [Ventolin Hfa Inhaler] 1 - 2 puff INHALATION RT-Q6H PRN 06/23/23 [History] Cyclobenzaprine [Flexeril] 10 mg PO BID PRN 06/23/23 [History] Furosemide [Lasix] 40 mg PO DAILY 06/23/23 [History] Ascorbic Acid [Vitamin C] 500 mg PO DAILY #20 tab 06/26/23 [Rx] Cholecalciferol [Vitamin D3 (25 Mcg = 1000 Iu)] 50 mcg PO DAILY #20 tab 06/26/23 [Rx] Famotidine [Pepcid] 20 mg PO DAILY #30 tablet 06/26/23 [Rx] Nicotine 14Mg/24Hr Patch [Habitrol] 1 patch TRANSDERM DAILY #7 patch 06/26/23 [Rx] Nystatin 100,000 Unit/ml Susp [Mycostatin Oral Susp] 500,000 unit PO QID 5 Days #150 ml 06/26/23 [Rx] Olmesartan [Benicar] 20 mg PO DAILY #30 tab 06/26/23 [Rx] Zinc Sulfate [Orazinc] 220 mg PO DAILY #20 cap 06/26/23 [Rx] cefUROXime axetiL [Ceftin] 500 mg PO BID 5 Days #10 tab 06/26/23 [Rx] predniSONE 0 mg PO DIRECTED 14 Days #38 tab 06/26/23 [Rx] Follow up Appointment(s)/Referral(s): Bella Gomez MD [STAFF PHYSICIAN] - 07/12/23 9:00 am Senait Wick DO [STAFF PHYSICIAN] - 07/18/23 10:30 am [facility], [NON-STAFF] - 1-2 Days (Home care will call you to set up appointment ) Ministerio Iglesias DO [Primary Care Provider] - 1 Week (office will call you to make appointment ) Ambulatory/Diagnostic Orders: Basic Metabolic Panel [LAB.AMB] Location: None Selected Complete Blood Count w/diff [LAB.AMB] Time Frame: 3 Days, Location: None Selected Patient Instructions/Handouts: Heart Failure (DC), COPD (Chronic Obstructive Pulmonary Disease) (DC), Community Acquired Pneumonia (DC) Activity/Diet/Wound Care/Special Instructions: Continue on home oxygen as prior Continue on oral prednisone burst and taper for the next 14 days Continue antibiotics for 5 more days See primary provider in 1 to 2 days Follow up with pulmonary services. Discharge Disposition: HOME WITH HOME HEALTH SERVICES
--- NOTE | 2023-06-28 20:30 | CDI ---
Documentation Clarification Form Date: 06/28/2023 08:12:55 PM From: Vashti Luu RN, CCDS Email: [email or web address] Admit Date: 06/23/2023 05:07:00 AM Patient Name: Bindu Canela Visit Number: [id number] Discharge Date: 06/26/2023 04:50:00 PM ATTENTION: The Clinical Documentation Specialists (CDI) and [facility] Coding Staff appreciate your assistance in clarifying documentation. Please respond to the clarification below the line at the bottom and electronically sign. The CDI & [facility] Coding staff will review the response and follow-up if needed. Please note: Queries are made part of the Legal Health Record. If you have any questions, please contact the author of this message via ITS. Dr. Daniella Johnson The patient had Covid-19 and SIRS criteria. Based on this information and the findings below, is there an additional diagnosis that is clinically appropriate for this patient? History/Risk Factors: COPD and HTN. Recent diagnosis of Covid. Spiked fever at home with cough and dyspnea. Admitted with Covid 19, acute hypoxic respiratory failure and right middle lobe pneumonia; likely superimposed bacterial infection. Clinical Indicators: H&P: "Right middle lobe pneumonia; likely superimposed bacterial infection and COVID-19 positive." 06/22-06/24 WBC: 11.0-14.3-12.0-6.8 06/23 Lactic acid: 1.6 06/23 Sputum culture: que albicans and glabrata 06/23 Vital signs: HR 107, RR 22, BP 85/51, pox 90% Treatment: supplemental oxygen Antibiotics: IV Azithromycin 500mg x1 on 06/23 then 500mg po daily; IV Rocephin 1000mg IVP x1 on 06/23 then 1gm Q24H 06/24-06/26 Is there an additional diagnosis that is clinically appropriate for this patient? [ ] Sepsis, present on admission [ ] Other, please specify [ ] Unable to determine SIRS Criteria: 2 or more of the following may indicate SIRS Temperature < 96.8F (36C) or > 101.0F (38.3C) Heart Rate > 90 bpm Respiratory Rate > 20 breaths/min or PaCO2 < 32 mmHg White Blood Cell Count > 12,000 or < 4,000 cells/mm3 or > 10% bands MTDD
== END 2023-06-26 16:50 | disposition home health service (06) | DRG 177 ==
LOC: EC 22:42 → 3SCARD 06-23 05:07
PROVIDERS: ADMIT Hospitalist; ATTEND Hospitalist
PROC: 3E0F7SF Introduction of Other Gas into Respiratory Tract, Via Natural or Artificial Opening (ICD-10-PCS; principal; 2023-06-26)
DX: U07.1 COVID-19 (principal); J12.82 Pneumonia due to coronavirus disease 2019; J15.9 Unspecified bacterial pneumonia; J96.21 Acute and chronic respiratory failure with hypoxia; B37.0 Candidal stomatitis; B37.89 Other sites of candidiasis; J98.11 Atelectasis; F17.210 Nicotine dependence, cigarettes, uncomplicated; R91.1 Solitary pulmonary nodule; E11.51 Type 2 diabetes mellitus with diabetic peripheral angiopathy without gangrene; I11.0 Hypertensive heart disease with heart failure; I50.9 Heart failure, unspecified; I65.29 Occlusion and stenosis of unspecified carotid artery; R00.0 Tachycardia, unspecified; T38.0X5A Adverse effect of glucocorticoids and synthetic analogues, initial encounter; J43.9 Emphysema, unspecified; F41.1 Generalized anxiety disorder; Z79.02 Long term (current) use of antithrombotics/antiplatelets; Z79.51 Long term (current) use of inhaled steroids; Z79.899 Other long term (current) drug therapy; D50.0 Iron deficiency anemia secondary to blood loss (chronic); Z82.49 Family history of ischemic heart disease and other diseases of the circulatory system; Z99.81 Dependence on supplemental oxygen; X58.XXXA Exposure to other specified factors, initial encounter; Z88.0 Allergy status to penicillin; Z88.5 Allergy status to narcotic agent
CPT/HCPCS: 36415; 71045; 71046; 71275; 80048; 80053; 83540; 83550; 83605; 83615; 83690; 83735; 83880; 84145; 84484; 85025; 85379; 85610; 85730; 86850; 86900; 86901; 86920; 87040; 87070; 87205; 87635; 93005; 93306; 94640; 94760; 96365; 96375; 99285

== ENCOUNTER 2023-09-12 18:40 | Inpatient (IN) | payer MEDICARE ==
[2023-09-12] MEDS: IPRATROPIUM-ALBUTEROL 3 ML NEB INHALATION STA (18:57)
--- NOTE | 2023-09-12 19:08 | XR ---
EXAM: XR chest 1V portable CLINICAL INDICATION:Female, 77 years old with history of short of breath; LOCATED [facility]IN [facility] COMPARISON: 06/25/2023 chest x-ray and 06/23/2023 CT angio chest TECHNIQUE: Chest single view. FINDINGS: Lines/tubes/devices: EKG leads overlie the chest. No indwelling lines are seen. Cardiomediastinum: Cardiac silhouette appears normal in size. Unremarkable mediastinal silhouette. Vasculature: No increased pulmonary vasculature. Lungs/pleura: Lungs again appear hyperinflated with diffuse coarsening of the interstitium, compatible with chronic changes of COPD. There may be trace bilateral pleural effusions. No focal consolidation or pneumotho rax. Pulmonary nodularity on the left, including left upper lobe 10 mm nodule, appears grossly stable ; recommend CT follow-up when appropriate per previous recommendation. Bones/soft tissues: Bony thorax appears grossly intact as seen. Remote healed left rib fracture. IMPRESSION: No acute findings, or significant interval change.
[2023-09-12] MEDS: methylPREDNISolone SOD SUCCI 125 MG/2 ML VIAL IV STA (19:22)
[2023-09-12 19:27] LABS: INR 0.9 (<1.2); Partial Thromboplastin Time 23.8 sec (22.0-30.0); Prothrombin Time 9.7 sec (10.0-12.5)
[2023-09-12 19:48] LABS: ALT 11 U/L (4-34); AST 20 U/L (14-36); African American GFR (CKD) >90 (>60 ml/min/1.73 sqM); Albumin 3.8 g/dL (3.5-5.0); Alkaline Phosphatase 131 U/L (38-126); Anion Gap 11 mmol/L; Blood Urea Nitrogen 16 mg/dL (7-17); Calcium 10.1 mg/dL (8.4-10.2); Carbon Dioxide 28 mmol/L (22-30); Chloride 94 mmol/L (98-107); Glucose 115 mg/dL (74-99); Non-African American GFR(CKD) 84 (>60 ml/min/1.73 sqM); Sodium 133 mmol/L (137-145); Total Bilirubin 0.6 mg/dL (0.2-1.3); Total Protein 7.2 g/dL (6.3-8.2)
[2023-09-12 19:55] LABS: NT-Pro-B-Type Natriuretic Pept 1430 pg/mL
[2023-09-12 20:11] LABS: Anisocytosis Slight; Basophils % (A) 0 %; Eosinophils % (A) 0 %; HCT 31.3 % (34.0-46.0); HGB 9.2 gm/dL (11.4-16.0); Hypochromasia Marked; Lymphocytes % (A) 7 %; MCH 21.6 pg (25.0-35.0); MCHC 29.3 g/dL (31.0-37.0); MCV 73.8 fL (80.0-100.0); Mean Platelet Volume 8.1; Microcytosis Moderate; Monocytes # (A) 1.2 k/uL (0-1.0); Monocytes % (A) 9 %; Neutrophils # (A) 11.7 k/uL (1.3-7.7); Neutrophils % (A) 83 %; Platelet Count 561 k/uL (150-450); Poikilocytosis Slight; RBC 4.24 m/uL (3.80-5.40); RDW 19.3 % (11.5-15.5); WBC 14.1 k/uL (3.8-10.6)
[2023-09-12] MEDS: LORazepam 2 MG/ML INJ IV STA (20:27)
--- NOTE | 2023-09-12 20:45 | ED ---
SOB HPI - General Chief Complaint: Shortness of Breath Stated Complaint: SOB Time Seen by Provider: 09/12/23 18:50 Source: EMS Mode of arrival: EMS Limitations: no limitations - History of Present Illness Initial Comments: 77-year-old female with past medical history of COPD on 2 L home O2 who presents to the emergency department with increased work of breathing. EMS states that the patient has been more short of breath for the past couple of days. She has had a cough with thick mucus production. They have been turning up the patient's oxygen without any improvement in her symptoms. She has been having some hallucinations. No reported sick contacts. Denies any fevers. She denies any chest pain. No history of cardiac disease. HPI is limited because of the patient's current work of breathing. EMS found the patient to have oxygen saturations in the mid 80s on [address] her on CPAP en route to the hospital - Related Data Home Medications Medication Instructions Recorded Confirmed ALPRAZolam [Xanax] 0.5 mg PO HS 09/29/20 09/12/23 Ipratropium-Albuterol Nebulize 3 ml INHALATION RT-Q6H 09/29/20 09/12/23 [Duoneb 0.5 mg-3 mg/3 ml Soln] Montelukast [Singulair] 10 mg PO DAILY 09/29/20 09/12/23 Albuterol Inhaler [Ventolin Hfa 1 - 2 puff INHALATION RT-Q6H PRN 06/23/23 09/12/23 Inhaler] ALPRAZolam [Xanax] 0.5 mg PO BID PRN 09/12/23 09/12/23 Furosemide Oral Soln [Lasix] 40 mg PO DAILY 09/12/23 09/12/23 Potassium Chloride Oral Liquid 20 meq PO DAILY 09/12/23 09/12/23 Allergies Allergy/AdvReac Type Severity Reaction Status Date / Time Penicillins Allergy Unknown Verified 09/12/23 20:30 hydrocodone AdvReac Nausea & Verified 09/12/23 20:30 Vomiting Review of Systems ROS Statement: Those systems with pertinent positive or pertinent negative responses have been documented in the HPI. ROS Other: All systems not noted in ROS Statement are negative. Past Medical History Past Medical History: COPD, Hypertension Additional Past Medical History / Comment(s): PVD. History of Any Multi-Drug Resistant Organisms: None Reported Past Surgical History: Bladder Surgery Additional Past Surgical History / Comment(s): carotid endarterectomy Past Anesthesia/Blood Transfusion Reactions: No Reported Reaction Past Psychological History: Anxiety, Depression Smoking Status: Current every day smoker, Second hand smoke exposure Past Alcohol Use History: None Reported Past Drug Use History: None Reported - Past Family History Mother Family Medical History: Congestive Heart Failure (CHF) Father Family Medical History: Myocardial Infarction (CA) General Exam Limitations: physical limitation (Dyspnea) General appearance: alert, anxious Head exam: Present: atraumatic, normocephalic, normal inspection Eye exam: Present: normal appearance, PERRL, EOMI. Absent: scleral icterus, conjunctival injection, periorbital swelling ENT exam: Present: mucous membranes dry, other (Thick sputum in mouth) Respiratory exam: Present: accessory muscle use, other (Tachypnea, conversational dyspnea) Cardiovascular Exam: Present: normal rhythm, tachycardia GI/Abdominal exam: Present: soft, normal bowel sounds. Absent: distended, tenderness, guarding, rebound, rigid Neurological exam: Present: alert Psychiatric exam: Present: agitated, anxious Course Vital Signs 09/12/23 09/12/23 09/12/23 18:43 18:45 19:26 Temperature 98.1 F Pulse Rate 121 H 107 H Respiratory 28 H 32 H Rate Blood Pressure 187/117 148/75 O2 Sat by Pulse 100 100 Oximetry Fraction of 50 Inspired Oxygen (FIO2) 09/12/23 09/12/23 09/13/23 22:26 23:02 00:00 Temperature Pulse Rate 111 H 101 H Respiratory 32 H 30 H Rate Blood Pressure 139/69 100/33 O2 Sat by Pulse 100 98 Oximetry Fraction of 50 Inspired Oxygen (FIO2) 09/13/23 09/13/23 09/13/23 00:33 00:58 01:01 Temperature Pulse Rate 112 H 108 H Respiratory 27 H Rate Blood Pressure 135/72 O2 Sat by Pulse 92 L Oximetry Fraction of 35 Inspired Oxygen (FIO2) 09/13/23 01:05 Temperature Pulse Rate 111 H Respiratory Rate Blood Pressure O2 Sat by Pulse Oximetry Fraction of Inspired Oxygen (FIO2) Procedures - ABG Interpretation Ph: 7.23 PCO2: 76 PO2: 90 Bicarbonate: 32 Interpretation: respiratory acidosis Medical Decision Making - Medical Decision Making Was pt. sent in by a medical professional or institution (YVETTE Coy, STUDENT DEVELOPMENT COORDINATOR, urgent care, hospital, or retirement...) When possible be specific @ -No Did you speak to anyone other than the patient for history (EMS, parent, family, police, friend...)? What history was obtained from this source @ -EMS and daughter Did you review nursing and triage notes (agree or disagree)? Why? @ -I reviewed and agree with nursing and triage notes Were old charts reviewed (outside hosp., previous admission, EMS record, old EKG, old radiological studies, urgent care reports/EKG's, retirement records)? Report findings @ -I reviewed patient's last hospitalization discharge summary Differential Diagnosis (chest pain, altered mental status, abdominal pain women, abdominal pain men, vaginal bleeding, weakness, fever, dyspnea, syncope, headache, dizziness, GI bleed, back pain, seizure, CVA, palpatations, mental health, musculoskeletal)? @ -Differential Dyspnea: Coronary syndrome, arrhythmia, tamponade, asthma, COPD, pulmonary embolism, pneumonia, pneumothorax, pulmonary effusion, anaphylaxis, diabetic ketoacidosis, flailed chest, pulmonary contusion, diaphragmatic rupture, anemia, neuromuscular, this is not meant to be an all-inclusive list. EKG interpreted by me (3pts min.). @ -Yes and demonstrates sinus tachycardia with a rate of 117. NE interval 135. QRS 84. QTC 330. No acute ST segment elevations or depressions X-rays interpreted by me (1pt min.). @ -Yes and demonstrates hyperinflated lungs CT interpreted by me (1pt min.). @ -None done U/S interpreted by me (1pt. min.). @ -None done What testing was considered but not performed or refused? (CT, X-rays, U/S, labs)? Why? @ -None What meds were considered but not given or refused? Why? @ -None Did you discuss the management of the patient with other professionals (professionals i.e. YVETTE Coy, STUDENT DEVELOPMENT COORDINATOR, lab, RT, psych nurse, licensed social worker, welder tool and die, teacher, fire control officer, showcase trimmer)? Give summary @ -Spoke with Ara from [facility] for admission Was smoking cessation discussed for >3mins.? @ -No Was critical care preformed (if so, how long)? @ -yes, 40 minutes for bipap management Were there social determinants of health that impacted care today? How? (Homelessness, low income, unemployed, alcoholism, drug addiction, transportation, low edu. Level, literacy, decrease access to med. care, m[facility], rehab)? @ -No Was there de-escalation of care discussed even if they declined (Discuss DNR or withdrawal of care, Hospice)? DNR status @ -No What co-morbidities impacted this encounter? (DM, HTN, Smoking, COPD, CAD, Cancer, CVA, ARF, Chemo, Hep., AIDS, mental health diagnosis, sleep apnea, morbid obesity)? @ -copd Was patient admitted / discharged? Hospital course, mention meds given and route, prescriptions, significant lab abnormalities, going to OR and other pertinent info. @ -Admitted. Upon arrival patient was placed in a trauma 2. History and physical exam was performed. Patient is transferred from CPAP to BiPAP. Laboratory studies are conducted. Chest x-ray was performed. Patient was given 125 of Solu-Medrol and a second DuoNeb breathing treatment. Sputum culture is attempted. Blood culture obtained. Patient started on Rocephin and azithromycin. I did obtain a gas on the patient which shows elevated CO2. We did decrease the patient's FiO2 from 100-50. We also increased her respiratory rate and she is breathing in line with the BiPAP 14. Settings were also adjusted from 10/5-12/5. Patient will be admitted with pulmonology consult. Patient requests to be a DNR/DNI and the daughter at bedside confirms this. Spoke with Ara from [facility] for admission Undiagnosed new problem with uncertain prognosis? @ -yes Drug Therapy requiring intensive monitoring for toxicity (Heparin, Nitro, Insulin, Cardizem)? @ -No Were any procedures done? @ -No Diagnosis/symptom? @ -Acute exacerbation of chronic respiratory failure, acute BiPAP dependence, acute COPD exacerbation, acute tracheobronchitis, chf Acute, or Chronic, or Acute on Chronic? @ -acute Uncomplicated (without systemic symptoms) or Complicated (systemic symptoms)? @ -complicated Side effects of treatment? @ -No Exacerbation, Progression, or Severe Exacerbation? @ -No Poses a threat to life or bodily function? How? (Chest pain, [place], CA, pneumonia, PE, COPD, DKA, ARF, appy, cholecystitis, CVA, Diverticulitis, Homicidal, Suicidal, threat to staff... and all critical care pts) @ -Yes, patient presents in significant respiratory distress - Lab Data Result diagrams: 09/12/23 18:58 09/12/23 18:58 Lab Results 09/12/23 09/12/23 09/12/23 Range/Units 18:58 18:58 18:58 WBC 14.1 H (3.8-10.6) k/uL RBC 4.24 (3.80-5.40) m/uL Hgb 9.2 L (11.4-16.0) gm/dL Hct 31.3 L (34.0-46.0) % MCV 73.8 L (80.0-100.0) fL MCH 21.6 L (25.0-35.0) pg MCHC 29.3 L (31.0-37.0) g/dL RDW 19.3 H (11.5-15.5) % Plt Count 561 H (150-450) k/uL MPV 8.1 Neutrophils % 83 % Lymphocytes % 7 % Monocytes % 9 % Eosinophils % 0 % Basophils % 0 % Neutrophils # 11.7 H (1.3-7.7) k/uL Lymphocytes # 1.0 (1.0-4.8) k/uL Monocytes # 1.2 H (0-1.0) k/uL Eosinophils # 0.0 (0-0.7) k/uL Basophils # 0.0 (0-0.2) k/uL Hypochromasia Marked Poikilocytosis Slight Anisocytosis Slight Microcytosis Moderate PT 9.7 L (10.0-12.5) sec INR 0.9 (<1.2) APTT 23.8 (22.0-30.0) sec Sodium 133 L (137-145) mmol/L Potassium 5.0 (3.5-5.1) mmol/L Chloride 94 L (98-107) mmol/L Carbon Dioxide 28 (22-30) mmol/L Anion Gap 11 mmol/L BUN 16 (7-17) mg/dL Creatinine 0.69 (0.52-1.04) mg/dL Est GFR (CKD-EPI)AfAm >90 (>60 ml/min/1.73 sqM) Est GFR (CKD-EPI)NonAf 84 (>60 ml/min/1.73 sqM) Glucose 115 H (74-99) mg/dL Plasma Lactic Acid Jc (0.7-2.0) mmol/L Calcium 10.1 (8.4-10.2) mg/dL Total Bilirubin 0.6 (0.2-1.3) mg/dL AST 20 (14-36) U/L ALT 11 (4-34) U/L Alkaline Phosphatase 131 H (38-126) U/L Troponin I (0.000-0.034) ng/mL NT-Pro-B Natriuret Pep 1430 pg/mL Total Protein 7.2 (6.3-8.2) g/dL Albumin 3.8 (3.5-5.0) g/dL Influenza Type A (PCR) (Not Detectd) Influenza Type B (PCR) (Not Detectd) RSV (PCR) (Not Detectd) SARS-CoV-2 (PCR) (Not Detectd) 09/12/23 09/12/23 09/12/23 Range/Units 18:58 18:58 18:58 WBC (3.8-10.6) k/uL RBC (3.80-5.40) m/uL Hgb (11.4-16.0) gm/dL Hct (34.0-46.0) % MCV (80.0-100.0) fL MCH (25.0-35.0) pg MCHC (31.0-37.0) g/dL RDW (11.5-15.5) % Plt Count (150-450) k/uL MPV Neutrophils % % Lymphocytes % % Monocytes % % Eosinophils % % Basophils % % Neutrophils # (1.3-7.7) k/uL Lymphocytes # (1.0-4.8) k/uL Monocytes # (0-1.0) k/uL Eosinophils # (0-0.7) k/uL Basophils # (0-0.2) k/uL Hypochromasia Poikilocytosis Anisocytosis Microcytosis PT (10.0-12.5) sec INR (<1.2) APTT (22.0-30.0) sec Sodium (137-145) mmol/L Potassium (3.5-5.1) mmol/L Chloride (98-107) mmol/L Carbon Dioxide (22-30) mmol/L Anion Gap mmol/L BUN (7-17) mg/dL Creatinine (0.52-1.04) mg/dL Est GFR (CKD-EPI)AfAm (>60 ml/min/1.73 sqM) Est GFR (CKD-EPI)NonAf (>60 ml/min/1.73 sqM) Glucose (74-99) mg/dL Plasma Lactic Acid Jc 1.1 (0.7-2.0) mmol/L Calcium (8.4-10.2) mg/dL Total Bilirubin (0.2-1.3) mg/dL AST (14-36) U/L ALT (4-34) U/L Alkaline Phosphatase (38-126) U/L Troponin I <0.012 (0.000-0.034) ng/mL NT-Pro-B Natriuret Pep pg/mL Total Protein (6.3-8.2) g/dL Albumin (3.5-5.0) g/dL Influenza Type A (PCR) Not Detected (Not Detectd) Influenza Type B (PCR) Not Detected (Not Detectd) RSV (PCR) Not Detected (Not Detectd) SARS-CoV-2 (PCR) Not Detected (Not Detectd) Disposition Clinical Impression: Acute exacerbation of chronic obstructive pulmonary disease, BiPAP (biphasic positive airway pressure) dependence, Tracheobronchitis Disposition: ADMITTED IP TO THIS HOSP Condition: Stable Is patient prescribed a controlled substance at d/c from ED?: No Time of Disposition: 20:48 Decision to Admit Reason: Admit from EC Decision Date: 09/12/23 Decision Time: 20:48
[2023-09-12] MEDS ORDERED: NALOXONE 0.4 MG/ML 1 ML VIAL IV PRN (20:48)
[2023-09-12] MEDS ORDERED: PNEUMONIA PROTOCOL UTILIZED 1 EACH MISC PO PRN (21:21)
[2023-09-12 22:15] LABS: ABG Base Excess 4.6 mmol/L; ABG HCO3 32 mmol/L (21-25); ABG Oxygen Saturation 95.9 % (94-97); ABG PH 7.23 (7.35-7.45); ABG PO2 91 mmHg (83-108); ABG TCO2 35 mmol/L (19-24); Allen Test Performed? Yes
[2023-09-12 22:22] LABS: ABG PCO2 77 mmHg (35-45)
[2023-09-12] MEDS: AZITHROMYCIN 500 MG in SODIUM CHLORIDE 0.9% 250 ML IVPB STA (23:45)
[2023-09-13] MEDS: IPRATROPIUM-ALBUTEROL 3 ML NEB INHALATION PRN (00:58)
[2023-09-13] MEDS: LORazepam 2 MG/ML INJ IV STA (04:15)
[2023-09-13] MEDS ORDERED: ALPRAZolam 0.5 MG TAB PO PRN (04:51)
--- NOTE | 2023-09-13 05:38 | P.CNPUL ---
History of Present Illness Consult date: 09/13/23 Requesting physician: Era Parish Reason for consult: COPD Chief complaint: Shortness of breath and altered mental status History of present illness: I am seeing this patient in consultation today 10/03/2023 in the emergency department trauma room to for acute COPD exacerbation. Patient is a 77-year-old female with past medical history significant for severe oxygen dependent COPD. Unfortunately, she continues to smoke cigarettes. She is currently obtunded and unable to provide any information. Her daughter is at bedside and tells me that she's been short of breath for the last few days. She has been coughing and producing green sputum. She did had a recent hospital admission back in June for COVID-19 and possible superimposed right middle lobe pneumonia. She does reportedly follow Dr. Gomez in the pulmonary office. Patient is currently obtunded, lying in bed, on BiPAP with settings 12/5 and FiO2 of 50%. ABGs done in the setting showed pH of 7.23, pCO2 of 77, pO2 of 91. Respiratory rate around 30 bpm Tidal volumes are not adequate, around 150-200. I did make BiPAP changes, IPAP increased to 16 and FiO2 dropped to 35%. She was given a dose of Ativan earlier. Apparently she was quite anxious. Chest x-ray on arrival did not show any acute cardiopulmonary process. Negative for influenza, RSV, COVID-19. CBC on arrival showed some leukocytosis with a WBC count of 14. She is afebrile. Empirically covered on a combination of azithromycin and Rocephin. She does have chronic anemia, and her hemoglobin is stable at 9.2. BMP unremarkable. Troponin less than 0.012 and total NT BMP 1430. She is a DO NOT INTUBATE/DO NOT RESUSCITATE. Patient will be monitored on the cardiac stepdown unit. Review of Systems ROS unobtainable: due to mental status Past Medical History Past Medical History: COPD, Hypertension Additional Past Medical History / Comment(s): PVD. History of Any Multi-Drug Resistant Organisms: None Reported Past Surgical History: Bladder Surgery Additional Past Surgical History / Comment(s): carotid endarterectomy Past Anesthesia/Blood Transfusion Reactions: No Reported Reaction Past Psychological History: Anxiety, Depression Smoking Status: Current every day smoker, Second hand smoke exposure Past Alcohol Use History: None Reported Past Drug Use History: None Reported - Past Family History Mother Family Medical History: Congestive Heart Failure (CHF) Father Family Medical History: Myocardial Infarction (ND) Medications and Allergies Home Medications Medication Instructions Recorded Confirmed Type ALPRAZolam [Xanax] 0.5 mg PO HS 09/29/20 09/12/23 History Ipratropium-Albuterol Nebulize 3 ml INHALATION RT-Q6H 09/29/20 09/12/23 History [Duoneb 0.5 mg-3 mg/3 ml Soln] Montelukast [Singulair] 10 mg PO DAILY 09/29/20 09/12/23 History Albuterol Inhaler [Ventolin Hfa 1 - 2 puff INHALATION RT-Q6H PRN 06/23/23 09/12/23 History Inhaler] ALPRAZolam [Xanax] 0.5 mg PO BID PRN 09/12/23 09/12/23 History Furosemide Oral Soln [Lasix] 40 mg PO DAILY 09/12/23 09/12/23 History Potassium Chloride Oral Liquid 20 meq PO DAILY 09/12/23 09/12/23 History Allergies Allergy/AdvReac Type Severity Reaction Status Date / Time Penicillins Allergy Unknown Verified 09/12/23 20:30 hydrocodone AdvReac Nausea & Verified 09/12/23 20:30 Vomiting Physical Exam Vitals: Vital Signs Temp Pulse Resp BP Pulse Ox FiO2 09/13/23 04:23 108 H 09/13/23 04:12 105 H 09/13/23 04:10 35 09/13/23 02:05 99 22 106/47 91 L 09/13/23 01:05 111 H 09/13/23 01:01 108 H 27 H 135/72 92 L 09/13/23 00:58 112 H 09/13/23 00:33 35 09/13/23 00:00 101 H 30 H 100/33 98 09/12/23 23:02 111 H 32 H 139/69 100 09/12/23 22:26 50 09/12/23 19:26 107 H 32 H 148/75 100 09/12/23 18:45 50 09/12/23 18:43 98.1 F 121 H 28 H 187/117 100 Intake and Output 09/12/23 09/12/23 09/13/23 14:59 22:59 06:59 Other: Weight 50.802 kg GENERAL EXAM: Obtunded, 77-year-old female, in some respiratory distress with accessory muscle use on BiPAP. HEAD: Normocephalic and atraumatic EYES: Normal reaction of pupils, equal size. NOSE: Clear with pink turbinates. THROAT: No erythema or exudates. NECK: No masses, no JVD. CHEST: No chest wall deformity. LUNGS: Equal air entry with expiratory wheezes heard throughout. On BiPAP with current settings 16/5 and FiO2 of 35%. Achieving tidal volumes around 350. Respiratory rate is in the high 20s to low 30s. CVS: S1 and S2 normal with no audible murmur, regular rhythm. No extra heart sounds. Tachycardic. ABDOMEN: No hepatosplenomegaly, active bowel sounds, no guarding or rigidity. SPINE: No scoliosis or deformity SKIN: No rashes CENTRAL NERVOUS SYSTEM: No focal deficits, withdrawals to pain in all 4 extremities. EXTREMITIES: There is no peripheral edema, clubbing, or cyanosis. Peripheral pulses are intact. Results - Laboratory Findings CBC and BMP: 09/13/23 08:23 09/13/23 08:23 ABG ABG pH 7.23 (7.35-7.45) L 09/12/23 22:13 ABG pCO2 77 mmHg (35-45) H* 09/12/23 22:13 ABG pO2 91 mmHg (83-108) 09/12/23 22:13 ABG O2 Saturation 95.9 % (94-97) 09/12/23 22:13 PT/INR, D-dimer PT 9.7 sec (10.0-12.5) L 09/12/23 18:58 INR 0.9 (<1.2) 09/12/23 18:58 D-Dimer 1.90 mg/L FEU (<0.60) H 09/13/23 00:53 Abnormal lab findings: Abnormal Labs 09/12/23 09/12/23 09/12/23 18:58 18:58 18:58 WBC 14.1 H Hgb 9.2 L Hct 31.3 L MCV 73.8 L MCH 21.6 L MCHC 29.3 L RDW 19.3 H Plt Count 561 H Neutrophils # 11.7 H Monocytes # 1.2 H PT 9.7 L D-Dimer ABG pH ABG pCO2 ABG HCO3 ABG Total CO2 Sodium 133 L Chloride 94 L Glucose 115 H Alkaline Phosphatase 131 H 09/12/23 09/13/23 22:13 00:53 WBC Hgb Hct MCV MCH MCHC RDW Plt Count Neutrophils # Monocytes # PT D-Dimer 1.90 H ABG pH 7.23 L ABG pCO2 77 H* ABG HCO3 32 H ABG Total CO2 35 H Sodium Chloride Glucose Alkaline Phosphatase - Diagnostic Findings Chest x-ray: image reviewed Assessment and Plan Assessment: Acute COPD exacerbation, chest x-ray did not show any acute cardiopulmonary process. No focal infiltrates or evidence of pneumonia. Negative for influenza, RSV, COVID-19. Acute on chronic hypoxemic and hypercapnic respiratory failure, secondary to above Altered mental status, related to hypercapnic encephalopathy Leukocytosis Chronic microcytic hypochromic anemia, probably iron deficiency Hypertension Chronic hypoxemic respiratory failure Recently recovered from acute COVID-19 infection/COVID-19 pneumonia History of pulmonary nodules, being followed up in outpatient basis Chronic ongoing tobacco dependence Plan: Patient's medications, labs, chest x-ray reviewed. No focal infiltrates or evidence of pneumonia. Continue on BiPAP with current settings. Patient is a DO NOT INTUBATE/DO NOT RESUSCITATE. Continue empiric antibiotics. Blood and sputum cultures pending. Check procalcitonin level. D-dimer was elevated, however, she would not be able to tolerate a chest CTA at this time. She cannot lay flat. She is in some respiratory distress. Will reconsider at a later time. This is likely an acute COPD exacerbation. Started on a combination of D uoNeb's, budesonide inhalation, formoterol inhalation, and IV Solu-Medrol. Patient is a DO NOT INTUBATE/DO NOT RESUSCITATE. Patient's prognosis is severely guarded. We will continue to follow I have personally seen and examined the patient, performed the documentation and the assessment and plan as written. Number of minutes spent on the visit:20 This is a joint evaluation that was being done along with a nurse practitioner. His evaluation was on a more than 30 minutes. Patient is known to me. Taking care of her during her last hospitalization for COPD exacerbation back in June 2023 and at that time the patient had a Covid 19 infection. She is quite debilitated. She is short of breath at all times, oxygen dependent and she has been using her albuterol neb blotchiness frequently. The patient was also placed on trilogy. Nevertheless, she did not have enough strength to i nhaled a powdered medication. She is a chronic smoker. She presented emergency with worsening shortness of breath and hypoxic respiratory failure and altered mentation. She had acute on top of chronic hypoxic and hypercapnic respiratory failure. Currently she is on a BiPAP at a pressure of 16/5 cm of water with FiO2 of 35%. She remains bronchospastic and wheezy. She was quite restless and fighting the BiPAP. Based on that, she was started on Ativan initially and later on she is placed on Precedex which is running at 0.5 mcg/kg/h. I reviewed the chest x-ray is consistent with COPD. There is no indication for an underlying pneumonia at this point in time. The viral screen came back negative including Covid 19. There is a drop in hemoglobin down to 7.5 and this is microcytic and needs to be monitored. She has not shown any signs of GI bleeds. The WBC count of 8.4, electrolytes are normal, she is currently on DuoNeb updrafts, she is on IV Solu-Medrol 60 mg every 6 hours, she is on accommodation of Rocephin and Zithromax, she was placed on Lovenox 40 mg subcu for DVT prophylaxis. She is going to be placed on IV Protonix. She is a DNR/DNI CODE STATUS. We'll continue monitoring her very closely. Also, his poor based above-mentioned comorbidities. Daughter is at the bedside. Time with Patient: Greater than 30
[2023-09-13] MEDS ORDERED: ONDANSETRON 4 MG/2 ML VIAL IVP PRN (06:08)
[2023-09-13] MEDS ORDERED: ACETAMINOPHEN TAB 325 MG TAB PO PRN (06:08)
[2023-09-13] MEDS: methylPREDNISolone SOD SUCCI 125 MG/2 ML VIAL IV SCH (06:31)
[2023-09-13] MEDS: DEXMEDETOMIDINE/0.9% NACL(PMX) 400 MCG in EMPTY BAG 1 BAG IV SCH (06:55)
[2023-09-13 07:00] LABS: Glucose,Whole Blood 152 mg/dL (70-110)
[2023-09-13] MEDS ORDERED: methylPREDNISolone SOD SUCCI 40 MG/ML 1 ML VIAL IV SCH (08:00)
[2023-09-13] MEDS: BUDESONIDE 1 MG/2 ML NEBU INHALATION SCH (08:06)
[2023-09-13] MEDS: FORMOTEROL FUMARATE 20 MCG/2 ML NEBU INHALATION SCH (08:06)
[2023-09-13] MEDS: IPRATROPIUM-ALBUTEROL 3 ML NEB INHALATION SCH (08:06)
[2023-09-13 08:44] LABS: Anisocytosis Slight; Basophils % (A) 0 %; Eosinophils % (A) 0 %; HCT 27.3 % (34.0-46.0); Hypochromasia Marked; Lymphocytes # (A) 0.5 k/uL (1.0-4.8); Lymphocytes % (A) 6 %; MCH 20.9 pg (25.0-35.0); MCHC 27.5 g/dL (31.0-37.0); MCV 75.8 fL (80.0-100.0); Mean Platelet Volume 6.6; Microcytosis Moderate; Monocytes # (A) 0.2 k/uL (0-1.0); Monocytes % (A) 2 %; Neutrophils # (A) 7.6 k/uL (1.3-7.7); Neutrophils % (A) 91 %; Platelet Count 448 k/uL (150-450); Poikilocytosis Slight; RDW 19.2 % (11.5-15.5); WBC 8.4 k/uL (3.8-10.6)
--- NOTE | 2023-09-13 08:55 | XR ---
EXAMINATION TYPE: XR chest 1V portable DATE OF EXAM: 09/13/2023 COMPARISON: 09/12/2020 HISTORY: Shortness of breath TECHNIQUE: Single frontal view of the chest is obtained. FINDINGS: Exam limited by patient positioning. Left upper lobe is nondiagnostic. Underlying COPD and chronic interstitial lung disease with left basilar atelectasis favored over pneumonia. Osseous stru ctures are stable. Chronic rib deformities are seen and there is degenerative change of the spine. IMPRESSION: Limited exam demonstrates findings of COPD.
[2023-09-13 08:56] LABS: African American GFR (CKD) >90 (>60 ml/min/1.73 sqM); Anion Gap 6 mmol/L; Blood Urea Nitrogen 18 mg/dL (7-17); Calcium 9.1 mg/dL (8.4-10.2); Carbon Dioxide 33 mmol/L (22-30); Chloride 96 mmol/L (98-107); Glucose 137 mg/dL (74-99); Non-African American GFR(CKD) 78 (>60 ml/min/1.73 sqM); Potassium 5.1 mmol/L (3.5-5.1); Sodium 135 mmol/L (137-145)
[2023-09-13 09:00] LABS: HGB 7.5 gm/dL (11.4-16.0)
[2023-09-13] MEDS: SODIUM CHLORIDE 0.9% 1,000 ML IV SCH (09:00)
[2023-09-13] MEDS: MONTELUKAST 10 MG TAB PO SCH (09:03)
[2023-09-13 10:24] LABS: Appearance,Urine Clear (Clear); Color,Urine Light Orange
[2023-09-13 10:26] LABS: Bilirubin,Urine Negative (Negative); Blood,Urine Moderate (Negative); Glucose,Urine (UA) Negative (Negative); Ketones,Urine Negative (Negative); Leukocyte Esterase,Urine Negative (Negative); Nitrite,Urine Negative (Negative); Protein,Urine 1+ (Negative); Urobilinogen,Urine 0.2 mg/dL (<2.0)
[2023-09-13 10:31] LABS: Granular Casts,Urine 8 /lpf (0); Hyaline Casts,Urine 1 /lpf (0-2); Mucus,Urine Occasional /hpf; RBC,Urine 16 /hpf (0-5); Red Blood Cell Casts,Urine 1 /lpf (0); Squamous Epithelial Cell,Urine <1 /hpf (0-4); WBC,Urine 5 /hpf (0-5)
[2023-09-13] MEDS: ENOXAPARIN 40 MG/0.4 ML SYRINGE SQ SCH (11:35)
[2023-09-13] MEDS: PANTOPRAZOLE 40 MG/10 ML VIAL IVP SCH (11:35)
[2023-09-13 11:38] LABS: Anisocytosis Slight; HCT 25.8 % (34.0-46.0); HGB 7.3 gm/dL (11.4-16.0); Hypochromasia Marked; MCH 21.5 pg (25.0-35.0); MCHC 28.5 g/dL (31.0-37.0); MCV 75.4 fL (80.0-100.0); Mean Platelet Volume 6.7; Microcytosis Moderate; Platelet Count 392 k/uL (150-450); Poikilocytosis Slight; RBC 3.42 m/uL (3.80-5.40); RDW 19.3 % (11.5-15.5); WBC 7.2 k/uL (3.8-10.6)
[2023-09-13] MEDS: SODIUM CHLORIDE 0.9% 1,000 ML IV ONE ×2 (13:05→18:30)
[2023-09-13 17:12] LABS: Glucose,Whole Blood 142 mg/dL (70-110)
[2023-09-13 18:10] LABS: ABG Base Excess 2.1 mmol/L; ABG HCO3 30 mmol/L (21-25); ABG Oxygen Saturation 92.9 % (94-97); ABG PH 7.21 (7.35-7.45); ABG PO2 75 mmHg (83-108); ABG TCO2 32 mmol/L (19-24)
[2023-09-13 18:15] LABS: ABG PCO2 75 mmHg (35-45); Allen Test Performed? Yes
[2023-09-13] MEDS: AZITHROMYCIN 500 MG TAB PO SCH (22:04)
[2023-09-13] MEDS: ALPRAZolam 0.5 MG TAB PO SCH (22:04)
[2023-09-13] MEDS ORDERED: MORPHINE SULFATE 4 MG/ML SYRINGE IVP ONE (23:03)
[2023-09-13] MEDS ORDERED: HALOPERIDOL LACTATE 5 MG/ML 1 ML VIAL IM PRN (23:03)
[2023-09-13] MEDS ORDERED: guaiFENesin SYRUP 100MG/5ML 200 MG/10 ML CUP PO PRN (23:03)
[2023-09-13] MEDS ORDERED: MORPHINE SULFATE 2 MG/ML SYRINGE IV PRN (23:03)
[2023-09-13] MEDS ORDERED: ATROPINE OPHTH SOLN 1% 5ML BTL SUBLINGUAL PRN (23:03)
[2023-09-13] MEDS ORDERED: LORazepam 0.5 MG TAB PO PRN (23:03)
[2023-09-13] MEDS ORDERED: MORPHINE SULFATE (100 MG/2 ML) 100 MG in SODIUM CHLORIDE 0.9% 100 ML IV SCH (23:30)
[2023-09-14] MEDS: LORazepam 2 MG/ML INJ IV STA (01:29)
[2023-09-14 04:26] LABS: Anisocytosis Slight; HCT 27.5 % (34.0-46.0); HGB 7.6 gm/dL (11.4-16.0); Hypochromasia Marked; MCH 21.3 pg (25.0-35.0); MCHC 27.8 g/dL (31.0-37.0); MCV 76.6 fL (80.0-100.0); Mean Platelet Volume 6.9; Microcytosis Moderate; Platelet Count 481 k/uL (150-450); Poikilocytosis Slight; RBC 3.59 m/uL (3.80-5.40); RDW 19.4 % (11.5-15.5); WBC 6.6 k/uL (3.8-10.6)
[2023-09-14 04:39] LABS: Chloride 105 mmol/L (98-107)
[2023-09-14 04:42] LABS: African American GFR (CKD) 85 (>60 ml/min/1.73 sqM); Anion Gap 9 mmol/L; Blood Urea Nitrogen 24 mg/dL (7-17); Carbon Dioxide 25 mmol/L (22-30); Glucose 97 mg/dL (74-99); Non-African American GFR(CKD) 73 (>60 ml/min/1.73 sqM); Potassium 5.5 mmol/L (3.5-5.1); Sodium 139 mmol/L (137-145)
[2023-09-14 07:28] LABS: Lymphocytes # (M) 0.53 k/uL (1.0-4.8); Monocytes # (M) 0.07 k/uL (0-1.0); Neutrophils # (M) 6.01 k/uL (1.3-7.7); Neutrophils % (M) 91 %; Nucleated Red Blood Cells 0 /100 WBC (0-0); Total Cells Counted 100
[2023-09-14 07:30] LABS: Target Cells Present
--- NOTE | 2023-09-14 08:25 | XR ---
EXAMINATION TYPE: XR chest 1V DATE OF EXAM: 09/14/2023 COMPARISON: 09/13/2023 HISTORY: Shortness of breath TECHNIQUE: Single frontal view of the chest is obtained. FINDINGS: Patchy density in the right upper lobe. Chronic rib deformity seen with diffuse osteopenia , AC joint arthropathy and degenerative changes of spine. Underlying COPD chronic interstitial lung d isease. Heart size normal. IMPRESSION: COPD with patchy density in the right upper lobe may represent superimposed structures. Early infiltrate not excluded.
[2023-09-14] MEDS ORDERED: MORPHINE SULFATE 4 MG/ML SYRINGE IVP ONE (09:36)
[2023-09-14] MEDS ORDERED: ATROPINE OPHTH SOLN 1% 5ML BTL SUBLINGUAL PRN (09:36)
[2023-09-14] MEDS ORDERED: MORPHINE SULFATE 4 MG/ML SYRINGE IV PRN (09:36)
[2023-09-14] MEDS ORDERED: MORPHINE SULFATE 2 MG/ML SYRINGE IV PRN (09:36)
[2023-09-14] MEDS ORDERED: LORazepam 2 MG/ML INJ IV PRN (09:36)
[2023-09-14] MEDS ORDERED: SCOPOLAMINE 1 MG/72 HR PATCH TRANSDERM SCH (09:45)
[2023-09-14] MEDS ORDERED: MORPHINE SULFATE (100 MG/2 ML) 100 MG in SODIUM CHLORIDE 0.9% 100 ML IV SCH (09:45)
--- NOTE | 2023-09-14 10:08 | P.PN ---
Subjective Progress Note Date: 09/14/23 I am seeing this patient in consultation today 10/03/2023 in the emergency department trauma room to for acute COPD exacerbation. Patient is a 77-year-old female with past medical history significant for severe oxygen dependent COPD. Unfortunately, she continues to smoke cigarettes. She is currently obtunded and unable to provide any information. Her daughter is at bedside and tells me that she's been short of breath for the last few days. She has been coughing and producing green sputum. She did had a recent hospital admission back in June for COVID-19 and possible superimposed right middle lobe pneumonia. She does reportedly follow Dr. Gomez in the pulmonary office. Patient is curr ently obtunded, lying in bed, on BiPAP with settings 12/5 and FiO2 of 50%. ABGs done in the setting showed pH of 7.23, pCO2 of 77, pO2 of 91. Respiratory rate around 30 bpm Tidal volumes are not adequate, around 150-200. I did make BiPAP changes, IPAP increased to 16 and FiO2 dropped to 35%. She was given a dose of Ativan earlier. Apparently she was quite anxious. Chest x-ray on arrival did not show any acute cardiopulmonary process. Negative for influenza, RSV, COVID- 19. CBC on arrival showed some leukocytosis with a WBC count of 14. She is afebrile. Empirically covered on a combination of azithromycin and Rocephin. She does have chronic anemia, and her hemoglobin is stable at 9.2. BMP unremarkable. Troponin less than 0.012 and total NT BMP 1430. She is a DO NOT INTUBATE/DO NOT RESUSCITATE. Patient will be monitored on the cardiac stepdown unit. On today's evaluation of 09/14/2023, the patient is doing very poor. She is on a BiPAP pressure of 16/5 cm with an FiO2 of 35%. Noted is still having labored breathing. She is quite tachypneic. Respiratory low 30s. She is able to generate tidal volume of 350 mL he is while being on a BiPAP. Actively bronchospastic and wheezy. Markedly diminished breath sounds. Lethargic, encephalopathic. Arousable. Follows simple commands. Breathing is labored even while being on a BiPAP. Family was approached yesterday. I'm at the daughter and several getting periods. The family is seriously considering comfort care measures on her. Most recent blood gas showed a pH of 7.21 with a pCO2 of 70, pO2 of 75. She was having another urine output and based on that, she was given several boluses of IV fluid a total of 2 L. The ends of 24 with a creatinine 0.7 and a sodium level 139. The restarted 6.6 with a hemoglobin of 7.6. The repeat chest x-ray from today shows COPD. No other acute abnormalities. No airspace disease. No consolidation. The patient is extremely debilitated and weak and lethargic and encephalopathic at this point in time. She is a DNR/DNI CODE STATUS. The patient has declined intubation mechanical ventilation this is per her previous wishes. Cardiac rhythm is sinus tachycardia. Objective - Vital Signs Vital signs: Vital Signs Temp 98.4 F 09/14/23 04:00 Pulse 128 H 09/14/23 09:46 Resp 25 H 09/14/23 09:39 BP 142/75 09/14/23 07:30 Pulse Ox 97 09/14/23 07:30 FiO2 35 09/14/23 09:28 Intake & Output 09/13/23 09/14/23 09/14/23 18:59 06:59 18:59 Intake Total 2967.969 1625 95 Output Total 362 120 20 Balance 2605.969 1505 75 Weight 51.347 kg 55.7 kg Intake: IV 2925 1625 95 Invasive Line 2 70 20 10 Invasive Line 3 30 20 10 Sodium Chloride 0.9% 1, 825 535 75 000 ml @ 75 mls/hr IV . [id number] [facility] Rx#:[id number] Sodium Chloride 0.9% 1, 1999 1000 000 ml @ 999 mls/hr IV . Q1H1M ONE Rx#:[id number] cefTRIAXone 2 gm In 50 Sodium Chloride 0.9% 50 ml @ 100 mls/hr IVPB Q24H [facility] Rx#:[id number] Intake, IV Titration 42.969 Amount Dexmedetomidine/0.9% NaCl 42.969 (Pmx) 400 mcg In Empty Bag 1 bag @ 0.2 MCG/KG/HR 2.54 mls/hr IV .Q24H [facility] Rx#:[id number] Oral 0 Output: Urine 362 120 20 Other: Voiding Method Indwelling Catheter Indwelling Catheter # Bowel Movements 0 - Exam GENERAL EXAM: Obtunded, 77-year-old female, in some respiratory distress with accessory muscle use on BiPAP. Initially on the same setting of 16/5 with an FiO2 of 35%. Breathing is labored. Slightly more arousable compared to yesterday although overall very much encephalopathic. Mucous membranes are extremely dry. HEAD: Normocephalic and atraumatic EYES: Normal reaction of pupils, equal size. NOSE: Clear with pink turbinates. THROAT: No erythema or exudates. NECK: No masses, no JVD. CHEST: No chest wall deformity. LUNGS: Equal air entry with expiratory wheezes heard throughout. On BiPAP with current settings 16/5 and FiO2 of 35%. Achieving tidal volumes around 350. Respiratory rate is in the low 30s to low 30s. CVS: S1 and S2 normal with no audible murmur, regular rhythm. No extra heart sounds. Tachycardic. ABDOMEN: No hepatosplenomegaly, active bowel sounds, no guarding or rigidity. SPINE: No scoliosis or deformity SKIN: No rashes CENTRAL NERVOUS SYSTEM: No focal deficits, withdrawals to pain in all 4 extremities. EXTREMITIES: There is no peripheral edema, clubbing, or cyanosis. Peripheral pulses are intact - Labs CBC & Chem 7: 09/14/23 04:04 09/14/23 04:04 Labs: Abnormal Lab Results - Last 24 Hours (Table) 09/13/23 09/13/23 09/13/23 Range/Units 10:00 11:24 17:10 RBC 3.42 L (3.80-5.40) m/uL Hgb 7.3 L (11.4-16.0) gm/dL Hct 25.8 L (34.0-46.0) % MCV 75.4 L (80.0-100.0) fL MCH 21.5 L (25.0-35.0) pg MCHC 28.5 L (31.0-37.0) g/dL RDW 19.3 H (11.5-15.5) % Plt Count (150-450) k/uL Lymphocytes # (Manual) (1.0-4.8) k/uL ABG pH (7.35-7.45) ABG pCO2 (35-45) mmHg ABG pO2 (83-108) mmHg ABG HCO3 (21-25) mmol/L ABG Total CO2 (19-24) mmol/L ABG O2 Saturation (94-97) % Potassium (3.5-5.1) mmol/L BUN (7-17) mg/dL POC Glucose (mg/dL) 142 H (70-110) mg/dL Urine Protein 1+ H (Negative) Urine Blood Moderate H (Negative) Urine RBC 16 H (0-5) /hpf Urine Mucus Occasional H (None) /hpf 09/13/23 09/14/23 09/14/23 Range/Units 18:07 04:04 04:04 RBC 3.59 L (3.80-5.40) m/uL Hgb 7.6 L (11.4-16.0) gm/dL Hct 27.5 L (34.0-46.0) % MCV 76.6 L (80.0-100.0) fL MCH 21.3 L (25.0-35.0) pg MCHC 27.8 L (31.0-37.0) g/dL RDW 19.4 H (11.5-15.5) % Plt Count 481 H (150-450) k/uL Lymphocytes # (Manual) 0.53 L (1.0-4.8) k/uL ABG pH 7.21 L (7.35-7.45) ABG pCO2 75 H* (35-45) mmHg ABG pO2 75 L (83-108) mmHg ABG HCO3 30 H (21-25) mmol/L ABG Total CO2 32 H (19-24) mmol/L ABG O2 Saturation 92.9 L (94-97) % Potassium 5.5 H (3.5-5.1) mmol/L BUN 24 H (7-17) mg/dL POC Glucose (mg/dL) (70-110) mg/dL Urine Protein (Negative) Urine Blood (Negative) Urine RBC (0-5) /hpf Urine Mucus (None) /hpf Microbiology - Last 24 Hours (Table) 09/12/23 22:55 Blood Culture - Preliminary Blood 09/12/23 22:40 Blood Culture Gram Stain - Preliminary Blood 09/12/23 18:58 Gram Stain - Preliminary Sputum Assessment and Plan Assessment: Acute COPD exacerbation, chest x-ray did not show any acute cardiopulmonary process. No focal infiltrates or evidence of pneumonia. Negative for influenza, RSV, COVID-19. Patient has advanced COPD. The patient is coming in for a COPD exacerbation and the patient is currently on BiPAP at a pressure of 16/5 cm of water FiO2 of 35%. Chest x-ray findings are stable. No evidence of pneumonia. She is a typical acute on top of chronic hypoxic and hypercapnic respiratory failure with secondary to altered mentation. Breathing is labored that she is using accessory muscles of breathing. She has not some limited progress compared to yesterday. However, her lung diseases advanced and end- stage. The patient's family is seriously considering comfort care measures which I think it's reasonable thing to consider based on her condition. Acute on chronic hypoxemic and hypercapnic respiratory failure, secondary to above Altered mental status, related to hypercapnic encephalopathy Leukocytosis Chronic microcytic hypochromic anemia, probably iron deficiency Hypertension Chronic hypoxemic respiratory failure Recently recovered from acute COVID-19 infection/COVID-19 pneumonia History of pulmonary nodules, being followed up in outpatient basis Chronic ongoing tobacco dependence Plan: We'll continue the supportive care. We'll continue the BiPAP at the same setting The patient is currently off Precedex Patient is tolerating the BiPAP at this point in time Continue the bronchodilators and steroids Labs are noted Chest x-ray was noted The patient is running a lower urine output and the patient was given several boluses of IV fluids. Creatinine is stable Unfortunately she carries a very poor prognosis. This has been discussed with the family yesterday at length. Final decision will be done on comfort care measures. If so, the patient will be started on morphine drip and was planned of life care. Meanwhile, her CODE STATUS is DNR/DNI. Continue the rest of the treatment and no changes will be done accordingly. IV fluids are currently running at 75 mL an hour.
[2023-09-14 10:36] VITALS: BP 159/90; PULSE 118; RESP 35; TEMP 97.8
--- NOTE | 2023-09-14 11:05 | P.HPIM ---
History of Present Illness H&P Date: 09/13/23 This is a 77-year-old female who presented to the emergency department in severe respiratory distress brought by EMS for continued shortness of breath that had been progressively getting worse over the last few days. Patient reporting to having significant cough with mucus production requiring more oxygen in the outpatient setting. Patient was found to be in the mid 80s on nasal cannula and placed her on CPAP and transitioned to BiPAP on admission. Patient follows with Dr. Ni in the outpatient setting with past medical history of COPD and hypertension along with anxiety and depression with continued ongoing nicotine dependence. On admission chest x-ray shows no acute findings no significant interval change with trace bilateral pleural effusions and pulmonary nodules on the left including left upper lobe 10 mm nodule that appears stable with no focal consolidation or pneumothorax noted. EKG showed sinus tachycardia with a heart rate of 117. Patient had labs on admission showing an elevated white count of 14.1, hemoglobin was stable at 9.2, d-dimer was elevated, blood gases obtained showing a pCO2 of 77 and bicarb 32 with a CO2 of 35, sodium 133, potassium 5.0, creatinine within normal limits at 0.69, troponin was negative, bNP was minimally elevated at 1430 and pro-calcitonin was 0.28. Patient had coded/influenza/RSV testing which was negative. Patient was admitted with COPD exacerbation with severe hypoxic respiratory failure. She is no code and agreeable to BiPAP. Review Of Systems: Constitutional: No fever, no chills, no night sweats. No weight change. Ported increased fatigue or lethargy. No daytime sleepiness. EENT: No headache. No blurred vision or double vision, no loss of vision. No loss of Hearing, no ringing in the ears, no dizziness. No nasal drainage or congestion. No epistaxis. No sore throat. Lungs: Reported shortness of breath, with cough, and green sputum production. No wheezing. Cardiovascular: No chest pain, no lower extremity edema. No palpitations. No paroxysmal nocturnal dyspnea. No orthopnea. No lightheadedness or dizziness. No syncopal episodes. Abdominal: No abdominal pain. No nausea, vomiting. No diarrhea. No constipation. No bloody or tarry stools.. No loss of appetite. Genitourinary: No dysuria, increased frequency, urgency. No urinary retention. Musculoskeletal: No myalgias. No muscle weakness, no gait dysfunction, no frequent falls. No back pain. No neck pain. Integumentary: No wounds, no lesions. No rash or pruritus. No unusual bruising. No change in hair or nails. Neurologic: No aphasia. No facial droop. No change in mentation. No head injury. No headache. No paralysis. No paresthesia. Psychiatric: No depression. No anxiety. No mood swings. Endocrine: No abnormal blood sugars. No weight change. No excessive sweating or thirst. No cold intolerance. PHYSICAL EXAMINATION: GENERAL: The patient is alert and oriented x4, Well developed, thin built, ill- appearing. Elderly-appearing HEENT: Pupils are round and equally reacting to light. EOMI. no scleral icterus. No conjunctival pallor. Normocephalic, atraumatic. No pharyngeal erythema. No thyromegaly. CARDIOVASCULAR: S1 and S2 muffled PULMONARY: diminished breath sounds bilaterally with expiratory wheezing and coarse rhonchi noted. ABDOMEN: soft. Nontender on exam. non-distended, normoactive bowel sounds. No palpable organomegaly. MUSCULOSKELETAL: No joint swelling or deformity. EXTREMITIES: No cyanosis, clubbing, or pedal edema. NEUROLOGICAL: Gross neurological examination did not reveal any focal deficits. Diffuse weakness SKIN: No rashes. Assessment: Shortness of breath with acute on chronic hypoxic respiratory failure secondary to COPD exacerbation History of advanced COPD conically wears 3 L outpatient Acute altered mental status, likely related to hypercapnic encephalopathy with hypoxia Leukocytosis, present on admission History of chronic anemia, likely TANIYA History of hypertension Recent diagnosis of acute COVID-19 with acute COVID-19 pneumonia Pulmonary nodules noted on the left, 10 mm Continued ongoing nicotine dependence GI prophylaxis DVT prophylaxis No code Plan: Recommend to continue with current medications and management per pulmonary securities broker. Patient was brought to the hospital via EMS in significant respiratory distress started on CPAP and transitioned to BiPAP on admission and admitted for severe COPD exacerbation Patient was started on IV steroids along with breathing inhalational treatments with overall poor and guarded prognosis given significant advanced COPD Patient continued to decline continued on respiratory support and is no code but was agreeable to BiPAP on admission Patient recently recovered from COVID-19 infection with COVID-19 pneumonia and was started on empiric antibiotics although no significant findings noted on chest x-ray to suggest a pneumonia Overall extremely poor prognosis and family considering possible comfort measures The impression and plan of care has been dictated by Ara Pickett, nurse practitioner as directed. Dr. Cira MD I have performed a history and examination and MDM of this patient, discussed the same with the dictator, and agree with the dictator's assessment and plan as written ,documented as a scribe. Based on total visit time, I have performed more than 50% of the visit. Any additional findings or plans will be noted. Past Medical History Past Medical History: COPD, Hypertension Additional Past Medical History / Comment(s): PVD. History of Any Multi-Drug Resistant Organisms: None Reported Past Surgical History: Bladder Surgery Additional Past Surgical History / Comment(s): carotid endarterectomy Past Anesthesia/Blood Transfusion Reactions: No Reported Reaction Past Psychological History: Anxiety, Depression Smoking Status: Current every day smoker, Second hand smoke exposure Past Alcohol Use History: None Reported Past Drug Use History: None Reported - Past Family History Mother Family Medical History: Congestive Heart Failure (CHF) Father Family Medical History: Myocardial Infarction ([place]) Medications and Allergies Home Medications Medication Instructions Recorded Confirmed Type RX: ALPRAZolam [Xanax] 0.5 mg PO HS 09/29/20 09/12/23 History RX: Ipratropium-Albuterol Nebulize 3 ml INHALATION RT-Q6H 09/29/20 09/12/23 History [Duoneb 0.5 mg-3 mg/3 ml Soln] RX: Montelukast [Singulair] 10 mg PO DAILY 09/29/20 09/12/23 History RX: Albuterol Inhaler [Ventolin 1 - 2 puff INHALATION RT-Q6H PRN 06/23/23 09/12/23 History Hfa Inhaler] ALPRAZolam [Xanax] 0.5 mg PO BID PRN 09/12/23 09/12/23 History Furosemide Oral Soln [Lasix] 40 mg PO DAILY 09/12/23 09/12/23 History RX: Potassium Chloride Oral Liquid 20 meq PO DAILY 09/12/23 09/12/23 History Allergies Allergy/AdvReac Type Severity Reaction Status Date / Time Penicillins Allergy Unknown Verified 09/12/23 20:30 hydrocodone AdvReac Nausea & Verified 09/12/23 20:30 Vomiting Physical Exam Vitals: Vital Signs Temp Pulse Resp BP Pulse Ox FiO2 09/14/23 10:00 118 H 35 H 159/90 94 L 09/14/23 09:46 128 H 09/14/23 09:39 117 H 25 H 09/14/23 09:28 120 H 24 35 09/14/23 09:00 105 H 29 H 128/61 92 L 09/14/23 08:00 97.8 F 74 30 H 141/76 99 09/14/23 07:30 79 21 142/75 97 09/14/23 07:00 90 23 146/84 98 09/14/23 06:30 120 H 22 144/70 94 L 09/14/23 06:00 98 20 112/56 98 09/14/23 05:30 76 22 111/51 98 09/14/23 05:00 99 20 132/66 98 09/14/23 04:49 35 09/14/23 04:30 112 H 24 109/96 98 09/14/23 04:00 98.4 F 78 20 110/55 97 09/14/23 03:30 86 22 112/56 97 09/14/23 03:00 89 23 103/51 97 09/14/23 02:30 75 20 119/54 99 09/14/23 02:00 98 22 99/66 98 09/14/23 01:30 90 18 132/67 97 09/14/23 01:00 104 H 17 145/76 95 09/14/23 00:30 112 H 31 H 143/63 96 09/14/23 00:10 35 09/14/23 00:00 98.2 F 111 H 18 141/74 93 L 09/13/23 23:45 100 22 106/63 98 09/13/23 23:30 100 18 125/73 98 09/13/23 23:00 71 13 101/52 98 09/13/23 22:30 86 19 113/75 96 09/13/23 22:00 85 22 92/51 99 09/13/23 21:30 84 21 112/54 99 09/13/23 21:00 86 22 118/51 98 09/13/23 20:52 50 09/13/23 20:30 84 20 102/55 96 09/13/23 20:00 97.9 F 95 23 114/64 92 L 09/13/23 19:30 104 H 16 97/53 90 L 09/13/23 19:00 69 19 95/46 100 09/13/23 18:30 74 26 H 92 L 09/13/23 18:15 50 09/13/23 18:00 75 24 78/42 92 L 09/13/23 17:30 97 28 H 110/53 98 09/13/23 17:00 96 23 90/71 99 09/13/23 16:38 67 09/13/23 16:30 66 14 87/44 98 09/13/23 16:26 67 09/13/23 16:00 97.7 F 81 27 H 87/46 97 09/13/23 15:30 72 14 93/47 95 09/13/23 15:00 66 18 89/46 95 09/13/23 14:49 35 09/13/23 14:30 79 15 91/48 96 09/13/23 14:00 92 30 H 96/47 94 L 09/13/23 13:30 78 24 100/53 95 09/13/23 13:00 74 24 92/49 95 09/13/23 12:30 83 27 H 93/46 94 L 09/13/23 12:02 35 09/13/23 12:00 96.4 F L 78 20 97/44 95 35 09/13/23 11:45 76 26 H 89/47 98 35 09/13/23 11:43 80 09/13/23 11:32 80 09/13/23 11:30 77 24 85/44 95 09/13/23 11:15 98 18 83/44 93 L 09/13/23 11:00 80 20 82/43 93 L Intake and Output 09/13/23 09/14/23 09/14/23 22:59 06:59 14:59 Intake Total 2605.558 430 320 Output Total 47 120 60 Balance 2558.558 310 260 Intake: IV 2590 430 320 Invasive Line 2 20 10 10 Invasive Line 3 20 10 10 Sodium Chloride 0.9% 1, 550 360 300 000 ml @ 75 mls/hr IV . [id number] [facility] Rx#:[id number] Sodium Chloride 0.9% 1, 2000 000 ml @ 999 mls/hr IV . Q1H1M [facility] Rx#:[id number] cefTRIAXone 2 gm In 50 Sodium Chloride 0.9% 50 ml @ 100 mls/hr IVPB Q24H [facility] Rx#:[id number] Intake, IV Titration 15.558 Amount Dexmedetomidine/0.9% NaCl 15.558 (Pmx) 400 mcg In Empty Bag 1 bag @ 0.2 MCG/KG/HR 2.54 mls/hr IV .Q24H [facility] Rx#:[id number] Output: Urine 47 120 60 Other: Voiding Method Indwelling Catheter Indwelling Catheter # Bowel Movements 0 Weight 55.7 kg Results CBC & Chem 7: 09/14/23 04:04 09/14/23 04:04 Labs: Abnormal Lab Results - Last 24 Hours (Table) 09/13/23 09/13/23 09/13/23 Range/Units 11:24 17:10 18:07 RBC 3.42 L (3.80-5.40) m/uL Hgb 7.3 L (11.4-16.0) gm/dL Hct 25.8 L (34.0-46.0) % MCV 75.4 L (80.0-100.0) fL MCH 21.5 L (25.0-35.0) pg MCHC 28.5 L (31.0-37.0) g/dL RDW 19.3 H (11.5-15.5) % Plt Count (150-450) k/uL Lymphocytes # (Manual) (1.0-4.8) k/uL ABG pH 7.21 L (7.35-7.45) ABG pCO2 75 H* (35-45) mmHg ABG pO2 75 L (83-108) mmHg ABG HCO3 30 H (21-25) mmol/L ABG Total CO2 32 H (19-24) mmol/L ABG O2 Saturation 92.9 L (94-97) % Potassium (3.5-5.1) mmol/L BUN (7-17) mg/dL POC Glucose (mg/dL) 142 H (70-110) mg/dL 09/14/23 09/14/23 Range/Units 04:04 04:04 RBC 3.59 L (3.80-5.40) m/uL Hgb 7.6 L (11.4-16.0) gm/dL Hct 27.5 L (34.0-46.0) % MCV 76.6 L (80.0-100.0) fL MCH 21.3 L (25.0-35.0) pg MCHC 27.8 L (31.0-37.0) g/dL RDW 19.4 H (11.5-15.5) % Plt Count 481 H (150-450) k/uL Lymphocytes # (Manual) 0.53 L (1.0-4.8) k/uL ABG pH (7.35-7.45) ABG pCO2 (35-45) mmHg ABG pO2 (83-108) mmHg ABG HCO3 (21-25) mmol/L ABG Total CO2 (19-24) mmol/L ABG O2 Saturation (94-97) % Potassium 5.5 H (3.5-5.1) mmol/L BUN 24 H (7-17) mg/dL POC Glucose (mg/dL) (70-110) mg/dL Microbiology - Last 24 Hours (Table) 09/12/23 22:55 Blood Culture - Preliminary Blood 09/12/23 22:40 Blood Culture Gram Stain - Preliminary Blood 09/12/23 18:58 Gram Stain - Preliminary Sputum Thrombosis Risk Factor Assmnt - Choose All That Apply Each Factor Represents 1 point: Abnormal pulmonary function (COPD) Other Risk Factors: Yes Each Risk Factor Represents 3 Points: Age 75 years or older Other congenital or acquired thrombophilia - If yes, enter type in comment: No Thrombosis Risk Factor Assessment Total Risk Factor Score: 4 Thrombosis Risk Factor Assessment Level: Moderate Risk Assessment and Plan Time with Patient: Greater than 30
[2023-09-14 11:25] VITALS: BMI 22.4
--- NOTE | 2023-09-14 14:49 | P.DS ---
Providers Date of admission: 09/12/23 20:48 Expected date of discharge: 09/14/23 Attending physician: Iliana Camarena Consults: 09/12/23 21:11 Consult Physician Urgent Consulting Provider: Homar Prabhakar Consult Reason/Comments: aecopd, bipap dependance Do you want consulting provider notified?: Yes Primary care physician: [facility] Course: Final diagnosis Shortness of breath with acute on chronic hypoxic respiratory failure secondary to COPD exacerbation History of advanced COPD conically wears 3 L outpatient Acute altered mental status, likely related to hypercapnic encephalopathy with hypoxia Leukocytosis, present on admission History of chronic anemia, likely TANIYA History of hypertension Recent diagnosis of acute COVID-19 with acute COVID-19 pneumonia Pulmonary nodules noted on the left, 10 mm Continued ongoing nicotine dependence GI prophylaxis DVT prophylaxis No code Discharge disposition Patient is being transitioned in a stable condition with guarded prognosis to [facility] services. Total time taken is greater than 35 minutes. Hospital course This is a [id number]-female who was recently admitted with significant shortness of breath with COPD exacerbation started on BiPAP having continued respiratory decline. Patient family discussed possible comfort care and monitored overnight and patient was able to wake up a little more and currently maintained on nasal cannula with multiple family members present. Patient and family have decided on hospice with [facility] and does meet inpatient criteria for advanced COPD with hypoxic respiratory failure. Patient will be transitioned to [facility] comfort measures and will be started on a morphine drip overall prognosis remains poor. Currently no reports of chest pain, reports continued shortness of breath, no reports of palpitations. Patient is afebrile. No reports of nausea or vomiting and patient reports to having no appetite. Patient will be transitioned to [facility] today. Overall poor prognosis Physical exam: Gen: This is a 77-year-old female who is awake, alert and oriented 2-3, thin built, elderly appearing, ill appearing HEENT: Head is atraumatic, normocephalic. Pupils equal, round. Sclerae is anicteric. NECK: Supple. No JVD. No lymphadenopathy. No thyromegaly. LUNGS: Breath sounds diminished bilaterally with scattered wheezes and rhonchi noted. No intercostal retractions. HEART: Regular rate and rhythm. No murmur. ABDOMEN: Soft. Bowel sounds are present. No masses. No tenderness. EXTREMITIES: No pedal edema. No calf tenderness. NEUROLOGICAL: Patient is awake, alert and oriented x2-3. Diffusely weak Please refer to medication reconciliation sheet for a list of medications. The impression and plan of care has been dictated by Ara Pickett, Nurse Practitioner as directed. Dr. Cira MD I have performed a history and examination and MDM of this patient, discussed the same with the dictator, and agree with the dictator's assessment and plan as written ,documented as a scribe. Based on total visit time, I have performed more than 50% of the visit. Patient Condition at Discharge: Poor Plan - Discharge Summary Discharge Rx Participant: No New Discharge Prescriptions: No Action RX: Ipratropium-Albuterol Nebulize [Duoneb 0.5 mg-3 mg/3 ml Soln] 3 ml INHALATION RT-Q6H RX: Montelukast [Singulair] 10 mg PO DAILY RX: ALPRAZolam [Xanax] 0.5 mg PO HS RX: Potassium Chloride Oral Liquid 20 meq PO DAILY ALPRAZolam [Xanax] 0.5 mg PO BID PRN PRN Reason: Anxiety RX: Albuterol Inhaler [Ventolin Hfa Inhaler] 1 - 2 puff INHALATION RT-Q6H PRN PRN Reason: Shortness Of Breath Furosemide Oral Soln [Lasix] 40 mg PO DAILY Discharge Medication List RX: ALPRAZolam [Xanax] 0.5 mg PO HS 09/29/20 [History] RX: Ipratropium-Albuterol Nebulize [Duoneb 0.5 mg-3 mg/3 ml Soln] 3 ml INHALATION RT-Q6H 09/29/20 [History] RX: Montelukast [Singulair] 10 mg PO DAILY 09/29/20 [History] RX: Albuterol Inhaler [Ventolin Hfa Inhaler] 1 - 2 puff INHALATION RT-Q6H PRN 06/23/23 [History] ALPRAZolam [Xanax] 0.5 mg PO BID PRN 09/12/23 [History] Furosemide Oral Soln [Lasix] 40 mg PO DAILY 09/12/23 [History] RX: Potassium Chloride Oral Liquid 20 meq PO DAILY 09/12/23 [History] Follow up Appointment(s)/Referral(s): Ministerio Iglesias DO [Primary Care Provider] - 1-2 days Discharge Disposition: HOME WITH HOSPICE
[2023-09-14] MEDS ORDERED: AZITHROMYCIN 500 MG in SODIUM CHLORIDE 0.9% 250 ML IVPB ONE (21:00)
--- NOTE | 2023-09-19 11:14 | CDI ---
Documentation Clarification Form Date: 09/19/2023 10:42:54 AM From: Vashti Luu RN, CCDS Email: [email or web address] Admit Date: 09/12/2023 08:48:00 PM Patient Name: Bindu Canela Visit Number: [id number] Discharge Date: 09/14/2023 11:10:00 AM ATTENTION: The Clinical Documentation Specialists (CDI) and [facility] Coding Staff appreciate your assistance in clarifying documentation. Please respond to the clarification below the line at the bottom and electronically sign. The CDI & [facility] Coding staff will review the response and follow-up if needed. Please note: Queries are made part of the Legal Health Record. If you have any questions, please contact the author of this message via ITS. Dr. Iliana Camarena Your patient was receiving IV antibiotics. Please clarify what condition/diagnosis was being treated. History/Risk Factors: Advanced COPD on home O2, smoker, anxiety, depression and HTN. Presented obtunded and in respiratory distress. Admitted with acute respiratory failure and COPD exacerbation. Clinical indicators: 09/12 Blood cultures: Haemophilus influenzae 09/12 Sputum culture: many haemophilus influenzae 09/12 WBC 14.1 09/13 Procalcitonin 0.28 09/12 vital signs: HR 121, RR 32 09/13 CXR: Underlying COPD and chronic interstitial lung disease with left basilar atelectasis favored over pneumonia. H&P: "EKG showed sinus tachycardia with a heart rate of 117. Leukocytosis, present on admission. Reported shortness of breath with cough and green sputum production. Started on empiric antibiotics although no significant findings noted on chest x-ray to suggest a pneumonia. 09/13 Consult: "There is no indication for an underlying pneumonia at this point in time." Discharge summary: "Shortness of breath with acute on chronic hypoxic respiratory failure secondary to COPD exacerbation." Treatment: IV Azithromycin 500mg x1 on 09/12; IV Rocephin 2gm x1 on 09/12; IV Rocephin 2gm Q24H 09/14; 0.9 NS 2L IV bolus on 09/13; 0.9 NS @75mL/hr 09/13-09/14; Duonebs QID 09/12-09/14; IV Solumedrol 09/12-09/14 What diagnosis were you treating with IV antibiotics [ ] Pneumonia, present on admission [ ] Sepsis, present on admission [ ] COPD exacerbation only [ x ] Other, please specify____concerns for possible pna on admission, although ruled out [ ] Unable to determine MTDD
== END 2023-09-14 11:10 | disposition hospice, inpatient (51) | DRG 189 ==
LOC: EC 18:40 → 3SCARD 20:48 → 2SICU 09-13 06:24
PROVIDERS: ADMIT Hospitalist; ATTEND Hospitalist
PROC: 5A09357 Assistance with Respiratory Ventilation, Less than 24 Consecutive Hours, Continuous Positive Airway Pressure (ICD-10-PCS; principal; 2023-09-12)
DX: J96.22 Acute and chronic respiratory failure with hypercapnia (principal); J44.1 Chronic obstructive pulmonary disease with (acute) exacerbation; G93.49 Other encephalopathy; J44.0 Chronic obstructive pulmonary disease with (acute) lower respiratory infection; J96.21 Acute and chronic respiratory failure with hypoxia; I73.9 Peripheral vascular disease, unspecified; I10 Essential (primary) hypertension; D50.9 Iron deficiency anemia, unspecified; J98.4 Other disorders of lung; R91.8 Other nonspecific abnormal finding of lung field; R53.81 Other malaise; F17.210 Nicotine dependence, cigarettes, uncomplicated; Z66 Do not resuscitate; Z51.5 Encounter for palliative care; Z99.81 Dependence on supplemental oxygen; Z86.16 Personal history of COVID-19; Z87.01 Personal history of pneumonia (recurrent); Z79.899 Other long term (current) drug therapy; Z88.0 Allergy status to penicillin; Z88.5 Allergy status to narcotic agent
CPT/HCPCS: 36415; 36600; 71045; 80048; 80053; 81001; 82805; 83605; 83880; 84145; 84484; 85025; 85027; 85379; 85610; 85730; 87040; 87070; 87205; 87636; 93005; 94640; 94660; 96365; 96367; 96375; 96376; 99291

== ENCOUNTER 2023-09-14 10:36 | Inpatient (IN) | payer MEDICAID ==
[2023-09-14] MEDS ORDERED: ACETAMINOPHEN SUPPOSITORY 650 MG SUPP RECTAL PRN (10:50)
[2023-09-14] MEDS ORDERED: ATROPINE OPHTH SOLN 1% 5ML BTL SUBLINGUAL PRN (10:50)
[2023-09-14] MEDS ORDERED: DRY MOUTH SPRAY 44.3 SPRAY/44.3 ML SPRAY MUCOUS MEM PRN (10:50)
[2023-09-14] MEDS ORDERED: ONDANSETRON 4 MG/2 ML VIAL IVP PRN (10:50)
[2023-09-14] MEDS ORDERED: MORPHINE SULFATE 4 MG/ML SYRINGE IV PRN (10:50)
[2023-09-14] MEDS ORDERED: GLYCOPYRROLATE 0.2 MG/ML 2 ML VIAL IVP PRN (10:50)
[2023-09-14] MEDS ORDERED: SCOPOLAMINE 1 MG/72 HR PATCH TRANSDERM SCH (11:00)
[2023-09-14] MEDS: LORazepam 2 MG/ML INJ IV PRN ×2 (11:57→14:34)
[2023-09-14] MEDS: MORPHINE SULFATE (100 MG/2 ML) 100 MG in SODIUM CHLORIDE 0.9% 100 ML IV SCH ×2 (12:00→17:30)
--- NOTE | 2023-09-14 14:52 | P.HPIM ---
History of Present Illness H&P Date: 09/14/23 This is a 77-year-old female who presented to the emergency department in severe respiratory distress brought by EMS for continued shortness of breath that had been progressively getting worse over the last few days. Patient reporting to having significant cough with mucus production requiring more oxygen in the outpatient setting. Patient was found to be in the mid 80s on nasal cannula and placed her on CPAP and transitioned to BiPAP on admission. Patient follows with Dr. Ni in the outpatient setting with past medical history of COPD and hypertension along with anxiety and depression with continued ongoing nicotine dependence. On admission chest x-ray shows no acute findings no significant interval change with trace bilateral pleural effusions and pulmonary nodules on the left including left upper lobe 10 mm nodule that appears stable with no focal consolidation or pneumothorax noted. EKG showed sinus tachycardia with a heart rate of 117. Patient had labs on admission showing an elevated white count of 14.1, hemoglobin was stable at 9.2, d-dimer was elevated, blood gases obtained showing a pCO2 of 77 and bicarb 32 with a CO2 of 35, sodium 133, potassium 5.0, creatinine within normal limits at 0.69, troponin was negative, bNP was minimally elevated at 1430 and pro-calcitonin was 0.28. Patient had coded/influenza/RSV testing which was negative. Patient was admitted with COPD exacerbation with severe hypoxic respiratory failure. She is no code and agreeable to BiPAP. 09/14/2023 Patient is seen and evaluated and follow-up this morning with multiple family members present and have not with [facility] and meets inpatient criteria and will be transitioned to [facility] services and being started on a morphine drip. Patient and family are agreeable with this and will be transitioned to [facility] hospice. We will continue to follow with hospice during this admission. Review Of Systems: Constitutional: No fever, no chills, no night sweats. No weight change. Ported increased fatigue or lethargy. No daytime sleepiness. EENT: No headache. No blurred vision or double vision, no loss of vision. No loss of Hearing, no ringing in the ears, no dizziness. No nasal drainage or congestion. No epistaxis. No sore throat. Lungs: Reports shortness of breath, with cough, and green sputum production. No wheezing. Cardiovascular: No chest pain, no lower extremity edema. No palpitations. No paroxysmal nocturnal dyspnea. No orthopnea. No lightheadedness or dizziness. No syncopal episodes. Abdominal: No abdominal pain. No nausea, vomiting. No diarrhea. No constipation. No bloody or tarry stools.. No loss of appetite. Genitourinary: No dysuria, increased frequency, urgency. No urinary retention. Musculoskeletal: No myalgias. No muscle weakness, no gait dysfunction, no frequent falls. No back pain. No neck pain. Integumentary: No wounds, no lesions. No rash or pruritus. No unusual bruising. No change in hair or nails. Neurologic: No aphasia. No facial droop. No change in mentation. No head injury. No headache. No paralysis. No paresthesia. Psychiatric: No depression. No anxiety. No mood swings. Endocrine: No abnormal blood sugars. No weight change. No excessive sweating or thirst. No cold intolerance. PHYSICAL EXAMINATION: GENERAL: The patient is alert and oriented x2-3, Well developed, thin built, ill-appearing. Elderly-appearing HEENT: Pupils are round and equally reacting to light. EOMI. no scleral icterus. No conjunctival pallor. Normocephalic, atraumatic. No pharyngeal erythema. No thyromegaly. CARDIOVASCULAR: S1 and S2 muffled PULMONARY: diminished breath sounds bilaterally with expiratory wheezing and coarse rhonchi noted. ABDOMEN: soft. Nontender on exam. non-distended, normoactive bowel sounds. No palpable organomegaly. MUSCULOSKELETAL: No joint swelling or deformity. EXTREMITIES: No cyanosis, clubbing, or pedal edema. NEUROLOGICAL: Gross neurological examination did not reveal any focal deficits. Diffuse weakness SKIN: No rashes. Assessment: Shortness of breath with acute on chronic hypoxic respiratory failure secondary to COPD exacerbation History of advanced COPD conically wears 3 L outpatient Acute altered mental status, likely related to hypercapnic encephalopathy with hypoxia Leukocytosis, present on admission History of chronic anemia, likely TANIYA History of hypertension Recent diagnosis of acute COVID-19 with acute COVID-19 pneumonia Pulmonary nodules noted on the left, 10 mm Continued ongoing nicotine dependence GI prophylaxis DVT prophylaxis No code Plan: Patient and family have met with [facility] and meets GIP criteria and will be transitioned to hospice services comfort measures only and being started on morphine drip. Other comfort medications ordered Patient currently on 3 L nasal cannula and tolerating Continue with comfort measures only Overall extremely poor and guarded prognosis Family members present with questions and concerns were answered to the best of our ability The impression and plan of care has been dictated by Ara Pickett, nurse practitioner as directed. Dr. Cira MD I have performed a history and examination and MDM of this patient, discussed the same with the dictator, and agree with the dictator's assessment and plan as written ,documented as a scribe. Based on total visit time, I have performed more than 50% of the visit. Any additional findings or plans will be noted. Past Medical History Past Medical History: COPD, Hypertension Additional Past Medical History / Comment(s): PVD. History of Any Multi-Drug Resistant Organisms: None Reported Past Surgical History: Bladder Surgery Additional Past Surgical History / Comment(s): carotid endarterectomy Past Anesthesia/Blood Transfusion Reactions: No Reported Reaction Past Psychological History: Anxiety, Depression Smoking Status: Current every day smoker, Second hand smoke exposure Past Alcohol Use History: None Reported Past Drug Use History: None Reported - Past Family History Mother Family Medical History: Congestive Heart Failure (CHF) Father Family Medical History: Myocardial Infarction ([place]) Medications and Allergies Home Medications Medication Instructions Recorded Confirmed Type ALPRAZolam [Xanax] 0.5 mg PO HS 09/29/20 09/14/23 History Ipratropium-Albuterol Nebulize 3 ml INHALATION RT-Q6H 09/29/20 09/14/23 History [Duoneb 0.5 mg-3 mg/3 ml Soln] Montelukast [Singulair] 10 mg PO DAILY 09/29/20 09/14/23 History Albuterol Inhaler [Ventolin Hfa 1 - 2 puff INHALATION RT-Q6H PRN 06/23/23 09/14/23 History Inhaler] ALPRAZolam [Xanax] 0.5 mg PO BID PRN 09/12/23 09/14/23 History Furosemide Oral Soln [Lasix] 40 mg PO DAILY 09/12/23 09/14/23 History Potassium Chloride Oral Liquid 20 meq PO DAILY 09/12/23 09/14/23 History Allergies Allergy/AdvReac Type Severity Reaction Status Date / Time Penicillins Allergy Unknown Verified 09/14/23 11:55 hydrocodone AdvReac Nausea & Verified 09/14/23 11:55 Vomiting Physical Exam Vitals: Vital Signs Pulse Resp 09/14/23 14:00 98 14 Intake and Output 09/13/23 09/14/23 09/14/23 22:59 06:59 14:59 Intake Total 31.947 Balance 31.947 Intake: IV 10 Invasive Line 1 10 Intake, IV Titration 21.947 Amount Morphine Sulfate (100 mg/ 21.947 2 ml) 100 mg In Sodium Chloride 0.9% 100 ml @ 1 MG/HR 1.02 mls/hr IV . Q24H [facility] Rx#:[id number] Other: Weight 55.7 kg
--- NOTE | 2023-09-14 19:27 | P.DS ---
Providers Date of admission: 09/14/23 11:10 Expected date of discharge: 09/14/23 Attending physician: Iliana Camarena Primary care physician: [facility] Course: Preliminary cause of Chronic obstructive pulmonary disease Final diagnosis Shortness of breath with acute on chronic hypoxic respiratory failure secondary to COPD exacerbation History of advanced COPD conically wears 3 L outpatient Acute altered mental status, likely related to hypercapnic encephalopathy with hypoxia, improved Leukocytosis, present on admission History of chronic anemia, likely TANIYA History of hypertension Recent diagnosis of acute COVID-19 with acute COVID-19 pneumonia Pulmonary nodules noted on the left, 10 mm Continued ongoing nicotine dependence GI prophylaxis DVT prophylaxis No code Discharge disposition Patient has . According to nursing documentation, time of was 1841 on 09/14/2023. Patient was continued on [facility] hospice comfort measures. Total time taken is greater than 35 minutes Hospital course This is a 77-year-old female who was recently admitted in acute on chronic hypoxic respiratory failure with significant shortness of breath maintained on BiPAP for severe COPD with significant history of COPD and continued ongoing nicotine dependence. Patient continued to clinically decline and patient was no code per her request and family had met with [facility] and agreeable to hospice inpatient criteria with comfort measures only. Patient was continued on morphine drip with multiple family members according to nursing documentation, time of was 1841 on 09/14/2023. Pulmonary video game repair technician following as well. Please refer to pulmonary documentation and previous documentation for further HPI. Overall prognosis was extremely poor and guarded. The impression and plan of care has been dictated by Ara Pickett, Nurse Practitioner as directed. Dr. Cira MD I have performed a history and examination and MDM of this patient, discussed the same with the dictator, and agree with the dictator's assessment and plan as written ,documented as a scribe. Based on total visit time, I have performed more than 50% of the visit. Patient Condition at Discharge: Poor Plan - Discharge Summary New Discharge Prescriptions: No Action Ipratropium-Albuterol Nebulize [Duoneb 0.5 mg-3 mg/3 ml Soln] 3 ml INHALATION RT-Q6H Montelukast [Singulair] 10 mg PO DAILY ALPRAZolam [Xanax] 0.5 mg PO HS Potassium Chloride Oral Liquid 20 meq PO DAILY ALPRAZolam [Xanax] 0.5 mg PO BID PRN PRN Reason: Anxiety Albuterol Inhaler [Ventolin Hfa Inhaler] 1 - 2 puff INHALATION RT-Q6H PRN PRN Reason: Shortness Of Breath Furosemide Oral Soln [Lasix] 40 mg PO DAILY Discharge Medication List ALPRAZolam [Xanax] 0.5 mg PO HS 09/29/20 [History] Ipratropium-Albuterol Nebulize [Duoneb 0.5 mg-3 mg/3 ml Soln] 3 ml INHALATION RT-Q6H 09/29/20 [History] Montelukast [Singulair] 10 mg PO DAILY 09/29/20 [History] Albuterol Inhaler [Ventolin Hfa Inhaler] 1 - 2 puff INHALATION RT-Q6H PRN 06/23/23 [History] ALPRAZolam [Xanax] 0.5 mg PO BID PRN 09/12/23 [History] Furosemide Oral Soln [Lasix] 40 mg PO DAILY 09/12/23 [History] Potassium Chloride Oral Liquid 20 meq PO DAILY 09/12/23 [History] Discharge Disposition: - Preliminary Cause of Preliminary Cause of : Chronic obstructive pulmonary disease
[2023-09-14 20:02] VITALS: PULSE 0; RESP 0
== END 2023-09-14 20:55 | disposition expired | DRG 951 ==
LOC: 2SICU 11:10
PROVIDERS: ADMIT Hospitalist; ATTEND Hospitalist
PROC: 5A09357 Assistance with Respiratory Ventilation, Less than 24 Consecutive Hours, Continuous Positive Airway Pressure (ICD-10-PCS; principal; 2023-09-14)
DX: Z51.5 Encounter for palliative care (principal); J96.21 Acute and chronic respiratory failure with hypoxia; J44.0 Chronic obstructive pulmonary disease with (acute) lower respiratory infection; J44.1 Chronic obstructive pulmonary disease with (acute) exacerbation; G93.40 Encephalopathy, unspecified; J90 Pleural effusion, not elsewhere classified; J44.9 Chronic obstructive pulmonary disease, unspecified; F32.A Depression, unspecified; F41.9 Anxiety disorder, unspecified; I10 Essential (primary) hypertension; I73.9 Peripheral vascular disease, unspecified; Z79.899 Other long term (current) drug therapy; D50.9 Iron deficiency anemia, unspecified; R00.0 Tachycardia, unspecified; Z82.49 Family history of ischemic heart disease and other diseases of the circulatory system; Z88.0 Allergy status to penicillin; Z88.5 Allergy status to narcotic agent